=== PATIENT | female | born 1945 | race Caucasian/White ===

== ENCOUNTER → 2016-06-18 | Outpatient (REF) | payer MEDICARE | LOC: M LAB REF 12:09 | PROVIDERS: ATTEND Physician Assistant Medical | DX: J02.9 Acute pharyngitis, unspecified (principal) ==

== ENCOUNTER 2016-10-18 17:30 | Emergency (ER) | payer MEDICARE ==
[~2016-10-18] VITALS: Ht 165.1 cm; Wt 54.7 kg
[2016-10-18] MEDS ORDERED: ESTR625TA (17:54)
[2016-10-18] MEDS ORDERED: CHLO125TA (17:54)
[2016-10-18] MEDS ORDERED: PANT40TA2 (17:54)
[2016-10-18] MEDS ORDERED: [UNRECOGNIZED DRUG - CODE] (17:54)
[2016-10-18] MEDS ORDERED: CHLO4TAB PO (17:54)
[2016-10-18] MEDS ORDERED: METH4PACK (17:54)
[2016-10-18] MEDS ORDERED: VITA200015 PO (17:54)
[2016-10-18] MEDS ORDERED: CLOP75TA2 (17:54)
[2016-10-18] MEDS ORDERED: LODI400T PO (17:54)
[2016-10-18 18:51] LABS: BASO # 0.1 K/mm3 (0.0-0.2); BASO % 0.9 % (0.0-1.0); EOS # 0.4 K/mm3 (0.0-0.50); EOS % 3.8 % (0.0-3.0); LARGE UNSTAINED CELL # 0.2 K/mm3 (0.0-0.4); LARGE UNSTAINED CELL % 1.5 % (0.0-4.0); LYMPH # 2.2 K/mm3 (1.5-4.5); LYMPH % 23.4 % (24.0-44.0); MEAN CORPUSCULAR HEMOGLOBIN 31.5 pg (27.0-33.0); MEAN CORPUSCULAR VOLUME 89.9 fl (80.0-96.0); MONO # 0.6 K/mm3 (0.0-0.8); MONO % 5.9 % (0.0-5.0); NEUTROPHILS # 6.1 K/mm3 (1.8-7.7); NEUTROPHILS % 64.4 % (36.0-66.0); PLATELET COUNT, AUTOMATED 302 k/mm3 (150-450); WHITE BLOOD COUNT 9.5 K/mm3 (4.0-10.0)
[2016-10-18 18:54] LABS: INR 0.85
[2016-10-18 18:56] LABS: CALCIUM LEVEL 9.1 MG/DL (8.8-10.2); CREATININE FOR GFR 0.98 MG/DL (0.55-1.02); GLOMERULAR FILTRATION RATE 59.6 (>39); POTASSIUM SERUM 3.6 MEQ/L (3.5-5.1)
--- NOTE | 2016-10-18 19:06 | REP ---
Clinical: Trauma. Headache . Comparison: None . Findings: The ventricles, sulci, and cisterns are normal in position and appearance. Cardona-white differentiation is maintained. No acute intracranial hemorrhage, mass/mass effect, pathology or trauma/injury. No evidence for acute infarction. No extra-axial fluid collection. Calvarium is intact. Paranasal sinuses and mastoid air cells are clear. 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 Impression: Prior aneurysmal clipping. No evidence for acute intracranial pathology or trauma/injury. Signed by Gavin Taylor MD 10/18/2016 06:57 P
--- NOTE | 2016-10-18 19:09 | REP ---
Clinical: Trauma. Technique: Axial noncontrast images from the skull base to the thoracic inlet with coronal and sagittal re-formations. Findings: Advanced multilevel degenerative changes include osteophytosis, endplate sclerosis and disc space narrowing along with hypertrophic changes to the uncovertebral joints. Findings are most pronounced at C1-C2 and the C4-5 and C3-4 levels as well as the C7-T1 level. No acute fracture / compression injury or subluxation. Spinal canal is patent. Posterior elements and spinous processes are intact. Paravertebral soft tissues are normal. Impression: Advanced multilevel degenerative changes. No acute fracture / compression injury or subluxation. Signed by Gavin Taylor MD 10/18/2016 07:00 P
--- NOTE | 2016-10-18 19:11 | REP ---
Clinical: Trauma. Technique: Axial noncontrast images through the facial bones to include the mandible with coronal and sagittal re-formations. Findings: A small scalp contusion overlies the midline frontal bone. Nasal bone and nasal septal deviation to the left appears chronic. The osseous structures are intact and there is no evidence for fracture or dislocation. Specifically, the bilateral zygomatic arches, nasal bones, and mandible including bilateral temporomandibular joints appear normal and symmetric. Mucoperiosteal opacification of the right maxillary sinus suggest sinusitis. The remainder of the sinuses and mastoid air cells are all well aerated and clear without fluid level to suggest occult trauma. The bilateral orbits including the globes and intraconal contents appear symmetric and normal. The surrounding soft tissues are grossly unremarkable. Impression: Mucoperiosteal opacification of the right maxillary sinus likely representing sinus disease and less likely trauma. No evidence for acute pathology or trauma/injury. Signed by Gavin Taylor MD 10/18/2016 07:03 P
[2016-10-18 20:20] VITALS: BP 138/64
== END 2016-10-18 20:21 | disposition home or self-care (01) ==
LOC: M ED 17:30
DX: R51 Headache (principal); Z98.890 Other specified postprocedural states; I72.8 Aneurysm of other specified arteries; Z86.79 Personal history of other diseases of the circulatory system; K57.30 Diverticulosis of large intestine without perforation or abscess without bleeding; Z87.42 Personal history of other diseases of the female genital tract; I47.1 Supraventricular tachycardia; M50.821 Other cervical disc disorders at C4-C5 level; M50.83 Other cervical disc disorders, cervicothoracic region; M50.81 Other cervical disc disorders, high cervical region; Z79.899 Other long term (current) drug therapy; Z88.6 Allergy status to analgesic agent; Z88.5 Allergy status to narcotic agent; Z88.2 Allergy status to sulfonamides; Z88.8 Allergy status to other drugs, medicaments and biological substances

== ENCOUNTER → 2016-11-08 | Outpatient (REF) | payer MEDICARE ==
[~2016-11-08] MED LIST: ASPI325T PO; AUGM875T28 PO; CHLO125TA; CHLO4TAB PO; CLOP75TA2; ESTR625TA; LODI400T PO; MAGN30TA2 PO; METH4PACK; PANT40TA2; VITA200015 PO; [UNRECOGNIZED DRUG - CODE]
[2016-11-08 14:29] LABS: BASO # 0.1 K/mm3 (0.0-0.2); BASO % 1.1 % (0.0-1.0); EOS # 0.4 K/mm3 (0.0-0.50); EOS % 5.4 % (0.0-3.0); LARGE UNSTAINED CELL # 0.1 K/mm3 (0.0-0.4); LARGE UNSTAINED CELL % 1.7 % (0.0-4.0); LYMPH # 1.8 K/mm3 (1.5-4.5); LYMPH % 23.7 % (24.0-44.0); MEAN CORPUSCULAR HEMOGLOBIN 31.8 pg (27.0-33.0); MEAN CORPUSCULAR HGB CONC 34.8 g/dl (32.0-36.5); MEAN CORPUSCULAR VOLUME 91.2 fl (80.0-96.0); MONO # 0.4 K/mm3 (0.0-0.8); MONO % 6.1 % (0.0-5.0); NEUTROPHILS # 4.4 K/mm3 (1.8-7.7); NEUTROPHILS % 62.1 % (36.0-66.0); PLATELET COUNT, AUTOMATED 322 k/mm3 (150-450)
== END ==
LOC: M LABDRWAD 13:58
PROVIDERS: ATTEND Physician Assistant Medical
DX: G50.1 Atypical facial pain (principal)

== ENCOUNTER 2016-11-09 11:01 | Emergency (ER) | payer MEDICARE ==
[~2016-11-09] VITALS: Ht 165.1 cm; Wt 54.5 kg
[~2016-11-09 11:01] MED LIST changes: -ASPI325T PO; -AUGM875T28 PO; -MAGN30TA2 PO
[2016-11-09 11:02] VITALS: BP 148/63
[2016-11-09] MEDS ORDERED: AUGM875T28 PO ×2 (11:17→11:40)
[2016-11-09] MEDS ORDERED: ASPI325T PO (11:17)
[2016-11-09] MEDS ORDERED: MAGN30TA2 PO (11:17)
== END 2016-11-09 11:53 | disposition home or self-care (01) ==
LOC: M ED 11:01
DX: K11.20 Sialoadenitis, unspecified (principal); Z79.82 Long term (current) use of aspirin; Z79.899 Other long term (current) drug therapy; Z88.6 Allergy status to analgesic agent; Z88.2 Allergy status to sulfonamides; Z88.5 Allergy status to narcotic agent; Z88.1 Allergy status to other antibiotic agents; Z88.8 Allergy status to other drugs, medicaments and biological substances

== ENCOUNTER → 2016-11-12 | Outpatient (REF) | payer MEDICARE ==
[~2016-11-12] MED LIST changes: +ASPI325T PO; +AUGM875T28 PO; +MAGN30TA2 PO
== END ==
LOC: M LAB REF 16:31
PROVIDERS: ATTEND Nurse Practitioner Family
DX: E83.42 Hypomagnesemia (principal)

== ENCOUNTER 2017-03-29 11:29 | Emergency (ER) | payer MEDICARE ==
[~2017-03-29] VITALS: Ht 165.1 cm; Wt 54.5 kg
[2017-03-29] MEDS ORDERED: ZOFR20TA PO (11:46)
[2017-03-29] MEDS ORDERED: MECLIZINE 25 MG TABLET PO ONE ×2 (12:30→14:15)
[2017-03-29] MEDS ORDERED: ONDANSETRON 4MG/2ML VIAL (J2405) IV ONE (12:30)
[2017-03-29] MEDS ORDERED: SODIUM CHLORIDE 0.9% 1000 ML IV ONE (12:30)
[2017-03-29 12:38] LABS: BASO # 0.1 10^3/uL (0.0-0.2); BASO % 0.7 % (0.0-1.0); EOS # 0.2 10^3/uL (0.0-0.50); EOS % 2.9 % (0.0-3.0); IMMATURE GRANULOCYTE % 0.3 % (0-0); LYMPH # 2.2 10^3/uL (1.5-4.5); LYMPH % 29.8 % (24.0-44.0); MEAN CORPUSCULAR HEMOGLOBIN 30.9 pg (27.0-33.0); MEAN CORPUSCULAR HGB CONC 33.9 g/dl (32.0-36.5); MONO # 0.6 10^3/uL (0.0-0.8); MONO % 8.3 % (0.0-5.0); NEUTROPHILS # 4.3 10^3/uL (1.8-7.7); PLATELET COUNT, AUTOMATED 289 10^3/uL (150-450); RED CELL DISTRIBUTION WIDTH 12.8 % (11.5-14.5); WHITE BLOOD COUNT 7.4 10^3/uL (4.0-10.0)
--- NOTE | 2017-03-29 12:54 | REP ---
CT of the brain without IV contrast: Comparison is 10/18/2016. There is no hemorrhage. There is no edema, mass effect or midline shift. The cortical stripe is unremarkable. The visualized paranasal sinuses and mastoid air cells are clear. An aneurysm clip is again identified, unchanged. Impression: There is no hemorrhage, acute infarct or mass. There is an aneurysm clip. No change from 10/18/2016. Signed by Jose De Jesus Reeves MD 03/29/2017 12:46 P
[2017-03-29 13:43] LABS: ANION GAP 8 MEQ/L (8-16); BLOOD UREA NITROGEN 23 MG/DL (7-18); CALCIUM LEVEL 9.2 MG/DL (8.8-10.2); CARBON DIOXIDE LEVEL 32 MEQ/L (21-32); CHLORIDE LEVEL 99 MEQ/L (98-107); CREATININE FOR GFR 0.96 MG/DL (0.55-1.02); FREE T4 1.04 NG/DL (0.76-1.46); GLOMERULAR FILTRATION RATE > 60.0 (>39); GLUCOSE, FASTING 84 MG/DL (83-110); MAGNESIUM LEVEL 1.7 MG/DL (1.8-2.4); POTASSIUM SERUM 3.7 MEQ/L (3.5-5.1); SODIUM LEVEL 139 MEQ/L (136-145)
[2017-03-29 14:01] LABS: METHADONE URINE NEGATIVE (NEGATIVE)
[2017-03-29] MEDS ORDERED: diazePAM 2 MG TAB PO ONE (14:15)
[2017-03-29] MEDS ORDERED: MAG SULF 1GM/100ML (MAG RUN) 1 GM in APPROPRIATE DILUENT 1 EA IV ONE (15:00)
[2017-03-29] MEDS ORDERED: DIAZ2TAB PO (15:20)
[2017-03-29] MEDS ORDERED: MECL-86 PO (15:20)
[2017-03-29] MEDS ORDERED: ONDA4TAB6 PO (15:20)
[2017-03-29 15:32] VITALS: BP 118/58
--- NOTE | 2017-03-29 19:38 | ECGEPIP ---
Stationary ECG Study [facility] - ED Test Date: 2017-03-29 Pat Name: VENUS GOLDEN Department: Room: - Gender: F Residential Sales Manager: fredis : 1945 Requested By: Joe Martinez Order Number: [id number] Reading MD: Joe Martinez Measurements Intervals Max Rate: 62 P: 13 CA: 181 QRS: -29 QRSD: 82 T: 46 QT: 443 QTc: 450 Interpretive Statements SINUS RHYTHM POSSIBLE RIGHT VENTRICULAR CONDUCTION DELAY MODERATE VOLTAGE CRITERIA FOR LVH, CONSIDER NORMAL VARIANT INFERIOR MYOCARDIAL INFARCTION, PROBABLY OLD LAD NO OLD ECG TO COMPARE TO Electronically Signed On 03-29-2017 19:38:27 EST by Joe Martinez
== END 2017-03-29 15:40 | disposition home or self-care (01) ==
LOC: M ED 11:29
DX: H81.10 Benign paroxysmal vertigo, unspecified ear (principal); I47.9 Paroxysmal tachycardia, unspecified; Z95.5 Presence of coronary angioplasty implant and graft; Z85.828 Personal history of other malignant neoplasm of skin; Z86.73 Personal history of transient ischemic attack (TIA), and cerebral infarction without residual deficits; Z79.82 Long term (current) use of aspirin; Z79.899 Other long term (current) drug therapy; Z88.8 Allergy status to other drugs, medicaments and biological substances; Z88.1 Allergy status to other antibiotic agents; Z88.2 Allergy status to sulfonamides; Z88.5 Allergy status to narcotic agent
CPT/HCPCS: 70450; 80048; 80307; 82550; 82553; 83605; 83735; 84439; 84443; 84484; 85025; 93005; 93041; 94760; 96365; 96375; 99285; J2405; J3475

== ENCOUNTER 2017-04-16 22:26 | Inpatient (IN) | payer MEDICARE ==
[2017-04-16] MEDS: NS 1,000 ML IV (22:57)
[2017-04-16 23:05] LABS: BASO # 0.1 10^3/uL (0.0-0.2); BASO % 0.3 % (0.0-1.0); EOS # 0.2 10^3/uL (0.0-0.50); EOS % 0.5 % (0.0-3.0); HEMATOCRIT 28.7 % (36.0-47.0); HEMOGLOBIN 9.9 g/dl (12.0-16.0); IMMATURE GRANULOCYTE # 0.4 10^3/uL (0-0); IMMATURE GRANULOCYTE % 1.2 % (0-0); LYMPH # 3.3 10^3/uL (1.5-4.5); LYMPH % 10.9 % (24.0-44.0); MEAN CORPUSCULAR HEMOGLOBIN 31.5 pg (27.0-33.0); MEAN CORPUSCULAR HGB CONC 34.5 g/dl (32.0-36.5); MEAN CORPUSCULAR VOLUME 91.4 fl (80.0-96.0); MONO # 1.6 10^3/uL (0.0-0.8); MONO % 5.1 % (0.0-5.0); PLATELET COUNT, AUTOMATED 332 10^3/uL (150-450); RED BLOOD COUNT 3.14 10^6/uL (4.00-5.40); RED CELL DISTRIBUTION WIDTH 13.1 % (11.5-14.5)
[2017-04-16 23:07] LABS: INR 0.89; PROTHROMBIN TIME 12.1 SECONDS (12.4-14.5)
[2017-04-16 23:08] LABS: PARTIAL THROMBOPLASTIN TIME 23.5 SECONDS (26.8-37.9)
[2017-04-16] MEDS: ONDANSETRON 4MG/2ML VIAL (J2405) IV (23:15)
[2017-04-16] MEDS: PANTOPRAZOLE 40MG INJ (PROTONIX) (C9113) IV (23:15)
[2017-04-16 23:19] LABS: ALBUMIN 2.7 GM/DL (3.2-5.2); ALBUMIN/GLOBULIN RATIO 0.84 (1.00-1.93); ALKALINE PHOSPHATASE 64 U/L (45-117); ANION GAP 11 MEQ/L (8-16); AST/SGOT 18 U/L (7-37); BILIRUBIN,DIRECT < 0.1 MG/DL (0.0-0.2); BILIRUBIN,TOTAL 0.2 MG/DL (0.2-1.0); BLOOD UREA NITROGEN 38 MG/DL (7-18); CALCIUM LEVEL 8.4 MG/DL (8.8-10.2); CARBON DIOXIDE LEVEL 28 MEQ/L (21-32); CHLORIDE LEVEL 100 MEQ/L (98-107); CPK CREATINE PHOSPHOKINASE 29 U/L (26-192); CREATININE FOR GFR 1.03 MG/DL (0.55-1.02); GLOMERULAR FILTRATION RATE 56.2 (>39); GLUCOSE, FASTING 256 MG/DL (83-110); LIPASE 226 U/L (73-393); POTASSIUM SERUM 3.3 MEQ/L (3.5-5.1); SODIUM LEVEL 139 MEQ/L (136-145); TOTAL PROTEIN 5.9 GM/DL (6.4-8.2); TROPONIN I < 0.02 NG/ML (< 0.10)
[2017-04-16 23:22] LABS: NEUTROPHILS # 25.1 10^3/uL (1.8-7.7); POS COUNT POS FLAG; POSITIVE DIFF POS FLAG; WHITE BLOOD COUNT 30.6 10^3/uL (4.0-10.0)
[2017-04-16 23:30] LABS: ALT/SGPT 16 U/L (12-78); CK-MB VALUE MASS 1.2 NG/ML (0.0-3.6); MB/CK RELATIVE INDEX 4.13 (< OR =4)
[2017-04-16] MEDS: POTASSIUM CHLORIDE 10 MEQ SR TABLET PO (23:38)
[2017-04-17] MEDS ORDERED: PANTOPRAZOLE SODIUM 40 MG in D5W 50 ML IV (00:30)
[2017-04-17] MEDS: NS 1,000 ML IV (01:46)
[2017-04-17 02:06] LABS: IMMEDIATE SPIN CROSSMATCH 1 2
[2017-04-17] MEDS: PANTOPRAZOLE SODIUM 40 MG in D5W 50 ML IV ×5 (03:24→20:28)
[2017-04-17 05:13] LABS: HEMATOCRIT 29.5 % (36.0-47.0); HEMOGLOBIN 10.3 g/dl (12.0-16.0); MEAN CORPUSCULAR HEMOGLOBIN 29.4 pg (27.0-33.0); MEAN CORPUSCULAR HGB CONC 34.9 g/dl (32.0-36.5); MEAN CORPUSCULAR VOLUME 84.3 fl (80.0-96.0); RED CELL DISTRIBUTION WIDTH 16.3 % (11.5-14.5)
[2017-04-17 05:14] LABS: HEMOGLOBIN 10.1 g/dl (12.0-16.0)
[2017-04-17 05:25] LABS: PLATELET COUNT, AUTOMATED 212 10^3/uL (150-450)
[2017-04-17 05:31] LABS: ANION GAP 12 MEQ/L (8-16); BLOOD UREA NITROGEN 34 MG/DL (7-18); CALCIUM LEVEL 7.2 MG/DL (8.8-10.2); CARBON DIOXIDE LEVEL 25 MEQ/L (21-32); CHLORIDE LEVEL 109 MEQ/L (98-107); CREATININE FOR GFR 0.77 MG/DL (0.55-1.02); GLOMERULAR FILTRATION RATE > 60.0 (>39); GLUCOSE, FASTING 132 MG/DL (83-110); POTASSIUM SERUM 3.6 MEQ/L (3.5-5.1); SODIUM LEVEL 146 MEQ/L (136-145)
[2017-04-17] MEDS: NS 0.45% 1,000 ML IV ×2 (09:57→19:25)
[2017-04-17] MEDS: KCL 10MEQ IN 100ML SWI (KRUN) 10 MEQ in APPROPRIATE DILUENT 1 EA IV (11:09)
[2017-04-17] MEDS ORDERED: PROPOFOL 200 MG/20 ML VIAL As Ordered ×2 (13:22→13:31)
[2017-04-17] MEDS ORDERED: LIDOCAINE 2% INJ 100 MG/5 ML SDV (FOR ANES.) As Ordered (13:23)
[2017-04-17 14:34] LABS: HEMOGLOBIN 9.2 g/dl (12.0-16.0)
[2017-04-17 18:13] LABS: HEMOGLOBIN 8.9 g/dl (12.0-16.0)
[2017-04-18 00:08] LABS: HEMOGLOBIN 8.2 g/dl (12.0-16.0)
[2017-04-18] MEDS: PANTOPRAZOLE SODIUM 40 MG in D5W 50 ML IV ×2 (01:04→06:33)
[2017-04-18] MEDS: NS 0.45% 1,000 ML IV (05:11)
[2017-04-18 05:13] LABS: HEMATOCRIT 23.5 % (36.0-47.0); HEMOGLOBIN 8.3 g/dl (12.0-16.0); MEAN CORPUSCULAR HEMOGLOBIN 29.7 pg (27.0-33.0); MEAN CORPUSCULAR HGB CONC 35.3 g/dl (32.0-36.5); MEAN CORPUSCULAR VOLUME 84.2 fl (80.0-96.0); PLATELET COUNT, AUTOMATED 169 10^3/uL (150-450); RED BLOOD COUNT 2.79 10^6/uL (4.00-5.40); RED CELL DISTRIBUTION WIDTH 17.3 % (11.5-14.5); WHITE BLOOD COUNT 7.1 10^3/uL (4.0-10.0)
[2017-04-18 05:23] LABS: ANION GAP 8 MEQ/L (8-16); BLOOD UREA NITROGEN 18 MG/DL (7-18); CALCIUM LEVEL 6.9 MG/DL (8.8-10.2); CARBON DIOXIDE LEVEL 28 MEQ/L (21-32); CHLORIDE LEVEL 107 MEQ/L (98-107); CREATININE FOR GFR 0.65 MG/DL (0.55-1.02); GLOMERULAR FILTRATION RATE > 60.0 (>39); GLUCOSE, FASTING 100 MG/DL (83-110); POTASSIUM SERUM 3.2 MEQ/L (3.5-5.1); SODIUM LEVEL 143 MEQ/L (136-145)
[2017-04-18] MEDS: POTASSIUM CHLORIDE 10 MEQ SR TABLET PO ×2 (06:47→10:18)
[2017-04-18] MEDS ORDERED: KCL 10MEQ IN 100ML SWI (KRUN) 10 MEQ in APPROPRIATE DILUENT 1 EA IV (07:00)
[2017-04-18] MEDS: ACETAMINOPHEN TAB 650MG DOSE (2X325MG) PO (08:08)
[2017-04-18 08:32] LABS: MAGNESIUM LEVEL 1.7 MG/DL (1.8-2.4)
[2017-04-18] MEDS: PANTOPRAZOLE 40MG TAB (PROTONIX) PO (10:18)
[2017-04-18] MEDS: diazePAM 2 MG TAB PO (10:30)
[2017-04-18] MEDS ORDERED: SLF 3 ML SYR IV (11:15)
[2017-04-18 12:13] LABS: HEMOGLOBIN 9.2 g/dl (12.0-16.0)
[2017-04-18] MEDS: SLF 3 ML SYR IV ×2 (13:26→21:04)
[2017-04-18] MEDS: ASPIRIN 81 MG CHEW TABLET PO (16:30)
[2017-04-18] MEDS: MAGNESIUM OXIDE 400 MG TAB (MAG-OX) PO (21:02)
[2017-04-18] MEDS: METOPROLOL TART 12.5 MG PER 1/2 TAB PO (21:03)
[2017-04-19 04:31] LABS: HEMATOCRIT 24.6 % (36.0-47.0); HEMOGLOBIN 8.3 g/dl (12.0-16.0); MEAN CORPUSCULAR HEMOGLOBIN 29.6 pg (27.0-33.0); MEAN CORPUSCULAR HGB CONC 33.7 g/dl (32.0-36.5); MEAN CORPUSCULAR VOLUME 87.9 fl (80.0-96.0); PLATELET COUNT, AUTOMATED 185 10^3/uL (150-450); RED CELL DISTRIBUTION WIDTH 16.9 % (11.5-14.5); WHITE BLOOD COUNT 6.3 10^3/uL (4.0-10.0)
[2017-04-19 04:47] LABS: ANION GAP 6 MEQ/L (8-16); BLOOD UREA NITROGEN 21 MG/DL (7-18); CALCIUM LEVEL 7.8 MG/DL (8.8-10.2); CARBON DIOXIDE LEVEL 30 MEQ/L (21-32); CHLORIDE LEVEL 107 MEQ/L (98-107); CREATININE FOR GFR 0.75 MG/DL (0.55-1.02); GLOMERULAR FILTRATION RATE > 60.0 (>39); GLUCOSE, FASTING 125 MG/DL (83-110); POTASSIUM SERUM 3.9 MEQ/L (3.5-5.1); SODIUM LEVEL 143 MEQ/L (136-145)
[2017-04-19] MEDS: SLF 3 ML SYR IV ×3 (06:00→20:55)
[2017-04-19 08:53] LABS: MAGNESIUM LEVEL 1.7 MG/DL (1.8-2.4)
[2017-04-19] MEDS: ASPIRIN 81 MG CHEW TABLET PO (09:07)
[2017-04-19] MEDS: PANTOPRAZOLE 40MG TAB (PROTONIX) PO (09:07)
[2017-04-19] MEDS: MAGNESIUM OXIDE 400 MG TAB (MAG-OX) PO ×2 (09:08→20:54)
[2017-04-19 11:57] LABS: HEMATOCRIT 26.3 % (36.0-47.0)
[2017-04-19 18:15] LABS: HEMATOCRIT 26.6 % (36.0-47.0); HEMOGLOBIN 9.2 g/dl (12.0-16.0)
[2017-04-19] MEDS: METOPROLOL TART 12.5 MG PER 1/2 TAB PO (20:54)
[2017-04-20] MEDS: MAG SULF 1GM/100ML (MAG RUN) 1 GM in APPROPRIATE DILUENT 1 EA IV (00:15)
[2017-04-20 00:21] LABS: HEMATOCRIT 23.5 % (36.0-47.0); HEMOGLOBIN 7.9 g/dl (12.0-16.0)
[2017-04-20 05:39] LABS: HEMATOCRIT 22.5 % (36.0-47.0); HEMOGLOBIN 7.6 g/dl (12.0-16.0); MEAN CORPUSCULAR HEMOGLOBIN 29.9 pg (27.0-33.0); MEAN CORPUSCULAR HGB CONC 33.8 g/dl (32.0-36.5); MEAN CORPUSCULAR VOLUME 88.6 fl (80.0-96.0); PLATELET COUNT, AUTOMATED 191 10^3/uL (150-450); RED BLOOD COUNT 2.54 10^6/uL (4.00-5.40); RED CELL DISTRIBUTION WIDTH 16.3 % (11.5-14.5); WHITE BLOOD COUNT 6.6 10^3/uL (4.0-10.0)
[2017-04-20 05:45] LABS: ANION GAP 8 MEQ/L (8-16); BLOOD UREA NITROGEN 22 MG/DL (7-18); CALCIUM LEVEL 7.8 MG/DL (8.8-10.2); CARBON DIOXIDE LEVEL 30 MEQ/L (21-32); CHLORIDE LEVEL 105 MEQ/L (98-107); CREATININE FOR GFR 0.69 MG/DL (0.55-1.02); GLOMERULAR FILTRATION RATE > 60.0 (>39); GLUCOSE, FASTING 109 MG/DL (83-110); MAGNESIUM LEVEL 2.1 MG/DL (1.8-2.4); POTASSIUM SERUM 3.6 MEQ/L (3.5-5.1); SODIUM LEVEL 143 MEQ/L (136-145)
[2017-04-20] MEDS: SLF 3 ML SYR IV ×3 (06:00→21:18)
[2017-04-20] MEDS: ASPIRIN 81 MG CHEW TABLET PO (09:01)
[2017-04-20] MEDS: PANTOPRAZOLE 40MG TAB (PROTONIX) PO (09:01)
[2017-04-20] MEDS: MAGNESIUM OXIDE 400 MG TAB (MAG-OX) PO (09:01)
[2017-04-20] MEDS: ACETAMINOPHEN TAB 650MG DOSE (2X325MG) PO (10:09)
[2017-04-20 12:05] LABS: IMMEDIATE SPIN CROSSMATCH 1 2
[2017-04-20 15:07] LABS: HEMATOCRIT 28.4 % (36.0-47.0); HEMOGLOBIN 9.8 g/dl (12.0-16.0)
[2017-04-20] MEDS: ONDANSETRON 4MG/2ML VIAL (J2405) IV (16:47)
[2017-04-20] MEDS: LR 1,000 ML IV (17:32)
[2017-04-20] MEDS: diazePAM 2 MG TAB PO (19:29)
[2017-04-20 19:49] LABS: HEMATOCRIT 26.8 % (36.0-47.0); HEMOGLOBIN 9.1 g/dl (12.0-16.0)
[2017-04-20] MEDS: PANTOPRAZOLE 40MG INJ (PROTONIX) (C9113) IV (21:18)
[2017-04-20] MEDS: METOPROLOL TART 12.5 MG PER 1/2 TAB PO (21:18)
[2017-04-21 00:03] LABS: HEMATOCRIT 23.7 % (36.0-47.0); HEMOGLOBIN 8.1 g/dl (12.0-16.0)
[2017-04-21] MEDS: LR 1,000 ML IV ×2 (02:30→21:10)
[2017-04-21 04:35] LABS: HEMATOCRIT 23.2 % (36.0-47.0); HEMOGLOBIN 7.8 g/dl (12.0-16.0); MEAN CORPUSCULAR HGB CONC 33.6 g/dl (32.0-36.5); MEAN CORPUSCULAR VOLUME 86.2 fl (80.0-96.0); PLATELET COUNT, AUTOMATED 191 10^3/uL (150-450); RED BLOOD COUNT 2.69 10^6/uL (4.00-5.40); WHITE BLOOD COUNT 7.2 10^3/uL (4.0-10.0)
[2017-04-21 04:59] LABS: ANION GAP 8 MEQ/L (8-16); BLOOD UREA NITROGEN 26 MG/DL (7-18); CALCIUM LEVEL 7.2 MG/DL (8.8-10.2); CARBON DIOXIDE LEVEL 27 MEQ/L (21-32); CHLORIDE LEVEL 108 MEQ/L (98-107); CREATININE FOR GFR 0.66 MG/DL (0.55-1.02); GLOMERULAR FILTRATION RATE > 60.0 (>39); GLUCOSE, FASTING 96 MG/DL (83-110); MAGNESIUM LEVEL 1.9 MG/DL (1.8-2.4); POTASSIUM SERUM 4.1 MEQ/L (3.5-5.1); SODIUM LEVEL 143 MEQ/L (136-145)
[2017-04-21] MEDS: SLF 3 ML SYR IV ×3 (06:00→21:09)
[2017-04-21] MEDS: PANTOPRAZOLE 40MG INJ (PROTONIX) (C9113) IV ×2 (08:01→21:08)
[2017-04-21] MEDS: diazePAM 2 MG TAB PO (08:01)
[2017-04-21 08:12] LABS: HEMATOCRIT 23.9 % (36.0-47.0); HEMOGLOBIN 8.1 g/dl (12.0-16.0)
[2017-04-21] MEDS: FLUTICASONE PROP 0.05% NASAL SPRAY 16 GM (FLONASE) (10:04)
[2017-04-21 10:40] LABS: IMMEDIATE SPIN CROSSMATCH 1 3
[2017-04-21] MEDS: ONDANSETRON 4MG/2ML VIAL (J2405) IV (10:43)
[2017-04-21] MEDS: ACETAMINOPHEN TAB 650MG DOSE (2X325MG) PO (10:44)
[2017-04-21] MEDS: LORazepam 2 MG/ML VIAL (J2060) IV ×2 (11:15→21:08)
[2017-04-21 13:41] LABS: HEMATOCRIT 26.6 % (36.0-47.0)
[2017-04-21 15:54] LABS: HEMATOCRIT 26.1 % (36.0-47.0); HEMOGLOBIN 8.8 g/dl (12.0-16.0)
[2017-04-21] MEDS: METOPROLOL TART 12.5 MG PER 1/2 TAB PO (21:09)
[2017-04-21 21:16] LABS: HEMATOCRIT 27.5 % (36.0-47.0); HEMOGLOBIN 9.2 g/dl (12.0-16.0)
[2017-04-22 01:18] LABS: INR 0.93; PROTHROMBIN TIME 12.5 SECONDS (12.4-14.5)
[2017-04-22 01:20] LABS: PARTIAL THROMBOPLASTIN TIME 23.7 SECONDS (26.8-37.9)
[2017-04-22 01:36] LABS: LACTIC ACID SEPSIS PROTOCOL 2.4 MMOL/L (0.4-2.0)
[2017-04-22 01:39] LABS: BASO % 0.4 % (0.0-1.0); EOS # 0.4 10^3/uL (0.0-0.50); EOS % 3.9 % (0.0-3.0); HEMATOCRIT 26.9 % (36.0-47.0); IMMATURE GRANULOCYTE # 0.1 10^3/uL (0-0); IMMATURE GRANULOCYTE % 0.7 % (0-0); LYMPH # 2.3 10^3/uL (1.5-4.5); LYMPH % 23.4 % (24.0-44.0); MEAN CORPUSCULAR HEMOGLOBIN 29.5 pg (27.0-33.0); MEAN CORPUSCULAR HGB CONC 33.5 g/dl (32.0-36.5); MEAN CORPUSCULAR VOLUME 88.2 fl (80.0-96.0); MONO # 0.7 10^3/uL (0.0-0.8); MONO % 6.7 % (0.0-5.0); NEUTROPHILS # 6.3 10^3/uL (1.8-7.7); NEUTROPHILS % 64.9 % (36.0-66.0); PLATELET COUNT, AUTOMATED 178 10^3/uL (150-450); RED BLOOD COUNT 3.05 10^6/uL (4.00-5.40); WHITE BLOOD COUNT 9.8 10^3/uL (4.0-10.0)
[2017-04-22 01:50] LABS: ANION GAP 8 MEQ/L (8-16); BLOOD UREA NITROGEN 15 MG/DL (7-18); CALCIUM LEVEL 7.9 MG/DL (8.8-10.2); CARBON DIOXIDE LEVEL 26 MEQ/L (21-32); CHLORIDE LEVEL 108 MEQ/L (98-107); CREATININE FOR GFR 0.82 MG/DL (0.55-1.02); GLOMERULAR FILTRATION RATE > 60.0 (>39); GLUCOSE, FASTING 108 MG/DL (83-110); POTASSIUM SERUM 3.8 MEQ/L (3.5-5.1); SODIUM LEVEL 142 MEQ/L (136-145)
[2017-04-22 02:08] LABS: ABG BASE EXCESS 0.5 (-2.0-2.0); ABG HCO3 23.7 MEQ/L (22.0-26.0); ABG O2 SATURATION 97.6 % (95.0-99.0); ABG PARTIAL PRESSURE CO2 32.2 mmHg (35.0-45.0); ABG PARTIAL PRESSURE O2 111.7 mmHg (75.0-100.0); ABG TOTAL CO2 24.6 MEQ/L (23.0-31.0); ABG pH (ARTERIAL) 7.484 UNITS (7.350-7.450)
[2017-04-22] MEDS: ONDANSETRON 4MG/2ML VIAL (J2405) IV ×2 (02:13→07:30)
[2017-04-22] MEDS: GOLYTELY SOLN 4000 ML BTL PO (03:14)
[2017-04-22] MEDS: SLF 3 ML SYR IV (05:54)
== END 2017-04-22 07:33 | disposition short-term general hospital (02) | DRG 378 ==
LOC: M ED 22:26 → M PCU 04-19 18:00 → M ICU 04-22 02:34 → M ED INP 04-17 00:38 → M ICU 04-17 01:23
PROC: 0DJ08ZZ Inspection of Upper Intestinal Tract, Via Natural or Artificial Opening Endoscopic (ICD-10-PCS; 2017-04-17 13:00)
PROC: 30233N1 Transfusion of Nonautologous Red Blood Cells into Peripheral Vein, Percutaneous Approach (ICD-10-PCS; principal; 2017-04-17 13:08)
DX: K92.1 Melena (principal); D62 Acute posthemorrhagic anemia; S06.5X9A Traumatic subdural hemorrhage with loss of consciousness of unspecified duration, initial encounter; F41.9 Anxiety disorder, unspecified; W18.30XA Fall on same level, unspecified, initial encounter; Y92.230 Patient room in hospital as the place of occurrence of the external cause; Z79.82 Long term (current) use of aspirin; Z79.899 Other long term (current) drug therapy; Z88.2 Allergy status to sulfonamides; Z88.8 Allergy status to other drugs, medicaments and biological substances; Z88.5 Allergy status to narcotic agent; Z88.1 Allergy status to other antibiotic agents; I10 Essential (primary) hypertension; I95.1 Orthostatic hypotension; K31.7 Polyp of stomach and duodenum; K57.30 Diverticulosis of large intestine without perforation or abscess without bleeding

== ENCOUNTER → 2017-06-17 | Outpatient (REF) | payer MEDICARE | LOC: M SFHCADAM 14:45 | DX: Z87.828 Personal history of other (healed) physical injury and trauma (principal); D50.0 Iron deficiency anemia secondary to blood loss (chronic); I72.5 Aneurysm of other precerebral arteries; I10 Essential (primary) hypertension ==

== ENCOUNTER → 2017-06-24 | Outpatient (REF) | payer MEDICARE ==
[2017-06-24 20:10] LABS: HEMATOCRIT 35.9 % (36.0-47.0); HEMOGLOBIN 11.3 g/dl (12.0-16.0); MEAN CORPUSCULAR HEMOGLOBIN 28.1 pg (27.0-33.0); MEAN CORPUSCULAR HGB CONC 31.5 g/dl (32.0-36.5); MEAN CORPUSCULAR VOLUME 89.3 fl (80.0-96.0); PLATELET COUNT, AUTOMATED 323 10^3/uL (150-450); RED BLOOD COUNT 4.02 10^6/uL (4.00-5.40); RED CELL DISTRIBUTION WIDTH 14.1 % (11.5-14.5); RETIC HEMOGLOBIN EQUIVALENT 29.5 pg (24-36); RETICULOCYTE # 47.4 10^9/L (17-77); RETICULOCYTE % 1.2 % (0.5-1.5); WHITE BLOOD COUNT 6.1 10^3/uL (4.0-10.0)
[2017-06-24 20:26] LABS: FOLATE 14.9 NG/ML (>5.4); TOTAL 25(OH) VITAMIN D 25.9 NG/ML (30.0-100.0); VITAMIN B12 LEVEL 416 PG/ML (247-911)
[2017-06-24 20:31] LABS: ALBUMIN 3.9 GM/DL (3.2-5.2); ALBUMIN/GLOBULIN RATIO 1.18 (1.00-1.93); ALKALINE PHOSPHATASE 104 U/L (45-117); ALT/SGPT 23 U/L (12-78); ANION GAP 8 MEQ/L (8-16); AST/SGOT 15 U/L (7-37); BILIRUBIN,TOTAL 0.4 MG/DL (0.2-1.0); BLOOD UREA NITROGEN 23 MG/DL (7-18); CALCIUM LEVEL 9.1 MG/DL (8.8-10.2); CARBON DIOXIDE LEVEL 30 MEQ/L (21-32); CHLORIDE LEVEL 103 MEQ/L (98-107); CHOLESTEROL LEVEL 176 MG/DL (<200); CHOLESTEROL RISK RATIO 5.677 (<5); CREATININE FOR GFR 1.06 MG/DL (0.55-1.30); FERRITIN 15 NG/ML (8-252); FREE T4 1.01 NG/DL (0.76-1.46); GLOMERULAR FILTRATION RATE 54.4 (>39); GLUCOSE, FASTING 92 MG/DL (70-100); HDL CHOLESTEROL 31 MG/DL (>40); IRON (FE) 47 UG/DL (50-170); NON-HDL-C 145 MG/DL; PERCENT SATURATION 13.2 % (13.2-45.0); POTASSIUM SERUM 4.4 MEQ/L (3.5-5.1); SODIUM LEVEL 141 MEQ/L (136-145); TOTAL IRON BINDING CAPACITY 357 UG/DL (250-450); TOTAL PROTEIN 7.2 GM/DL (6.4-8.2); TRIGLYCERIDES LEVEL 395 MG/DL (<150)
== END ==
LOC: M SFHCADAM 14:08
DX: D50.0 Iron deficiency anemia secondary to blood loss (chronic) (principal); I72.5 Aneurysm of other precerebral arteries; Z98.890 Other specified postprocedural states; E55.9 Vitamin D deficiency, unspecified; Z79.899 Other long term (current) drug therapy
CPT/HCPCS: 82746

== ENCOUNTER 2017-06-30 08:21 | Outpatient (RCR) | payer MEDICARE | END 2017-07-12 | LOC: M ST 08:21 | DX: R47.01 Aphasia (principal); F09 Unspecified mental disorder due to known physiological condition | CPT/HCPCS: 96125 ==

== ENCOUNTER 2017-07-15 13:17 | Outpatient (RCR) | payer MEDICARE | END 2017-08-11 | LOC: M ST 13:17 | DX: R47.01 Aphasia (principal); F09 Unspecified mental disorder due to known physiological condition | CPT/HCPCS: G0515 ==

== ENCOUNTER → 2017-07-25 | Outpatient (CLI) | payer MEDICARE | LOC: M PLARAD 13:01 | DX: R42 Dizziness and giddiness (principal); I67.2 Cerebral atherosclerosis | CPT/HCPCS: 70544 ==

== ENCOUNTER → 2017-10-31 | Outpatient (CLI) | payer MEDICARE | LOC: M ADAMS 16:09 | DX: M19.011 Primary osteoarthritis, right shoulder (principal); M25.711 Osteophyte, right shoulder; M75.81 Other shoulder lesions, right shoulder | CPT/HCPCS: 73030 ==

== ENCOUNTER 2017-11-24 | Emergency (ER) | payer MEDICARE ==
[2017-11-24] MEDS: NS 1,000 ML IV (00:58)
[2017-11-24 01:07] LABS: BASO # 0.1 10^3/uL (0.0-0.2); BASO % 0.7 % (0.0-1.0); EOS # 0.2 10^3/uL (0.0-0.50); EOS % 3.2 % (0.0-3.0); HEMATOCRIT 36.2 % (36.0-47.0); IMMATURE GRANULOCYTE % 0.6 % (0-3.0); LYMPH % 27.8 % (24.0-44.0); MEAN CORPUSCULAR HEMOGLOBIN 29.3 pg (27.0-33.0); MEAN CORPUSCULAR HGB CONC 33.1 g/dl (32.0-36.5); MEAN CORPUSCULAR VOLUME 88.5 fl (80.0-96.0); MONO # 0.6 10^3/uL (0.0-0.8); NEUTROPHILS # 4.2 10^3/uL (1.8-7.7); NEUTROPHILS % 58.7 % (36.0-66.0); PLATELET COUNT, AUTOMATED 243 10^3/uL (150-450); RED BLOOD COUNT 4.09 10^6/uL (4.00-5.40); RED CELL DISTRIBUTION WIDTH 13.6 % (11.5-14.5); WHITE BLOOD COUNT 7.1 10^3/uL (4.0-10.0)
[2017-11-24 01:22] LABS: ANION GAP 7 MEQ/L (8-16); BLOOD UREA NITROGEN 19 MG/DL (7-18); CALCIUM LEVEL 9.1 MG/DL (8.8-10.2); CARBON DIOXIDE LEVEL 27 MEQ/L (21-32); CHLORIDE LEVEL 107 MEQ/L (98-107); CREATININE FOR GFR 1.07 MG/DL (0.55-1.30); GLOMERULAR FILTRATION RATE 53.7 (>39); GLUCOSE, FASTING 144 MG/DL (70-100); KETONE, URINE AUTO RFX NEGATIVE (NEGATIVE); LEUKOCYTE ESTERASE UR AUTO RFX NEGATIVE (NEGATIVE); NITRITE, URINE AUTO RFX NEGATIVE (NEGATIVE); RBC, URINE AUTO RFX 2 /HPF (0-3); SODIUM LEVEL 141 MEQ/L (136-145); SPECIFIC GRAVITY UR AUTO RFX 1.002 (1.002-1.035); SQUAM EPITHELIAL CELL UR AURFX 0 /HPF (0-6); WBC, URINE AUTO RFX 0 /HPF (0-3)
[2017-11-24] MEDS: KETOROLAC 30 MG/ML VIAL (J1885) IV (01:45)
[2017-11-24] MEDS: TAMSULOSIN 0.4 MG CAP PO (01:50)
== END 2017-11-24 02:02 | disposition home or self-care (01) ==
LOC: M ED
DX: N20.1 Calculus of ureter (principal); K21.9 Gastro-esophageal reflux disease without esophagitis; Z87.442 Personal history of urinary calculi; Z88.1 Allergy status to other antibiotic agents; Z88.8 Allergy status to other drugs, medicaments and biological substances; Z88.2 Allergy status to sulfonamides; Z79.82 Long term (current) use of aspirin; Z79.899 Other long term (current) drug therapy
CPT/HCPCS: 74176

== ENCOUNTER → 2018-01-15 | Outpatient (CLI) | payer MEDICARE | LOC: M ADAMS 12:05 | DX: S16.1XXA Strain of muscle, fascia and tendon at neck level, initial encounter (principal); X58.XXXA Exposure to other specified factors, initial encounter; Y92.89 Other specified places as the place of occurrence of the external cause; M50.31 Other cervical disc degeneration, high cervical region; M50.321 Other cervical disc degeneration at C4-C5 level; M50.322 Other cervical disc degeneration at C5-C6 level; M50.323 Other cervical disc degeneration at C6-C7 level | CPT/HCPCS: 72050 ==

== ENCOUNTER → 2018-04-01 | Outpatient (REF) | payer MEDICARE ==
[~2018-04-01] MED LIST changes: +ASPI1TAB PO; +CHLO25TA PO; +DIAZ2TAB PO; +ESTR625TA PO; +FLON50SP; +FLUTISP; +MAGN64TASA PO; +MECL-68 PO; +MECL-86 PO; +ONDA4TAB6 PO; -PANT40TA2; +PANT40TA3; +PANT40TA3 PO; +SPIR-10; +VITA100067 PO; +ZOFR4TAB16 PO; +[UNRECOGNIZED DRUG - CODE] PO
[2018-04-01 19:48] LABS: HEMATOCRIT 37.7 % (36.0-47.0); HEMOGLOBIN 12.1 g/dl (12.0-15.5); MEAN CORPUSCULAR HEMOGLOBIN 29.5 pg (27.0-33.0); MEAN CORPUSCULAR HGB CONC 32.1 g/dl (32.0-36.5); PLATELET COUNT, AUTOMATED 265 10^3/uL (150-450); WHITE BLOOD COUNT 5.9 10^3/uL (4.0-10.0)
[2018-04-01 19:53] LABS: ALBUMIN 3.2 GM/DL (3.2-5.2); ALT/SGPT 16 U/L (12-78); BILIRUBIN,TOTAL 0.3 MG/DL (0.2-1.0); BLOOD UREA NITROGEN 25 MG/DL (7-18); CALCIUM LEVEL 8.9 MG/DL (8.8-10.2); CARBON DIOXIDE LEVEL 30 MEQ/L (21-32); CHLORIDE LEVEL 105 MEQ/L (98-107); CHOLESTEROL LEVEL 173 MG/DL (<200); CHOLESTEROL RISK RATIO 6.407 (<5); CREATININE FOR GFR 1.03 MG/DL (0.55-1.30); FERRITIN 8 NG/ML (8-252); GLOMERULAR FILTRATION RATE 56.1 (>39); GLUCOSE, FASTING 124 MG/DL (70-100); HDL CHOLESTEROL 27 MG/DL (>40); IRON (FE) 61 UG/DL (50-170); NON-HDL-C 146 MG/DL; PERCENT SATURATION 14.3 % (13.2-45.0); POTASSIUM SERUM 4.6 MEQ/L (3.5-5.1); SODIUM LEVEL 141 MEQ/L (136-145); TOTAL IRON BINDING CAPACITY 426 UG/DL (250-450); TOTAL PROTEIN 6.8 GM/DL (6.4-8.2); TRIGLYCERIDES LEVEL 890 MG/DL (<150)
[2018-04-01 19:54] LABS: TOTAL 25(OH) VITAMIN D 18.8 NG/ML (30.0-100.0)
== END ==
LOC: M SFHCADAM 15:22
PROVIDERS: ATTEND Family Medicine
DX: D50.0 Iron deficiency anemia secondary to blood loss (chronic) (principal); E04.1 Nontoxic single thyroid nodule; I10 Essential (primary) hypertension; Z87.828 Personal history of other (healed) physical injury and trauma; E55.9 Vitamin D deficiency, unspecified; Z23 Encounter for immunization
CPT/HCPCS: 80053; 80061; 82306; 82728; 83550; 84439; 84443; 85027; 85046; 90670; 90682; G0008; G0009; G0463

== ENCOUNTER → 2018-04-30 | Outpatient (CLI) | payer MEDICARE ==
--- NOTE | 2018-04-30 16:26 | REPMRS ---
Patient History The patient states she has not had a clinical breast exam in over a year. Patient is postmenopausal. No known family history of cancer. Taking hormonal contraceptives for 35 years beginning at age 37. Digital Woman Screen Mammo: April 30, 2018 - Exam #: [id number] Bilateral CC and MLO view(s) were taken. Technologist: Savanah Hernandez Technologist Prior study comparison: June 12, 2016, bilateral digital woman screen mammo, performed at [facility] [employer]. May 02, 2015, bilateral digital woman screen mammo, performed at [facility] [employer] [facility]. April 18, 2014, bilateral digital woman screen mammo, performed at [facility]. FINDINGS: The breast tissue is heterogeneously dense. This may lower the sensitivity of mammography. There are disbursed microcalcifications throughout the dense breast stroma bilaterally unchanged. There is a moderate amount of heterogeneously dense fibroglandular tissue which is fairly symmetric. There is no interval development of dominant mass, architectural distortion, or clustered microcalcification typical of malignancy. There has been no change in the appearance of the mammogram from the prior studies. 3-D tomosynthesis shows no additional findings. Assessment: BI-RADS/ACR category 2 mammogram. Benign finding(s). Recommendation Routine screening mammogram of both breasts in 1 year (for women over age 40). This patient's Lifetime Breast Cancer RIsk is estimated at 2.6 %. This mammogram was interpreted with the aid of an FDA-approved computer-aided dectection system. Electronically Signed By: Krish Moore MD 04/30/18 [id number]
--- NOTE | 2018-05-04 15:32 | DEXA ---
AP SPINE L1 - L4 1.432 1.7 3.5 LT FEMUR TOTAL 0.910 -0.8 0.8 LT NECK 0.945 -0.7 1.1 RT FEMUR TOTAL 1.014 0.1 1.7 RT NECK 1.082 0.3 2.1 TOTAL BODY TOTAL OTHER COMMENTS: Normal bone densitometry of the spine and hips. FOLLOW-UP: Recommendation for the next bone density exam: 5 years. JOSE MANUEL
== END ==
LOC: M WHC 07:15
PROVIDERS: ATTEND Family Medicine
DX: Z12.31 Encounter for screening mammogram for malignant neoplasm of breast (principal); Z13.820 Encounter for screening for osteoporosis; N60.31 Fibrosclerosis of right breast; N60.32 Fibrosclerosis of left breast; R92.0 Mammographic microcalcification found on diagnostic imaging of breast; Z78.0 Asymptomatic menopausal state

== ENCOUNTER → 2018-05-07 | Outpatient (REF) | payer MEDICARE | LOC: M LAB REF 12:30 | PROVIDERS: ATTEND Physician Assistant | DX: J02.9 Acute pharyngitis, unspecified (principal) ==

== ENCOUNTER → 2018-06-10 | Outpatient (CLI) | payer MEDICARE ==
--- NOTE | 2018-06-10 15:05 | REP ---
Clinical: Thyroid nodule. Technique: Real time green scale and color evaluation using linear high frequency transducer. Findings: Isthmus measures 2 mm in width. Right lobe measures 3.9 x 1.3 x 1.5 cm and includes 8.7 x 6.8 x 8.9 cm hypoechoic nonspecific nodule in the anterior mid pole. Left lobe measures 3.6 x 1.0 x 1.1 cm without nodule or cyst. Impression: Solitary hypoechoic nonspecific nodule in the right lobe. Electronically Signed by Gavin Taylor MD 06/10/2018 02:57 P
== END ==
LOC: M RAD 14:15
PROVIDERS: ATTEND Family Medicine
DX: E07.9 Disorder of thyroid, unspecified (principal)

== ENCOUNTER 2018-08-07 16:28 | Emergency (ER) | payer MEDICARE ==
[~2018-08-07] VITALS: Ht 165.1 cm; Wt 56.8 kg
[~2018-08-07 16:28] MED LIST changes: -CHLORPHENIRAMINE PO; -SPIR-10 PO; -[UNRECOGNIZED DRUG - OTHER]
[2018-08-07] MEDS ORDERED: SPIR-10 PO (16:50)
[2018-08-07] MEDS ORDERED: [UNRECOGNIZED DRUG - OTHER] (16:50)
[2018-08-07] MEDS ORDERED: ESTR625TA PO (16:50)
[2018-08-07] MEDS ORDERED: LODI400T PO (16:50)
[2018-08-07] MEDS ORDERED: CHLORPHENIRAMINE PO (16:50)
[2018-08-07 17:24] LABS: BASO # 0.1 10^3/uL (0.0-0.2); BASO % 0.9 % (0.0-1.0); EOS # 0.2 10^3/uL (0.0-0.50); EOS % 3.7 % (0.0-3.0); HEMATOCRIT 37.7 % (36.0-47.0); HEMOGLOBIN 12.6 g/dl (12.0-15.5); LYMPH # 2.2 10^3/uL (1.5-4.5); LYMPH % 33.8 % (24.0-44.0); MEAN CORPUSCULAR HEMOGLOBIN 30.6 pg (27.0-33.0); MEAN CORPUSCULAR HGB CONC 33.4 g/dl (32.0-36.5); MEAN CORPUSCULAR VOLUME 91.5 fl (80.0-96.0); MONO # 0.5 10^3/uL (0.0-0.8); MONO % 7.2 % (0.0-5.0); NEUTROPHILS # 3.5 10^3/uL (1.8-7.7); NEUTROPHILS % 54.1 % (36.0-66.0); PLATELET COUNT, AUTOMATED 250 10^3/uL (150-450); RED BLOOD COUNT 4.12 10^6/uL (4.00-5.40); WHITE BLOOD COUNT 6.5 10^3/uL (4.0-10.0)
[2018-08-07 17:36] LABS: INR 0.92; PROTHROMBIN TIME 12.4 SECONDS (12.1-14.4)
[2018-08-07 17:37] LABS: PARTIAL THROMBOPLASTIN TIME 27.1 SECONDS (25.4-37.6)
[2018-08-07 18:01] LABS: ALBUMIN 3.2 GM/DL (3.2-5.2); ALT/SGPT 20 U/L (12-78); BILIRUBIN,DIRECT < 0.1 MG/DL (0.0-0.2); BILIRUBIN,TOTAL 0.3 MG/DL (0.2-1.0); BLOOD UREA NITROGEN 27 MG/DL (7-18); CALCIUM LEVEL 8.3 MG/DL (8.8-10.2); CARBON DIOXIDE LEVEL 26 MEQ/L (21-32); CHLORIDE LEVEL 105 MEQ/L (98-107); CPK CREATINE PHOSPHOKINASE 76 U/L (26-192); GLOMERULAR FILTRATION RATE 57.9 (>39); GLUCOSE, FASTING 128 MG/DL (70-100); MB/CK RELATIVE INDEX 2.37 (< OR =4); POTASSIUM SERUM 4.5 MEQ/L (3.5-5.1); SODIUM LEVEL 138 MEQ/L (136-145); TOTAL PROTEIN 6.9 GM/DL (6.4-8.2); TROPONIN I < 0.02 NG/ML (< 0.10)
[2018-08-07 18:41] VITALS: BP 144/69
--- NOTE | 2018-08-07 20:30 | ECGEPIP ---
Stationary ECG Study [facility] - ED Test Date: 2018-08-07 Pat Name: VENUS GOLDEN Department: Room: - Gender: F Plastics Production Machine Operator: pmo : 1945 Requested By: PEARL Ricks Order Number: [id number] Reading MD: Sugey Pollock Measurements Intervals [place] Rate: 73 P: 14 MO: 175 QRS: -32 QRSD: 80 T: 62 QT: 407 QTc: 451 Interpretive Statements SINUS RHYTHM POSSIBLE RIGHT VENTRICULAR CONDUCTION DELAY MODERATE VOLTAGE CRITERIA FOR LVH, CONSIDER NORMAL VARIANT INFERIOR MYOCARDIAL INFARCTION, PROBABLY OLD WITH POSTERIOR EXTENSION DECREASED RATE 04/16/17 Electronically Signed On 08-07-2018 20:29:58 EDT by Sugey Pollock
== END 2018-08-07 18:47 | disposition short-term general hospital (02) ==
LOC: M ED 16:28
DX: I77.75 Dissection of other precerebral arteries (principal); I10 Essential (primary) hypertension; K21.9 Gastro-esophageal reflux disease without esophagitis; H83.09 Labyrinthitis, unspecified ear; Z79.82 Long term (current) use of aspirin; Z79.899 Other long term (current) drug therapy; Z88.2 Allergy status to sulfonamides; Z88.8 Allergy status to other drugs, medicaments and biological substances; Z88.5 Allergy status to narcotic agent

== ENCOUNTER → 2018-08-07 | Outpatient (CLI) | payer MEDICARE ==
[~2018-08-07] MED LIST changes: +ASPI-1 PO; -ASPI1TAB PO; -ASPI325T PO; +ASPI81TA26 PO; +CHLORPHENIRAMINE PO; +SPIR-10 PO; +[UNRECOGNIZED DRUG - OTHER]
--- NOTE | 2018-08-07 16:10 | REP ---
MRA BRAIN WITHOUT CONTRAST: HISTORY: Headache. 3D [id number] MR angiography was performed at the level of the [place]. 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 There is no recurrent aneurysm. There is no new aneurysm or arteriovenous malformation. Mild atherosclerotic disease involves the cavernous internal carotid arteries. Mild to moderate atherosclerotic disease involves the posterior cerebral and superior cerebellar arteries. A 10 mm linear focus of decreased signal intensity is present in the basilar artery. This is suspicious for a dissection. The major intracranial vessels are patent. The left vertebral artery is dominant. Impression:1. The patient is status post coiling of the basilar tip aneurysm. There is no recurrent aneurysm.2. There is a 10 mm linear focus of decreased signal intensity in the basilar artery suspicious for a dissection. Results were discussed with Katie Jhaveri at the 03:30 p.m. 02/06/2019 Electronically Signed by Nicholas Hunter MD 08/07/2018 04:26 P
--- NOTE | 2018-08-07 16:24 | REP ---
MR BRAIN WITHOUT CONTRAST: HISTORY: Headache. COMPARISON: CT 04/22/2017. An area of increased signal intensity on T2 weighted images is present in the left temporal lobe. There is dilatation of the overlying cortical sulci. This represents an old infarction. Areas of increased signal intensity on T2 weighted images are present in the periventricular and subcortical white matter. This represents small vessel ischemic disease. The sella turcica is partially empty. There is no intraparenchymal hemorrhage, acute infarct, mass or midline shift. The ventricular system and cortical sulci are dilated consistent with minimal volume loss. There is no extracerebral collection. 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 Mucosal thickening is present in the right maxillary sinus. IMPRESSION: 1. 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 2. Small vessel ischemic disease. 3. Minimal volume loss. Electronically Signed by Nicholas Hunter MD 08/07/2018 04:27 P
== END ==
LOC: M PLARAD 13:31
PROVIDERS: ATTEND Physician Assistant Medical
DX: I69.314 Frontal lobe and executive function deficit following cerebral infarction (principal); S06.5X1D Traumatic subdural hemorrhage with loss of consciousness of 30 minutes or less, subsequent encounter; X58.XXXD Exposure to other specified factors, subsequent encounter; Z86.79 Personal history of other diseases of the circulatory system; I67.82 Cerebral ischemia

== ENCOUNTER → 2018-08-12 | Outpatient (CLI) | payer MEDICARE ==
[~2018-08-12] MED LIST changes: +CHLORPHENIRAMINE PO; +LIDOCAINE 1% MDV 20ML VIAL As Ordered ONE; +SPIR-10 PO; +[UNRECOGNIZED DRUG - OTHER]
--- NOTE | 2018-08-12 16:42 | REP ---
ULTRASOUND-GUIDED RIGHT THYROID BIOPSY The procedure was performed under the direct supervision of Dr. Cardona. The patient has a history of and 8.7 x 6.8 x 8.9 mm hypoechoic nodule in the right anterior mid pole thyroid seen on a previous ultrasound dated 06/10/2018. The risks and benefits of the procedure were explained to the patient and informed consent was obtained. The right thyroid nodule was localized using ultrasound guidance. The skin was prepped and draped in a sterile fashion. 1% lidocaine was used as a local anesthetic. Using ultrasound guidance four fine-needle aspirations were obtained using 25 gauge needles. The patient tolerated the procedure well and there were no immediate complications. After the appropriate amount of monitored convalescence the patient was discharged from the department. Reviewed by ALBINA Tidwell 08/12/2018 04:25 P Electronically Signed by Jose De Jesus Cardona MD 08/12/2018 04:32 P
== END ==
LOC: M RADPRO 13:32
PROVIDERS: ATTEND Specialist
DX: E04.1 Nontoxic single thyroid nodule (principal); Z79.82 Long term (current) use of aspirin; Z79.899 Other long term (current) drug therapy; Z88.0 Allergy status to penicillin; Z88.2 Allergy status to sulfonamides; Z88.5 Allergy status to narcotic agent; Z88.8 Allergy status to other drugs, medicaments and biological substances

== ENCOUNTER → 2018-09-04 | Outpatient (CLI) | payer MEDICARE ==
[~2018-09-04] MED LIST changes: +ACEB200C13 PO; +ACET-683 PO; +AMOX875T2; +DITR5TAB PO; +FLUC10TA PO; +IBUP-1093 PO; +KETO10TAB PO; +LEVA750T7 PO; -LIDOCAINE 1% MDV 20ML VIAL As Ordered ONE; +OXYB5TAB10 PO; +RANI1TAB6 PO
--- NOTE | 2018-09-04 10:39 | REP ---
KUB, ONE VIEW: HISTORY: Kidney stones. A small amount of air is present in the intestine. There are no air fluid levels or dilated loops of intestine. There is no pneumoperitoneum. Calcifications are present overlying the kidneys consistent with nephrolithiasis. A left ureteral stent is present. There is scoliosis of the lumbar spine convex to the left. IMPRESSION: 1. Nonspecific bowel gas pattern. 2. Bilateral nephrolithiasis. Electronically Signed by Nicholas Hunter MD 09/04/2018 10:41 A
== END ==
LOC: M SMT 09:54
PROVIDERS: ATTEND Urology
DX: N20.0 Calculus of kidney (principal)
CPT/HCPCS: 74018; G0463

== ENCOUNTER 2018-09-17 01:50 | Day surgery (SDC) | payer MEDICARE ==
[~2018-09-17] VITALS: Ht 165.1 cm; Wt 56.8 kg
[~2018-09-17 01:50] MED LIST changes: -AMOX875T2; -DITR5TAB PO; -FLUC10TA PO; -IBUP-1093 PO; -KETO10TAB PO; -LEVA750T7 PO; -OXYB5TAB10 PO; -RANI1TAB6 PO
[2018-09-17] MEDS ORDERED: AMOX875T2 (01:56)
[2018-09-17] MEDS ORDERED: fentaNYL 100 MCG/2 ML INJECTION (J3010) IV ONE (02:15)
[2018-09-17] MEDS ORDERED: KETOROLAC 30 MG/ML VIAL (J1885) IV ONE (02:15)
[2018-09-17] MEDS ORDERED: ONDANSETRON 4MG/2ML VIAL (J2405) IV ONE ×3 (02:15→08:00)
[2018-09-17 02:34] LABS: BASO # 0.1 10^3/uL (0.0-0.2); BASO % 0.3 % (0.0-1.0); EOS # 0.2 10^3/uL (0.0-0.50); EOS % 1.3 % (0.0-3.0); HEMATOCRIT 37.1 % (36.0-47.0); HEMOGLOBIN 12.5 g/dl (12.0-15.5); LYMPH # 1.1 10^3/uL (1.5-4.5); LYMPH % 6.1 % (24.0-44.0); MEAN CORPUSCULAR HEMOGLOBIN 31.3 pg (27.0-33.0); MEAN CORPUSCULAR HGB CONC 33.7 g/dl (32.0-36.5); MONO # 1.3 10^3/uL (0.0-0.8); MONO % 7.1 % (0.0-5.0); NEUTROPHILS # 15.2 10^3/uL (1.8-7.7); NEUTROPHILS % 84.8 % (36.0-66.0); PLATELET COUNT, AUTOMATED 235 10^3/uL (150-450); RED BLOOD COUNT 3.99 10^6/uL (4.00-5.40); WHITE BLOOD COUNT 17.9 10^3/uL (4.0-10.0)
[2018-09-17 03:05] LABS: CALCIUM LEVEL 9.2 MG/DL (8.8-10.2); CREATININE FOR GFR 1.59 MG/DL (0.55-1.30); GLOMERULAR FILTRATION RATE 33.9 (>39); POTASSIUM SERUM 4.6 MEQ/L (3.5-5.1)
--- NOTE | 2018-09-17 04:01 | REPVR ---
EXAM: CT Abdomen and Pelvis Without Contrast EXAM DATE/TIME: 09/17/2018 2:11 AM CLINICAL HISTORY: 73 years old, female; Abdominal pain; Flank; Left; Patient HX: Recent stent removal ureteral; Additional info: Left renal colic TECHNIQUE: Imaging protocol: Axial computed tomography images of the abdomen and pelvis without contrast. Coronal and sagittal reformatted images were created and reviewed. Radiation optimization: All CT scans at this facility use at least one of these dose optimization techniques: automated exposure control; mA and/or kV adjustment per patient size (includes targeted exams where dose is matched to clinical indication); or iterative reconstruction. COMPARISON: CT ABD PELVIS W/O CONTRAST 09/01/2018 4:56 PM FINDINGS: Lungs: Atelectatic changes identified at the lung bases, left side greater than right. ABDOMEN: Liver: Normal as visualized on these noncontrast images. No mass. Gallbladder and bile ducts: No calcified stones. No ductal dilation. Pancreas: Normal contour. No ductal dilation. Spleen: Normal as visualized on these noncontrast images. No splenomegaly. Adrenals: No mass. Kidneys and ureters: There is bilateral nephrolithiasis. Stable hydronephrosis of the left kidney is identified, with a 7-8 mm obstructing calculus within the proximal left ureter. A small 3 mm obstructing calculus is also identified within the proximal left ureter. An additional tiny calculus is seen within the distal left ureter. There is a progression in the number of obstructing calculi compared to the prior study. A tiny calcification is identified adjacent to the distal left ureter. An additional calculus is difficult to exclude. Left perinephric stranding is again identified, and pyelonephritis cannot be excluded. No hydronephrosis of the right kidney. A few hypodense suggested cysts are again identified at the upper pole of the right kidney, the largest measuring 2.2 cm in diameter. Stomach and bowel: Colonic diverticula are identified. Mild stranding is identified adjacent to the descending colon and proximal sigmoid colon, which can be due to an extension of the perinephric stranding, although diverticulitis is also considered. Evaluation of bowel is limited by the absence of oral contrast. Mild gaseous and fecal distention of the rectum. Appendix: There appendix is not visualized. PELVIS: Bladder: Unremarkable as visualized. Reproductive: The uterus is absent. ABDOMEN and PELVIS: Intraperitoneal space: No free air. Bones/joints: There is levoscoliosis of the lumbar and lower thoracic spine. Pectus excavatum visualized. Hypertrophic degenerative changes are noted within the spine. Soft tissues: Unremarkable. Vasculature: There is atherosclerotic calcification of the abdominal aorta. Lymph nodes: No enlarged lymph nodes. IMPRESSION: 1. There is bilateral nephrolithiasis. Stable hydronephrosis of the left kidney is identified, with a 7-8 mm obstructing calculus within the proximal left ureter. A small 3 mm obstructing calculus is also identified within the proximal left ureter. An additional tiny calculus is seen within the distal left ureter. There is a progression in the number of obstructing calculi compared to the prior study. 2. Left perinephric stranding is again identified, and pyelonephritis cannot be excluded. 3. Colonic diverticula are identified. Mild stranding is identified adjacent to the descending colon and proximal sigmoid colon, which can be due to an extension of the perinephric stranding, although diverticulitis is also considered. 4. A few hypodense suggested cysts are again identified at the upper pole of the right kidney, the largest measuring 2.2 cm in diameter. 5. Additional findings described above. Electronically signed by: Reynaldo Brock On 09/17/2018 04:00:43 AM
[2018-09-17] MEDS ORDERED: AUGM875T28 PO (04:55)
[2018-09-17] MEDS ORDERED: RANI1TAB6 PO (04:55)
[2018-09-17] MEDS ORDERED: IBUP-1093 PO (04:55)
[2018-09-17] MEDS ORDERED: KETO10TAB PO (04:55)
[2018-09-17] MEDS ORDERED: NS 1,000 ML IV ONE (07:45)
[2018-09-17] MEDS ORDERED: LIDOCAINE 2% INJ 100 MG/5 ML SDV (FOR ANES.) As Ordered ONE (09:35)
[2018-09-17] MEDS ORDERED: ONDANSETRON 4MG/2ML VIAL (J2405) As Ordered ONE (09:35)
[2018-09-17] MEDS ORDERED: dexameTHASONE 4 MG/ML 1ML VIAL (J1100) As Ordered ONE (09:35)
[2018-09-17] MEDS ORDERED: PROPOFOL 200 MG/20 ML VIAL As Ordered ONE (09:35)
[2018-09-17] MEDS ORDERED: MIDAZOLAM INJ 2 MG/2 ML VIAL (J2250) As Ordered ONE (09:36)
[2018-09-17] MEDS ORDERED: CONRAY-60 60% 50ML VIAL (Q9961) As Ordered ONE (09:36)
[2018-09-17] MEDS ORDERED: fentaNYL 100 MCG/2 ML INJECTION (J3010) As Ordered ONE (09:36)
--- NOTE | 2018-09-17 09:47 | SMCUROLCON ---
Urology Consultation General Date of Consultation 09/17/18 Reason For Consultation This patient is seen for Kidney Stone. History of Present Illness This is a 73 y/o M w/ a PMH significant for HTN and nephrolithiasis, presenting to the ER w/ severe left flank pain. The patient notes that she started having severe left flank pain and n/v yesterday morning. Of note, she underwent cystoscopy, left ureteroscopy w/ laser lithotripsy, and left ureteral stent placement on 09/02/18 and then left ureteral stent removal 2 days ago. She had been scheduled to undergo left ESWL today but she cancelled this and requested that her stent be taken out a few days ago. She notes having dysuria since the stent was in place but denies hematuria. Her CT A/P in the ER was notable for an obstructing 8mm proximal left ureteral stone as well as a few additional stone fragments in the left ureter. Her WBC is elevated to 17.9, and her Cr is 1.6 from a baseline of 1.3. Her UA showed 2 WBCs/hpf. Past Medical History Medical History see HPI Surgical Hstory hysterectomy, ureteroscopy, right knee replacement Medications Current Medications Current Medications Home Med (Med Rec Complete!) ASDIRECTED XX ; Start 09/17/18 at 05:00; Stop 09/17/18 at 05:00; Status DC Allergies Allergies: Coded Allergies: Sulfa (Sulfonamide Antibiotics) (Verified Allergy, Unknown, SWOLLEN TONGUE, 09/17/18) cefaclor (Verified Allergy, Unknown, 09/17/18) cefuroxime (Verified Allergy, Unknown, HIVES, 09/17/18) ergocalciferol (vitamin D2) (Verified Allergy, Unknown, FACIAL SWELLING, 09/17/18) erythromycin base (Verified Allergy, Unknown, STOMACH ISSUES, 09/17/18) minocycline (Verified Allergy, Unknown, DIZZINESS, 09/17/18) montelukast (Verified Allergy, Unknown, INCREASED HEART RATE , 09/17/18) morphine (Verified Allergy, Unknown, CAUSED TROUBLE WAKING UP AFTER SURGERY, 09/17/18) tramadol (Verified Allergy, Unknown, INCREASED HEART RATE, 09/17/18) ubidecarenone (Verified Allergy, Unknown, 09/17/18) Review of Systems Constitutional: Denies: Fever, Chills, Sweats, Weakness, Malaise, Other Pulmonary: Denies: Dyspnea, Cough, Pleuritic Chest Pain, Other Symptoms Cardiovascular: Denies Chest Pain, Denies Palpitations, Denies Orthopnea, Denies Paroxysmal Noc. Dyspnea, Denies Edema, Denies Lt Headedness, Denies Other Symptoms Gastrointestinal: Reports: Nausea, Vomiting, Abdominal Pain (LLQ) Genitourinary: Reports: Dysuria; Denies: Hematuria Musculoskeletal: Reports: Back Pain (left flank) Neurological: Denies: Weakness, Numbness, Incoordination, Change in Speech Psych: Reports: Mood Normal; Denies: Anxiety, Depression Physical Examination General Exam: Alert, Cooperative Chest Exam: Normal air movement Heart Exam: Rate Normal, Regular Rhythm Abdomen Exam: Soft, Tenderness (LLQ) Skin Exam: Nl turgor and temperature Neuro Exam: Normal Speech Psych Exam: Mental status NL, Mood NL Vital Signs/I&O Vital Signs Date Time Temp Pulse Resp B/P (MAP) Pulse Ox O2 Delivery O2 Flow Rate FiO2 09/17/18 04:17 89 20 133/59 (83) 98 Room Air 09/17/18 01:50 97.1 Laboratory Data 24H Labs Laboratory Tests 2 09/17/18 02:19: Immature Granulocyte % (Auto) 0.4, White Blood Count 17.9H, Red Blood Count 3.99L, Hemoglobin 12.5, Hematocrit 37.1, Mean Corpuscular Volume 93.0, Mean Corpuscular Hemoglobin 31.3, Mean Corpuscular Hemoglobin Concent 33.7, Red Cell Distribution Width 12.7, Platelet Count 235, Neutrophils (%) (Auto) 84.8H, Lymphocytes (%) (Auto) 6.1L, Monocytes (%) (Auto) 7.1H, Eosinophils (%) (Auto) 1.3, Basophils (%) (Auto) 0.3, Neutrophils # (Auto) 15.2H, Lymphocytes # (Auto) 1.1L, Monocytes # (Auto) 1.3H, Eosinophils # (Auto) 0.2, Basophils # (Auto) 0.1, Nucleated Red Blood Cells % (auto) 0.0, Anion Gap 7L, Glomerular Filtration Rate 33.9L, Blood Urea Nitrogen 25H, Creatinine 1.59H, Sodium Level 139, Potassium Level 4.6, Chloride Level 103, Carbon Dioxide Level 29, Calcium Level 9.2 09/17/18 03:19: Urine Color STRAW, Urine Appearance CLEAR, Urine pH 5.0, Urine Specific [place] 1.012, Urine Protein NEGATIVE, Urine Glucose (UA) NEGATIVE, Urine Ketones NEGATIVE, Urine Blood NEGATIVE, Urine Nitrite NEGATIVE, Urine Bilirubin NEGATIVE, Urine Urobilinogen 0.2, Urine Leukocyte Esterase NEGATIVE, Urine WBC (Auto) 2, Urine RBC (Auto) 3, Urine Hyaline Casts (Auto) 0, Urine Bacteria (Auto) NEGATIVE, Urine Squamous Epithelial Cells 0, Urine Mucus (Auto) SMALL, Urine Sperm (Auto) CBC/BMP Laboratory Tests 09/17/18 02:19 Red Blood Count 3.99 L, Mean Corpuscular Volume 93.0, Mean Corpuscular Hemoglobin 31.3, Mean Corpuscular Hemoglobin Concent 33.7, Red Cell Distribution Width 12.7, Neutrophils (%) (Auto) 84.8 H, Lymphocytes (%) (Auto) 6.1 L, Monocytes (%) (Auto) 7.1 H, Eosinophils (%) (Auto) 1.3, Basophils (%) (Auto) 0.3, Neutrophils # (Auto) 15.2 H, Lymphocytes # (Auto) 1.1 L, Monocytes # (Auto) 1.3 H, Eosinophils # (Auto) 0.2, Basophils # (Auto) 0.1, Calcium Level 9.2 Assessment This is a 73 y/o F w/ left renal colic due to an obstructing 8mm left proximal ureteral stone. I recommended that we take her to the OR today for cystoscopy, left ureteroscopy w/ laser lithotripsy, and left ureteral stent placement to clear out her remaining stones on the left. After a discussion of the risks and benefits informed consent was signed. Plan - informed consent signed for cystoscopy, left ureteroscopy w/ laser lithotripsy, and left ureteral stent placement - ancef 2g IV preop - NPO - plan OR now GREY BUCHANAN MD Sep 17, 2018 08:43
[2018-09-17] MEDS ORDERED: PROMETHAZINE INJ 25 MG/ML VIAL (J2550) As Ordered ONE (09:53)
[2018-09-17] MEDS ORDERED: LevoFLOXacin IV 500 MG in APPROPRIATE DILUENT 1 EA IV ONE (10:00)
[2018-09-17] MEDS ORDERED: ROCURONIUM BROMIDE 50 MG/5 ML VIAL As Ordered ONE (10:01)
[2018-09-17] MEDS ORDERED: LevoFLOXacin(LEVAQUIN)500 MG/100 ML BAG (J1956) As Ordered ONE (10:02)
[2018-09-17] MEDS ORDERED: ACETAMINOPHEN 1000MG 100ML IV BTL (OFIRMEV) (J0131 PER 10MG) As Ordered ONE (10:26)
[2018-09-17] MEDS ORDERED: PHENYLephrine HCL 500 MCG/5 ML (100MCG/ML) SYRINGE (J2370) As Ordered ONE (10:32)
[2018-09-17] MEDS ORDERED: GLYCOPYRROLATE INJ 0.2 MG/ML 2 ML VIAL As Ordered ONE (10:33)
[2018-09-17] MEDS ORDERED: NEOSTIGMINE 10 MG/10 ML VIAL (J2710) As Ordered ONE (10:33)
[2018-09-17] MEDS ORDERED: ePHEDrine SULFATE 25 MG/5 ML(5MG/ML) SYRINGE As Ordered ONE (10:51)
--- NOTE | 2018-09-17 11:16 | RO ---
DATE OF PROCEDURE: 09/17/2018 PREPROCEDURE DIAGNOSIS: Left kidney and ureteral stones. POSTPROCEDURE DIAGNOSIS: Left kidney and ureteral stones. PROCEDURE: Cystoscopy, left ureteroscopy with laser lithotripsy and basket extraction of stones, left retrograde pyelogram with intraoperative interpretation of images, left ureteral stent placement. SURGEON: Dr. Gianfranco Johnston DUST COLLECTOR OPERATOR: None. ANESTHESIA: General. OPERATIVE INDICATIONS: This is a 73-year-old female who underwent a cystoscopy and left ureteroscopy and laser lithotripsy and stent placement two weeks ago. Of note, she had a residual approximately 1 cm lower pole stone which could not be reached at the time and the plan was to do an extracorporeal shockwave lithotripsy. The patient ultimately decided not to do that and wanted her stent removed and that was removed a few days ago. She presented to the emergency room earlier this morning with severe left flank pain and CT was notable for the 1 cm stone now at the left ureteropelvic junction causing obstruction. She was brought to the operating room for treatment. DESCRIPTION OF PROCEDURE: The patient was brought to the operating room where general anesthesia was induced. Prophylactic antibiotics were infused. She was then placed in dorsal lithotomy position and prepped and draped in the usual sterile fashion. A rigid cystoscope was inserted into the urethral meatus and advanced to the bladder. When inside the bladder, I then advanced a guidewire up the left collecting system. I then went up the left collecting system with a short semi-rigid ureteroscope and within the ureter two stones were seen, each measuring about 3 mm in size. Both were grasped with a basket and removed. I then removed the short semi-rigid ureteroscope and then advanced the ureteral access sheath up the left collecting system. I went up the access sheath with a flexible ureteroscope and then the kidney thoroughly. The patient had several smaller stone fragments within the left kidney. The 1 cm stone was also seen. This was then fragmented into smaller pieces using a 272 micron laser fiber. All the fragments were then removed using a basket. Once done basketing stones, the only thing remaining were very tiny stone debris that should easily pass. At this point, a retrograde pyelogram was performed and was notable for moderate left hydronephrosis with no extravasation. I then withdrew the ureteroscope along with the access sheath and no additional stones were seen within the ureter. I then utilized the wire to advance a 6 [place] x 22-32 cm JJ ureteral stent up into the left collecting system. The wire was then removed and there were adequate curls of the stent in the left renal pelvis and in the bladder. The bladder was emptied of all fluid and this marked the conclusion of the procedure. The patient was then taken out of the dorsal lithotomy position, awakened from anesthesia and transported to the recovery room in stable condition. Estimated blood loss: 5 mL. Complications: None. Specimen: Kidney stone fragments. Plan: The patient will followup in the clinic in a week or two for stent removal.
--- NOTE | 2018-09-17 11:28 | REP ---
RETROGRADE PYELOGRAM: HISTORY: Stent placement. Three radiographs were obtained with a C-arm. A small amount of contrast material is present in the left renal collecting system. The patient is status post left ureteral stent placement. Fluoroscopic time: 7 seconds. IMPRESSION: Retrograde pyelogram as described above. Electronically Signed by Nicholas Hunter MD 09/17/2018 11:34 A
[2018-09-17] MEDS ORDERED: oxyBUTYnin 5 MG TAB PO PRN (11:30)
[2018-09-17] MEDS ORDERED: fentaNYL 100 MCG/2 ML INJECTION (J3010) IV PRN (11:30)
[2018-09-17] MEDS ORDERED: ONDANSETRON 4MG/2ML VIAL (J2405) IV PRN (11:30)
[2018-09-17] MEDS ORDERED: NS 1,000 ML IV SCH (11:30)
[2018-09-17] MEDS ORDERED: METOCLOPRAMIDE INJ 10MG/2ML VIAL (J2765) IV PRN (11:30)
[2018-09-17 15:10] VITALS: BP 112/54
[2018-09-17] MEDS ORDERED: DITR5TAB PO (22:30)
[2018-09-17] MEDS ORDERED: ACET-683 PO (22:34)
[2018-09-18] MEDS ORDERED: OXYB5TAB10 PO (04:51)
[2018-09-18] MEDS ORDERED: DIAZ2TAB PO (07:18)
== END 2018-09-17 16:27 | disposition home or self-care (01) ==
LOC: M ED 01:50 → M SDC 08:25
PROVIDERS: ATTEND Urology
DX: N20.0 Calculus of kidney (principal)

== ENCOUNTER 2018-09-17 22:21 | Inpatient (IN) | payer MEDICARE ==
[~2018-09-17] VITALS: Ht 165.1 cm; Wt 61.9 kg
[~2018-09-17 22:21] MED LIST changes: +AMOX875T2; +IBUP-1093 PO; +KETO10TAB PO; +RANI1TAB6 PO
[2018-09-17] MEDS ORDERED: DITR5TAB PO (22:30)
[2018-09-17] MEDS ORDERED: ACET-683 PO (22:34)
[2018-09-17 23:28] LABS: BASO % 0.2 % (0.0-1.0); HEMATOCRIT 32.7 % (36.0-47.0); LYMPH # 0.3 10^3/uL (1.5-4.5); LYMPH % 2.1 % (24.0-44.0); MEAN CORPUSCULAR HEMOGLOBIN 30.9 pg (27.0-33.0); MEAN CORPUSCULAR HGB CONC 33.6 g/dl (32.0-36.5); MEAN CORPUSCULAR VOLUME 91.9 fl (80.0-96.0); MONO # 0.4 10^3/uL (0.0-0.8); MONO % 3.5 % (0.0-5.0); NEUTROPHILS # 11.9 10^3/uL (1.8-7.7); NEUTROPHILS % 93.7 % (36.0-66.0); PLATELET COUNT, AUTOMATED 179 10^3/uL (150-450); RED BLOOD COUNT 3.56 10^6/uL (4.00-5.40); WHITE BLOOD COUNT 12.7 10^3/uL (4.0-10.0)
[2018-09-17 23:50] LABS: ALBUMIN 2.6 GM/DL (3.2-5.2); BILIRUBIN,DIRECT 0.1 MG/DL (0.0-0.2); BILIRUBIN,TOTAL 0.4 MG/DL (0.2-1.0); CALCIUM LEVEL 7.9 MG/DL (8.8-10.2); CREATININE FOR GFR 1.91 MG/DL (0.55-1.30); GLOMERULAR FILTRATION RATE 27.4 (>39); POTASSIUM SERUM 4.2 MEQ/L (3.5-5.1); TOTAL PROTEIN 6.2 GM/DL (6.4-8.2)
[2018-09-18] MEDS ORDERED: NS 1,000 ML IV ONE (00:15)
--- NOTE | 2018-09-18 04:02 | REPVR ---
EXAM: XR Chest, 2 Views EXAM DATE/TIME: 09/18/2018 2:32 AM CLINICAL HISTORY: 73 years old, female; Signs and symptoms; Fever TECHNIQUE: Imaging protocol: XR of the chest, 2 views. COMPARISON: CR Chest, 2 view PA, Lat 04/16/2017 11:02 PM FINDINGS: Lungs: Bilateral lower lung opacities a right infrahilar midlung subsegmental atelectasis. A component of retrocardiac left lower lung subsegmental atelectasis an additional concern for pneumonic infiltrate or especially on the left. Pleural space: Unremarkable. No pleural effusion. No pneumothorax. Heart/Mediastinum: Stable heart size. Bones/joints: Lower thoracic curvature left concavity. IMPRESSION: Bilateral lower lung opacities concerning for pneumonic infiltrates greater on the left with additional subsegmental atelectasis retrocardiac left lower lung and right midlung. Electronically signed by: Katherine Houser On 09/18/2018 04:02:09 AM
[2018-09-18] MEDS: NS 1,000 ML IV SCH ×3 (04:26→18:42)
[2018-09-18] MEDS ORDERED: ACETAMINOPHEN TAB 650MG DOSE (2X325MG) PO ONE (04:30)
[2018-09-18] MEDS ORDERED: LevoFLOXacin IV 500 MG in APPROPRIATE DILUENT 1 EA IV ONE (04:30)
[2018-09-18] MEDS ORDERED: OXYB5TAB10 PO (04:51)
[2018-09-18] MEDS ORDERED: ACETAMINOPHEN TAB 650MG DOSE (2X325MG) PO PRN (06:00)
[2018-09-18] MEDS ORDERED: ONDANSETRON 4MG/2ML VIAL (J2405) IV PRN (06:15)
--- NOTE | 2018-09-18 06:15 | HPEPDOC ---
[facility] Medical History & Physical Date of Admission Sep 18, 2018 Date of Service: Sep 18, 2018 History and Physical CHIEF COMPLAINT: fever HISTORY OF PRESENT ILLNESS: Patient is 73-year-old female with past medical history of recurrent nephrolithiasis, hypertension, atrial fibrillation status post ablation, basal artery aneurysm s/p repair and subdural hematoma presented to the ER with complaints of fever and generalized malaise. She has had multiple urologic interventions in the past 2 weeks for kidney stones including most recently as yesterday lipthotripsy with Dr. Johnston. She reported some L. flank and generalized unwell. Workup in ER showed evidence of lower lobe infiltrate/PNA. Reports associated fevers but otherwise no other specific complaints. PAST MEDICAL HISTORY: Refer to HPI PAST SURGICAL HISTORY: Basal artery aneurysm repair cardiac Ablation SOCIAL HISTORY: Denies tobacco, alcohol or illicit drug use. FAMILY HISTORY: Father had kidney stones, CVA and Afib mother had dementia ALLERGIES: Please see below. REVIEW OF SYSTEMS: 10 point review of system negative except as stated in HPI HOME MEDICATIONS: Please see below. PHYSICAL EXAMINATION: General: Mild distress and generalized weakness Eyes: Normal sclera, EOMI, ALANNA HENT: Atraumatic, neck supple, moist mucous membranes Cardiovascular: Normal rate, normal rhythm. No murmurs appreciated. Pulmonary: Clear to auscultation b/l, no wheezing GI: Soft, nondistended. L. sided flank/CVA tenderness. Skin: Warm and dry Neuro: CN grossly intact. No focal deficits. Strengths equal b/l. Psych: oriented x 3 LABORATORY DATA: See below. IMAGING: CXR- IMPRESSION: Bilateral lower lung opacities concerning for pneumonic infiltrates greater on the left with additional subsegmental atelectasis retrocardiac left lower lung and right midlung. MICROBIOLOGY: Please see below. ASSESSMENT AND PLAN: 1. b/l CAP - febrile with elevated LA 2.5 and leukocytosis. - Started on Levaquin. Patient with multi drug allergies. - Gentle IVF hydration. 2. nephrolithiasis - With recent stent placement and procedures. - No urinary symptoms but persistent flank pain from stones. - Hold on urology consult for now but consider bringing on board with patient develop urinary symptoms. 3. HTN - Resume home meds. - Monitor BP. 4. Afib - no documented AC noted? - Resume home meds once reconciled. DVT ppx: HSQ Code status: Full code Vital Signs Vital Signs Date Time Temp Pulse Resp B/P (MAP) Pulse Ox O2 Delivery O2 Flow Rate FiO2 09/18/18 05:00 102 107/58 (74) 96 09/18/18 04:30 18 Room Air 09/18/18 04:14 101.7 Laboratory Data Labs 24H Laboratory Tests 2 09/17/18 23:14: Urine Color YELLOW, Urine Appearance HAZY, Urine pH 5.0, Urine Specific [place] 1.010, Urine Protein 2+H, Urine Glucose (UA) NEGATIVE, Urine Ketones NEGATIVE, Urine Blood 3+H, Urine Nitrite NEGATIVE, Urine Bilirubin NEGATIVE, Urine Urobilinogen 0.2, Urine Leukocyte Esterase 2+H, Urine WBC (Auto) 96H, Urine RBC (Auto) TNTCH, Urine Hyaline Casts (Auto) 0, Urine Bacteria (Auto) NEGATIVE, Urine Squamous Epithelial Cells 0, Urine Mucus (Auto) SMALL, Urine Yeast-Like Cells (Auto) SMALLH, Urine Sperm (Auto) 09/17/18 23:15: Immature Granulocyte % (Auto) 0.5, White Blood Count 12.7H, Red Blood Count 3.56L, Hemoglobin 11.0L, Hematocrit 32.7L, Mean Corpuscular Volume 91.9, Mean Corpuscular Hemoglobin 30.9, Mean Corpuscular Hemoglobin Concent 33.6, Red Cell Distribution Width 13.1, Platelet Count 179, Neutrophils (%) (Auto) 93.7H, Lymphocytes (%) (Auto) 2.1L, Monocytes (%) (Auto) 3.5, Eosinophils (%) (Auto) 0.0, Basophils (%) (Auto) 0.2, Neutrophils # (Auto) 11.9H, Lymphocytes # (Auto) 0.3L, Monocytes # (Auto) 0.4, Eosinophils # (Auto) 0.0, Basophils # (Auto) 0.0, Nucleated Red Blood Cells % (auto) 0.0, Anion Gap 11, Glomerular Filtration Rate 27.4L, Lactic Acid Level 2.5*H, Calcium Level 7.9L, Aspartate Amino Transf (AST/SGOT) 20, Alanine Aminotransferase (ALT/SGPT) 16, Alkaline Phosphatase 64, Total Bilirubin 0.4, Direct Bilirubin 0.1, Total Protein 6.2L, Albumin 2.6L, Albumin/Globulin Ratio 0.72L, Lipase 49L CBC/BMP Laboratory Tests 09/17/18 23:15 Red Blood Count 3.56 L, Mean Corpuscular Volume 91.9, Mean Corpuscular Hemoglobin 30.9, Mean Corpuscular Hemoglobin Concent 33.6, Red Cell Distribution Width 13.1, Neutrophils (%) (Auto) 93.7 H, Lymphocytes (%) (Auto) 2.1 L, Monocytes (%) (Auto) 3.5, Eosinophils (%) (Auto) 0.0, Basophils (%) (Auto) 0.2, Neutrophils # (Auto) 11.9 H, Lymphocytes # (Auto) 0.3 L, Monocytes # (Auto) 0.4, Eosinophils # (Auto) 0.0, Basophils # (Auto) 0.0 Microbiology Microbiology 09/17/18 Blood Culture, Received Pending 09/17/18 Blood Culture, Received Pending 09/17/18 Urine Culture, Received Pending Home Medications Scheduled Acebutolol HCl (Acebutolol HCl) 200 Mg Capsule, 200 MG PO QHS Amoxicillin/Potassium Clav (Augmentin 875-125 Tablet) 1 Each Tablet, 875 MG PO BID Aspirin (Aspirin EC) 81 Mg Tab, 81 MG PO DAILY Chlorpheniramine Maleate (Chlor-Trimeton) 4 Mg Tablet, 4 MG PO QHS Conjugated Estrogens (Premarin) 0.625 Mg Tablet, 0.625 MG PO QHS Etodolac (Lodine) 400 Mg Tablet, 400 MG PO QHS Fluticasone Propionate (Fluticasone Propionate) 50 Mcg/Act Spr, 2 SPRAYS NA DAILY Oxybutynin Chloride (Oxybutynin Chloride) 5 Mg Tablet, 5 MG PO TID Pantoprazole Sodium (Pantoprazole Sodium) 40 Mg Tab, 40 MG PO DAILY Ranitidine HCl (Ranitidine HCl) 150 Mg Tablet, 1 TAB PO QHS Spironolactone (Spironolactone) 25 Mg Tablet, 12.5 MG PO DAILY Scheduled PRN Acetaminophen (Acetaminophen) 500 Mg Tablet, 1,000 MG PO Q6H PRN for HEADACHE OR PAIN Ibuprofen (Ibuprofen) 200 Mg Tablet, 200 MG PO Q6H PRN for PAIN Ketorolac Tromethamine (Ketorolac Tromethamine) 10 Mg Tablet, 10 MG PO Q6H PRN for PAIN Allergies Coded Allergies: Sulfa (Sulfonamide Antibiotics) (Verified Allergy, Unknown, SWOLLEN TONGUE, 09/17/18) cefaclor (Verified Allergy, Unknown, 09/17/18) cefuroxime (Verified Allergy, Unknown, HIVES, 09/17/18) ergocalciferol (vitamin D2) (Verified Allergy, Unknown, FACIAL SWELLING, 09/17/18) erythromycin base (Verified Allergy, Unknown, STOMACH ISSUES, 09/17/18) minocycline (Verified Allergy, Unknown, DIZZINESS, 09/17/18) montelukast (Verified Allergy, Unknown, INCREASED HEART RATE , 09/17/18) morphine (Verified Allergy, Unknown, CAUSED TROUBLE WAKING UP AFTER SURGERY, 09/17/18) tramadol (Verified Allergy, Unknown, INCREASED HEART RATE, 09/17/18) ubidecarenone (Verified Allergy, Unknown, 09/17/18) A-FIB/CHADSVASC A-FIB History Current/History of A-Fib/PAF?: Yes Current PO Anticoag Therapy: No MARSHA MORENO MD Sep 18, 2018 06:15
[2018-09-18] MEDS: HEPARIN SOD (PORCINE) 5000 UNITS/ML VIAL SC SCH ×3 (06:30→21:43)
[2018-09-18] MEDS ORDERED: DIAZ2TAB PO (07:18)
[2018-09-18 07:57] LABS: HEMATOCRIT 29.3 % (36.0-47.0); HEMOGLOBIN 9.9 g/dl (12.0-15.5); MEAN CORPUSCULAR HEMOGLOBIN 31.5 pg (27.0-33.0); MEAN CORPUSCULAR HGB CONC 33.8 g/dl (32.0-36.5); MEAN CORPUSCULAR VOLUME 93.3 fl (80.0-96.0); PLATELET COUNT, AUTOMATED 151 10^3/uL (150-450); RED BLOOD COUNT 3.14 10^6/uL (4.00-5.40); WHITE BLOOD COUNT 7.7 10^3/uL (4.0-10.0)
[2018-09-18 08:05] LABS: CALCIUM LEVEL 7.3 MG/DL (8.8-10.2); CREATININE FOR GFR 1.52 MG/DL (0.55-1.30); GLOMERULAR FILTRATION RATE 35.7 (>39); POTASSIUM SERUM 4.1 MEQ/L (3.5-5.1)
[2018-09-18] MEDS: oxyBUTYnin 5 MG TAB PO SCH ×3 (09:00→20:06)
[2018-09-18] MEDS: SPIRONOLACTONE 12.5MG PER 1/2 TABLET PO SCH (09:24)
[2018-09-18] MEDS: PANTOPRAZOLE 40MG TAB (PROTONIX) PO SCH (09:25)
[2018-09-18] MEDS: METOPROLOL TART 50 MG TAB PO SCH ×2 (09:26→20:06)
[2018-09-18] MEDS: FLUTICASONE PROP 0.05% NASAL SPRAY 16 GM (FLONASE) SCH (09:27)
[2018-09-18] MEDS: ASPIRIN 81 MG ENTERIC TAB PO SCH (09:27)
--- NOTE | 2018-09-18 11:34 | IPNPDOC ---
Subjective Date Seen The patient was seen on 09/18/18. Subjective Chief Complaint/HPI Patient lying on stretcher as I entered the room. She reports to be tired Constitutional: Denies: Chills, Fever Pulmonary: Reports: Cough, Pleuritic Chest Pain; Denies: Dyspnea Cardiovascular: Denies: Chest Pain, Palpitations, Orthopnea, Edema Gastrointestinal: Denies: Nausea, Vomiting, Abdominal Pain Genitourinary: Denies: Dysuria, Frequency, Hematuria Psych: Reports: Mood Normal Objective Physical Examination General Exam: Positive: Alert, Cooperative, No Acute Distress Eye Exam: Positive: Conjunctiva & lids normal Neck Exam: Positive: Supple; Negative: JVD, Lymphadenopathy Chest Exam: Positive: Rhonchi (bilateral bases, faint ); Negative: Rales, Wheezing Heart Exam: Positive: Regular Rhythm, Other (98-10) Abdomen Exam: Positive: Normal bowel sounds, Soft; Negative: Tenderness Extremity Exam: Negative: Edema Psych Exam: Positive: Mood NL Assessment /Plan Problems (1) Pneumonia Status: Acute Problem Text: Started on Levaquin 750mg IV. Tmax 101.2. Tylenol for fever. O2 96% on RA. WBC 7.7, down from 12.7. BC pending. Lactic Acid down to 0.8 Chest X-poncho IMPRESSION: Bilateral lower lung opacities concerning for pneumonic infiltrates greater on the left with additional subsegmental atelectasis retrocardiac left lower lung and right midlung. (2) Acute kidney injury superimposed on chronic kidney disease Status: Acute Response to Treatment: Stable Problem Text: BUN/Cre 24/1.52, GFR 35. Baseline Cre ~1.0-1.2, GFR ~55. (3) Kidney stone Status: Chronic Response to Treatment: Stable Problem Text: Patient with a laser lithotripsy and stent placement performed yesterday. Urine culture pending Plan/VTE VTE Prophylaxis Ordered?: Yes (Heparin ) Plan Family Medicine Attending Note: I saw and examined Ms. Rea, discussed with Shawn Fofana DNP. Agree with her note as documented. Her fevers subsided by the afternoon and she reported that she was generally feeling better by the time I saw her. 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) VS, I&O, 24H, Fishbone Vital Signs/I&O Vital Signs Date Time Temp Pulse Resp B/P (MAP) Pulse Ox O2 Delivery O2 Flow Rate FiO2 09/18/18 09:26 101 128/59 09/18/18 09:00 101.2 17 96 Room Air I&O- Last 24 Hours up to 6 AM 09/18/18 06:00 Intake Total 1100 ml Balance 1100 ml Laboratory Data 24H LABS Laboratory Tests 2 09/17/18 23:14: Urine Color YELLOW, Urine Appearance HAZY, Urine pH 5.0, Urine Specific [place] 1.010, Urine Protein 2+H, Urine Glucose (UA) NEGATIVE, Urine Ketones NEGATIVE, Urine Blood 3+H, Urine Nitrite NEGATIVE, Urine Bilirubin NEGATIVE, Urine U robilinogen 0.2, Urine Leukocyte Esterase 2+H, Urine WBC (Auto) 96H, Urine RBC (Auto) TNTCH, Urine Hyaline Casts (Auto) 0, Urine Bacteria (Auto) NEGATIVE, Urine Squamous Epithelial Cells 0, Urine Mucus (Auto) SMALL, Urine Yeast-Like Cells (Auto) SMALLH, Urine Sperm (Auto) 09/17/18 23:15: Immature Granulocyte % (Auto) 0.5, White Blood Count 12.7H, Red Blood Count 3.56L, Hemoglobin 11.0L, Hematocrit 32.7L, Mean Corpuscular Volume 91.9, Mean Corpuscular Hemoglobin 30.9, Mean Corpuscular Hemoglobin Concent 33.6, Red Cell Distribution Width 13.1, Platelet Count 179, Neutrophils (%) (Auto) 93.7H, Lymphocytes (%) (Auto) 2.1L, Monocytes (%) (Auto) 3.5, Eosinophils (%) (Auto) 0.0, Basophils (%) (Auto) 0.2, Neutrophils # (Auto) 11.9H, Lymphocytes # (Auto) 0.3L, Monocytes # (Auto) 0.4, Eosinophils # (Auto) 0.0, Basophils # (Auto) 0.0, Nucleated Red Blood Cells % (auto) 0.0, Anion Gap 11, Glomerular Filtration Rate 27.4L, Lactic Acid Level 2.5*H, Calcium Level 7.9L, Aspartate Amino Transf (AST/SGOT) 20, Alanine Aminotransferase (ALT/SGPT) 16, Alkaline Phosphatase 64, Total Bilirubin 0.4, Direct Bilirubin 0.1, Total Protein 6.2L, Albumin 2.6L, Albumin/Globulin Ratio 0.72L, Lipase 49L 09/18/18 07:19: Nucleated Red Blood Cells % (auto) 0.0, Anion Gap 9, Glomerular Filtration Rate 35.7L, Calcium Level 7.3L, Lactic Acid Followup at 4 Hours 0.8, Blood Urea Nitrogen 24H, Creatinine 1.52H, Sodium Level 139, Potassium Level 4.1, Chloride Level 107, Carbon Dioxide Level 23 CBC/BMP Laboratory Tests 09/17/18 23:15 Red Blood Count 3.56 L, Mean Corpuscular Volume 91.9, Mean Corpuscular Hemoglobin 30.9, Mean Corpuscular Hemoglobin Concent 33.6, Red Cell Distribution Width 13.1, Neutrophils (%) (Auto) 93.7 H, Lymphocytes (%) (Auto) 2.1 L, Monocytes (%) (Auto) 3.5, Eosinophils (%) (Auto) 0.0, Basophils (%) (Auto) 0.2, Neutrophils # (Auto) 11.9 H, Lymphocytes # (Auto) 0.3 L, Monocytes # (Auto) 0.4, Eosinophils # (Auto) 0.0, Basophils # (Auto) 0.0 09/18/18 07:19 Red Blood Count 3.14 L, Mean Corpuscular Volume 93.3, Mean Corpuscular Hemoglobin 31.5, Mean Corpuscular Hemoglobin Concent 33.8, Red Cell Distribution Width 13.2, Calcium Level 7.3 L Microbiology Microbiology 09/18/18 Blood Culture, Received Pending 09/18/18 Blood Culture, Received Pending 09/17/18 Blood Culture, Received Pending 09/17/18 Blood Culture, Received Pending 09/17/18 Urine Culture, Received Pending SHAWN FOFANA Sep 18, 2018 11:34 Kristopher Tejeda MD Sep 18, 2018 20:36
[2018-09-18 12:00] VITALS: BP 95/56
[2018-09-18] MEDS: IBUPROFEN 200 MG TAB PO PRN ×2 (12:35→20:06)
[2018-09-18 14:00] VITALS: BP 104/50
[2018-09-18 17:50] VITALS: BP 100/38
[2018-09-18 20:00] VITALS: BP 112/52
[2018-09-18 20:32] VITALS: BP 119/84
[2018-09-18] MEDS ORDERED: ALPRAZolam 0.5 MG TAB PO PRN (22:15)
[2018-09-19] MEDS: NS 1,000 ML IV SCH ×4 (00:20→19:50)
[2018-09-19] MEDS: HEPARIN SOD (PORCINE) 5000 UNITS/ML VIAL SC SCH ×3 (05:58→21:39)
[2018-09-19] MEDS: IBUPROFEN 200 MG TAB PO PRN ×3 (06:04→19:50)
[2018-09-19 06:26] VITALS: BP 122/84
[2018-09-19 06:53] LABS: HEMATOCRIT 34.5 % (36.0-47.0); MEAN CORPUSCULAR HEMOGLOBIN 30.6 pg (27.0-33.0); MEAN CORPUSCULAR HGB CONC 31.9 g/dl (32.0-36.5); MEAN CORPUSCULAR VOLUME 95.8 fl (80.0-96.0); PLATELET COUNT, AUTOMATED 147 10^3/uL (150-450); WHITE BLOOD COUNT 6.6 10^3/uL (4.0-10.0)
[2018-09-19 07:17] LABS: CREATININE FOR GFR 1.3 MG/DL (0.55-1.30); GLOMERULAR FILTRATION RATE 42.7 (>39); POTASSIUM SERUM 4.2 MEQ/L (3.5-5.1)
[2018-09-19 07:35] LABS: ATYPICAL LYMPH 2 % (0-5); EOSINOPHILS 1 % (0-5); LYMPHOCYTES 12 % (16-52); MONOCYTES 2 % (0-8); NEUTROPHILS 75 % (35-75)
[2018-09-19 07:37] LABS: PLATELET ESTIMATE NORMAL (NORMAL)
[2018-09-19] MEDS: oxyBUTYnin 5 MG TAB PO SCH ×3 (09:00→21:00)
[2018-09-19] MEDS: FLUTICASONE PROP 0.05% NASAL SPRAY 16 GM (FLONASE) SCH (09:00)
[2018-09-19] MEDS: ASPIRIN 81 MG ENTERIC TAB PO SCH (10:06)
[2018-09-19] MEDS: PANTOPRAZOLE 40MG TAB (PROTONIX) PO SCH (10:06)
[2018-09-19] MEDS: METOPROLOL TART 50 MG TAB PO SCH ×2 (10:06→21:00)
[2018-09-19] MEDS: SPIRONOLACTONE 12.5MG PER 1/2 TABLET PO SCH (10:07)
[2018-09-19 11:19] VITALS: BP 110/46
[2018-09-19] MEDS: MEROPENEM INJ 1 GM in APPROPRIATE DILUENT 1 EA IV SCH ×2 (13:07→21:40)
[2018-09-19] MEDS ORDERED: PROCHLORPERAZINE 5 MG TAB (S0183) PO ONE (13:30)
[2018-09-19 14:30] VITALS: BP 126/82
[2018-09-19 20:18] VITALS: BP 104/52
--- NOTE | 2018-09-20 00:57 | IPNPDOC ---
Subjective Date Seen The patient was seen on 09/19/18. Subjective Events since last encounter Seen with family at bedside. She reports that while she is coughing, she is more bothered by her nausea. Family states Zofran has not been helpful in the past, though Compazine has been. Constitutional: Reports: Chills, Fever Pulmonary: Reports: Dyspnea, Cough Cardiovascular: Reports: Chest Pain; Denies: Palpitations Gastrointestinal: Reports: Nausea Objective Physical Examination General Exam: Positive: Alert, Cooperative, Mild Distress (developing another fever, trembling) Eye Exam: Positive: Conjunctiva & lids normal Neck Exam: Positive: Supple; Negative: JVD, Lymphadenopathy Chest Exam: Positive: Rhonchi (bilateral bases, faint ); Negative: Rales, Wheezing Heart Exam: Positive: Regular Rhythm, Other (98-10) Abdomen Exam: Positive: Normal bowel sounds, Soft; Negative: Tenderness Extremity Exam: Negative: Edema Psych Exam: Positive: Mood NL Assessment /Plan Problems (1) Pneumonia Status: Acute Problem Text: 09/19: Leukocytosis improved but patient still febrile. Added meropenem to Levaquin as recent hospitalization provided Pseudomonal risk factors; allergic to many antibiotic classes. Started on Levaquin 750mg IV. Tmax 101.2. Tylenol for fever. O2 96% on RA. WBC 7.7, down from 12.7. BC pending. Lactic Acid down to 0.8 Chest X-poncho IMPRESSION: Bilateral lower lung opacities concerning for pneumonic infiltrates greater on the left with additional subsegmental atelectasis retrocardiac left lower lung and right midlung. (2) Acute kidney injury superimposed on chronic kidney disease Status: Acute Response to Treatment: Stable Problem Text: BUN/Cre 24/1.52, GFR 35. Baseline Cre ~1.0-1.2, GFR ~55. (3) Kidney stone Status: Chronic Response to Treatment: Stable Problem Text: Patient with a laser lithotripsy and stent placement performed yesterday. Urine culture pending Plan/VTE VTE Prophylaxis Ordered?: Yes (Heparin ) VS, I&O, 24H, Fishbone Vital Signs/I&O Vital Signs Date Time Temp Pulse Resp B/P (MAP) Pulse Ox O2 Delivery O2 Flow Rate FiO2 09/19/18 21:00 2.0 09/19/18 21:00 99 104/52 09/19/18 20:18 99.1 18 97 09/18/18 09:00 Room Air I&O- Last 24 Hours up to 6 AM 09/20/18 06:00 Intake Total 450 ml Output Total 625 ml Balance -175 ml Laboratory Data 24H LABS Laboratory Tests 2 09/19/18 06:18: Nucleated Red Blood Cells % (auto) 0.0, Neutrophils 75, Band Neutrophils 8, Lymphocytes (Manual) 12L, Monocytes (Manual) 2, Eosinophils (Manual) 1, Atypical Lymphocytes 2, Platelet Estimate NORMAL, Anion Gap 8, Glomerular Filtration Rate 42.7, Blood Urea Nitrogen 20H, Creatinine 1.30, Sodium Level 140, Potassium Level 4.2, Chloride Level 110H, Carbon Dioxide Level 22, Calcium Level 8.0L CBC/BMP Laboratory Tests 09/19/18 06:18 Red Blood Count 3.60 L, Mean Corpuscular Volume 95.8, Mean Corpuscular Hemoglobin 30.6, Mean Corpuscular Hemoglobin Concent 31.9 L, Red Cell Distribution Width 13.2, Calcium Level 8.0 L Microbiology Microbiology 09/19/18 Blood Culture, Received Pending 09/19/18 Blood Culture, Received Pending 09/18/18 Blood Culture - Preliminary, Resulted No growth after 24 hours . All specim... 09/18/18 Blood Culture - Preliminary, Resulted No growth after 24 hours . All specim... 09/17/18 Blood Culture - Preliminary, Resulted No Growth after 48 hours. All Specime... 09/17/18 Blood Culture - Preliminary, Resulted No Growth after 48 hours. All Specime... 09/17/18 Urine Culture - Final, Complete PAO MOSQUEDA DO Sep 20, 2018 00:57
[2018-09-20] MEDS: NS 1,000 ML IV SCH ×3 (02:08→21:24)
[2018-09-20] MEDS: IBUPROFEN 200 MG TAB PO PRN ×3 (02:08→21:24)
[2018-09-20] MEDS: IPRATROPIUM 0.5MG/ALBUTEROL 2.5MG INH SOL UD 3ML (DUONEB)(J7620) NEB PRN ×3 (03:27→23:27)
[2018-09-20] MEDS: LevoFLOXacin IV 750 MG in APPROPRIATE DILUENT 1 EA IV SCH (04:33)
[2018-09-20 06:00] LABS: BASO % 0.4 % (0.0-1.0); EOS % 0.5 % (0.0-3.0); HEMATOCRIT 26.6 % (36.0-47.0); LYMPH # 0.8 10^3/uL (1.5-4.5); LYMPH % 13.6 % (24.0-44.0); MEAN CORPUSCULAR HEMOGLOBIN 29.5 pg (27.0-33.0); MEAN CORPUSCULAR HGB CONC 32.3 g/dl (32.0-36.5); MEAN CORPUSCULAR VOLUME 91.1 fl (80.0-96.0); MONO # 0.5 10^3/uL (0.0-0.8); MONO % 8.2 % (0.0-5.0); NEUTROPHILS # 4.3 10^3/uL (1.8-7.7); NEUTROPHILS % 76.9 % (36.0-66.0); PLATELET COUNT, AUTOMATED 142 10^3/uL (150-450); RED BLOOD COUNT 2.92 10^6/uL (4.00-5.40); WHITE BLOOD COUNT 5.6 10^3/uL (4.0-10.0)
[2018-09-20] MEDS ORDERED: LevoFLOXacin IV 750 MG in APPROPRIATE DILUENT 1 EA IV SCH (06:00)
[2018-09-20 06:08] LABS: HEMOGLOBIN 8.6 g/dl (12.0-15.5)
[2018-09-20 06:20] LABS: CALCIUM LEVEL 7.1 MG/DL (8.8-10.2); CREATININE FOR GFR 1.06 MG/DL (0.55-1.30); GLOMERULAR FILTRATION RATE 54.1 (>39); POTASSIUM SERUM 3.6 MEQ/L (3.5-5.1)
[2018-09-20] MEDS: MEROPENEM INJ 1 GM in APPROPRIATE DILUENT 1 EA IV SCH ×3 (06:22→21:22)
[2018-09-20] MEDS: HEPARIN SOD (PORCINE) 5000 UNITS/ML VIAL SC SCH ×3 (06:22→21:22)
[2018-09-20 06:38] VITALS: BP 126/63
[2018-09-20] MEDS: SPIRONOLACTONE 12.5MG PER 1/2 TABLET PO SCH (08:54)
[2018-09-20] MEDS: PANTOPRAZOLE 40MG TAB (PROTONIX) PO SCH (08:54)
[2018-09-20] MEDS: oxyBUTYnin 5 MG TAB PO SCH ×3 (08:55→21:00)
[2018-09-20] MEDS: FLUTICASONE PROP 0.05% NASAL SPRAY 16 GM (FLONASE) SCH (08:55)
[2018-09-20] MEDS: ASPIRIN 81 MG ENTERIC TAB PO SCH (08:55)
[2018-09-20] MEDS: METOPROLOL TART 50 MG TAB PO SCH ×2 (08:55→21:00)
[2018-09-20 10:33] VITALS: BP 121/64
[2018-09-20 14:18] VITALS: BP 125/63
[2018-09-20] MEDS ORDERED: DOCUSATE SODIUM 100 MG CAP PO PRN (16:15)
[2018-09-20 22:00] VITALS: BP 156/78
[2018-09-21 02:00] VITALS: BP 112/52
--- NOTE | 2018-09-21 03:37 | IPNPDOC ---
Subjective Date Seen The patient was seen on 09/20/18. Subjective Chief Complaint/HPI Fever improved, was afebrile from yesterday afternoon until 2:00 this afternoon, and fever was lower when it recurred. Still feeling uncomfortable and anxious, and requesting Valium, though she has a history of falls with significant injury associated with controlled substances during previous hospitalization. Nausea is a bigger complaint than cough. One blood culture on 09/17 was positive for a yeast-like organism, though the other drawn that day wasn't, and none of the other blood cultures has been positive thus far. Constitutional: Denies: Chills, Fever ENT: Reports: Sore Throat Pulmonary: Reports: Cough; Denies: Dyspnea Cardiovascular: Denies: Chest Pain, Palpitations Gastrointestinal: Reports: Nausea, Vomiting Neurological: Reports: Weakness, Other Symptoms (tremor) Objective Physical Examination General Exam: Positive: Alert, Cooperative, Mild Distress (appears quite anxious) Eye Exam: Positive: Conjunctiva & lids normal Neck Exam: Positive: Supple; Negative: JVD, Lymphadenopathy Chest Exam: Positive: Rhonchi (bilateral bases, faint ); Negative: Rales, Wheezing Heart Exam: Positive: Regular Rhythm Abdomen Exam: Positive: Normal bowel sounds, Soft; Negative: Tenderness Extremity Exam: Negative: Edema Psych Exam: Positive: Anxiety Assessment /Plan Problems (1) Pneumonia Status: Acute Problem Text: 09/19: Leukocytosis improved but patient still febrile. Added meropenem to Levaquin as recent hospitalization provided Pseudomonal risk factors; allergic to many antibiotic classes. Started on Levaquin 750mg IV. Tmax 101.2. Tylenol for fever. O2 96% on RA. WBC 7.7, down from 12.7. BC pending. Lactic Acid down to 0.8 Chest X-poncho IMPRESSION: Bilateral lower lung opacities concerning for pneumonic infiltrates greater on the left with additional subsegmental atelectasis retrocardiac left lower lung and right midlung. (2) Acute kidney injury superimposed on chronic kidney disease Status: Acute Response to Treatment: Stable Problem Text: BUN/Cre 24/1.52, GFR 35. Baseline Cre ~1.0-1.2, GFR ~55. (3) Kidney stone Status: Chronic Response to Treatment: Stable Problem Text: 09/20 -- urine culture negative Patient with a laser lithotripsy and stent placement performed yesterday. Urine culture pending Plan/VTE VTE Prophylaxis Ordered?: Yes (Heparin ) VS, I&O, 24H, [facility] Vital Signs/I&O Vital Signs Date Time Temp Pulse Resp B/P (MAP) Pulse Ox O2 Delivery O2 Flow Rate FiO2 09/21/18 02:00 98.8 93 18 112/52 (72) 98 2.0 09/18/18 09:00 Room Air I&O- Last 24 Hours up to 6 AM 09/21/18 06:00 Intake Total 1870 ml Output Total 500 ml Balance 1370 ml Laboratory Data 24H LABS Laboratory Tests 2 09/20/18 05:26: Immature Granulocyte % (Auto) 0.4, White Blood Count 5.6, Red Blood Count 2.92L, Hemoglobin 8.6#L, Hematocrit 26.6L, Mean Corpuscular Volume 91.1, Mean Corpuscular Hemoglobin 29.5, Mean Corpuscular Hemoglobin Concent 32.3, Red Cell Distribution Width 13.2, Platelet Count 142L, Neutrophils (%) (Auto) 76.9H, Lymphocytes (%) (Auto) 13.6L, Monocytes (%) (Auto) 8.2H, Eosinophils (%) (Auto) 0.5, Basophils (%) (Auto) 0.4, Neutrophils # (Auto) 4.3, Lymphocytes # (Auto) 0.8L, Monocytes # (Auto) 0.5, Eosinophils # (Auto) 0.0, Basophils # (Auto) 0.0, Nucleated Red Blood Cells % (auto) 0.0, Anion Gap 10, Glomerular Filtration Rate 54.1, Blood Urea Nitrogen 16, Creatinine 1.06, Sodium Level 141, Potassium Level 3.6, Chloride Level 110H, Carbon Dioxide Level 21, Calcium Level 7.1L CBC/BMP Laboratory Tests 09/20/18 05:26 Red Blood Count 2.92 L, Mean Corpuscular Volume 91.1, Mean Corpuscular Hemoglobin 29.5, Mean Corpuscular Hemoglobin Concent 32.3, Red Cell Distribution Width 13.2, Neutrophils (%) (Auto) 76.9 H, Lymphocytes (%) (Auto) 13.6 L, Monocytes (%) (Auto) 8.2 H, Eosinophils (%) (Auto) 0.5, Basophils (%) (Auto) 0.4, Neutrophils # (Auto) 4.3, Lymphocytes # (Auto) 0.8 L, Monocytes # (Auto) 0.5, Eosinophils # (Auto) 0.0, Basophils # (Auto) 0.0, Calcium Level 7.1 L Microbiology Microbiology 09/19/18 Blood Culture - Preliminary, Resulted No growth after 24 hours . All specim... 09/19/18 Blood Culture - Preliminary, Resulted No growth after 24 hours . All specim... 09/18/18 Blood Culture - Preliminary, Resulted No Growth after 48 hours. All Specime... 09/18/18 Blood Culture - Preliminary, Resulted No Growth after 48 hours. All Specime... 09/17/18 Blood Culture - Preliminary, Resulted 09/17/18 Blood Culture - Preliminary, Resulted No Growth after 72 hours. All specime... 09/17/18 Urine Culture - Final, Complete PAO MOSQUEDA DO Sep 21, 2018 03:37
[2018-09-21] MEDS: MEROPENEM INJ 1 GM in APPROPRIATE DILUENT 1 EA IV SCH ×2 (05:43→14:32)
[2018-09-21] MEDS: HEPARIN SOD (PORCINE) 5000 UNITS/ML VIAL SC SCH ×3 (05:43→21:37)
[2018-09-21 06:00] VITALS: BP 147/67
[2018-09-21 06:44] LABS: CALCIUM LEVEL 7.4 MG/DL (8.8-10.2); CREATININE FOR GFR 1.05 MG/DL (0.55-1.30); GLOMERULAR FILTRATION RATE 54.7 (>39); POTASSIUM SERUM 3.7 MEQ/L (3.5-5.1)
[2018-09-21] MEDS: METOPROLOL TART 50 MG TAB PO SCH ×2 (08:26→21:37)
[2018-09-21] MEDS: ASPIRIN 81 MG ENTERIC TAB PO SCH (08:26)
[2018-09-21] MEDS: NS 1,000 ML IV SCH (08:26)
[2018-09-21] MEDS: SPIRONOLACTONE 12.5MG PER 1/2 TABLET PO SCH (08:26)
[2018-09-21] MEDS: PANTOPRAZOLE 40MG TAB (PROTONIX) PO SCH (08:26)
[2018-09-21] MEDS: FLUTICASONE PROP 0.05% NASAL SPRAY 16 GM (FLONASE) SCH (08:27)
[2018-09-21] MEDS: oxyBUTYnin 5 MG TAB PO SCH ×3 (08:27→21:00)
--- NOTE | 2018-09-21 09:10 | IPNPDOC ---
Subjective Date Seen The patient was seen on 09/21/18. Subjective Chief Complaint/HPI Pt this morning c/o sore mouth and tongue, not able to eat much d/t pain. She slept a little better last night. States that she wakes herself up because she becomes anxious that she is going to "forget to breath". Cough is much looser. General: Reports: Fatigue Constitutional: Reports: Chills, Fever ENT: Denies: Head Aches Pulmonary: Reports: Dyspnea, Cough Cardiovascular: Denies: Chest Pain, Palpitations Gastrointestinal: Denies: Nausea, Vomiting, Diarrhea Neurological: Reports: Weakness Psych: Reports: Mood Normal Objective Physical Examination General Exam: Positive: Alert, Cooperative, No Acute Distress ENT Exam: Negative: Mucous membr. moist/pink (thick white film noted on tongue, small white plaques noted on R buccal mucosa) Neck Exam: Positive: Supple; Negative: JVD, Lymphadenopathy Chest Exam: Positive: Rhonchi (bilateral bases, faint ); Negative: Rales, Wheezing Heart Exam: Positive: Regular Rhythm Abdomen Exam: Positive: Normal bowel sounds, Soft; Negative: Tenderness Extremity Exam: Negative: Edema Psych Exam: Positive: Anxiety Assessment /Plan Problems (1) Fluid overload Status: Acute Problem Text: as of 09/21 + ~6600! +/- CHF (TTE P) 09/21 BNP 6493 (no previous in [place]), TTE P, gave fur 20 IV x 1 and SLIV NS 100H (2) Anemia Status: Chronic Problem Text: 09/21 10.2 09/20 8.6-partially dilutional given as of 09/21 + ~6600! vs fallacious baseline hgb 9-10 (3) Candidemia Status: Acute Problem Text: needs opthalmo check for endopthalmitis favoring transient candidemia c uro procedure 09/21/18 + fluconazole 400 IV x 1, then po (+ Wm), checking renal US, TTE 09/18 BCX2 NG 09/17 BCX2 NG 09/17/18 BCX2/2 yeast like organism (4) Pneumonia Status: Acute Problem Text: D4 levo/D1 flucon (ro held by ID) 09/21 WBC has normalized Tmax down to 100.9 Chest X-poncho IMPRESSION: Bilateral lower lung opacities concerning for pneumonic infiltrates greater on the left with additional subsegmental atelectasis retrocardiac left lower lung and right midlung. (5) Acute kidney injury superimposed on chronic kidney disease Status: Resolved Response to Treatment: Stable Problem Text: 09/21 at baseline cr 1.0 (6) Kidney stone Status: Chronic Response to Treatment: Stable Problem Text: 09/20 -- urine culture negative Patient with a laser lithotripsy and stent placement performed yesterday. Urine culture pending Plan/VTE VTE Prophylaxis Ordered?: Yes (Heparin ) VS, I&O, 24H, Fishbone Vital Signs/I&O Vital Signs Date Time Temp Pulse Resp B/P (MAP) Pulse Ox O2 Delivery O2 Flow Rate FiO2 09/21/18 08:26 90 147/67 09/21/18 06:00 98.8 100 09/21/18 02:00 18 2.0 09/18/18 09:00 Room Air I&O- Last 24 Hours up to 6 AM 09/21/18 06:00 Intake Total 3220 ml Output Total 500 ml Balance 2720 ml Laboratory Data 24H LABS Laboratory Tests 2 09/21/18 05:18: Anion Gap 8, Glomerular Filtration Rate 54.7, Blood Urea Nitrogen 13, Creatinine 1.05, Sodium Level 141, Potassium Level 3.7, Chloride Level 111H, Carbon Dioxide Level 22, Calcium Level 7.4L CBC/BMP Laboratory Tests 09/21/18 05:18 Calcium Level 7.4 L Microbiology Microbiology 09/19/18 Blood Culture - Preliminary, Resulted No growth after 24 hours . All specim... 09/19/18 Blood Culture - Preliminary, Resulted No growth after 24 hours . All specim... 09/18/18 Blood Culture - Preliminary, Resulted No Growth after 72 hours. All specime... 09/18/18 Blood Culture - Preliminary, Resulted No Growth after 72 hours. All specime... 09/17/18 Blood Culture - Preliminary, Resulted Yeast Like Organism 09/17/18 Blood Culture - Preliminary, Resulted 09/17/18 Urine Culture - Final, Complete KO MORENO PA-C Sep 21, 2018 09:10 Ignacio Kamara M.D. Sep 21, 2018 16:20
[2018-09-21 10:00] VITALS: BP 122/68
[2018-09-21] MEDS ORDERED: NYSTATIN 500,000 U/5 ML SUSP UDC SS SCH (12:00)
[2018-09-21 14:00] VITALS: BP 147/76
[2018-09-21 17:02] LABS: BASO % 0.3 % (0.0-1.0); EOS # 0.1 10^3/uL (0.0-0.50); EOS % 1.8 % (0.0-3.0); HEMATOCRIT 31.1 % (36.0-47.0); HEMOGLOBIN 10.2 g/dl (12.0-15.5); LYMPH # 1.3 10^3/uL (1.5-4.5); LYMPH % 18.2 % (24.0-44.0); MEAN CORPUSCULAR HEMOGLOBIN 30.7 pg (27.0-33.0); MEAN CORPUSCULAR HGB CONC 32.8 g/dl (32.0-36.5); MEAN CORPUSCULAR VOLUME 93.7 fl (80.0-96.0); MONO # 0.8 10^3/uL (0.0-0.8); NEUTROPHILS % 67.3 % (36.0-66.0); PLATELET COUNT, AUTOMATED 170 10^3/uL (150-450); RED BLOOD COUNT 3.32 10^6/uL (4.00-5.40); WHITE BLOOD COUNT 7.4 10^3/uL (4.0-10.0)
[2018-09-21 18:00] VITALS: BP 144/63
[2018-09-21] MEDS ORDERED: FLUCONAZOLE 400 MG in APPROPRIATE DILUENT 1 EA IV ONE (18:00)
[2018-09-21] MEDS: IBUPROFEN 200 MG TAB PO PRN (18:41)
--- NOTE | 2018-09-21 18:48 | REP ---
RENAL AND BLADDER ULTRASOUND: Real-time sonographic evaluation of the kidneys are performed. The kidneys are normal in size and echotexture, right measuring 10.1 x 4.9 x 3.7 cm and left kidney 11.5 x 5.3 x 5.1 cm. There is no hydronephrosis bilaterally. I suspect an echogenic stone medially in the right kidney measuring approximately 1.3 cm in diameter. A cystic area medially measures 1.7 cm in diameter and laterally at 2.1 cm in diameter. These are in the upper right kidney. Left kidney demonstrates mild pelviectasis. A stent is seen in the left renal pelvis. There appears to be a 7 mm calculus in the mid renal pelvis. The urinary bladder is mildly distended and contains a pigtail stent coming from the left ureter. IMPRESSION: No hydronephrosis. Calculus mid right kidney 1.3 cm in diameter. Two cysts in the upper pole of the right kidney. Left ureteral stent is seen with the proximal end coiled in the left renal pelvis and the distal end coiled in the urinary bladder. There is mild left pelviectasis. There appears to be a 7 mm calculus in the left renal pelvis. Electronically Signed by Jose De Jesus Cardona MD 09/22/2018 12:43 P
[2018-09-21] MEDS ORDERED: FUROSEMIDE 20 MG/2 ML VIAL (J1940) IV ONE (19:00)
--- NOTE | 2018-09-21 19:16 | CR ---
DATE OF CONSULTATION: 09/21/2018 INFECTIOUS DISEASE CONSULTATION NOTE REQUESTING PROVIDER: [facility], Dr. Kamara. REASON FOR CONSULT: Candidemia. HISTORY OF THE PRESENT ILLNESS: Ms. Rea is a 73-year-old female with past medical history as listed below. She has had multiple visits to the hospital for left-sided nephrolithiasis and hydronephrosis. Most recently she was seen in the emergency room (ER) this past on September 17, 2018 for flank pain. She was found to have an 8 mm obstructing left ureteral stone and additional stone fragments in the left ureter, found to be septic and having mild acute kidney injury (GUANACO) from this. She was taken to the operating room (OR) for cystoscopy, left ureteroscopy with laser lithotripsy, and left ureter stent placement, and discharged home thereafter directly from the OR. She reports fevers up to103 and associated chills and nausea within hours of returning home, and therefore, returned back to the hospital and was admitted. Infectious disease was consulted due to initial blood culture from this admission on 09/17/2018 being positive for yeast-like organism in both sets; however, repeat blood cultures in four additional sets have been negative thus far at 72 hours and 48 hours. She continues to have transient fevers during her hospitalization despite being on antibiotics for pneumonia. She has been on meropenem since 09/19/2018 and Levaquin since 09/20/2018. Most recent fever was 100.9 over this most recent night. She endorses a dry cough, fevers, chills, and nausea over the past couple of days. Denies any other symptoms. Of note, imaging found bilateral lower lung opacities, suggesting possible pneumonia. She also has a positive urinalysis (UA), which was negative on her previous emergency room (ER) visit on the same day on 09/17/2018. Currently she denies any dysuria, urinary frequency, urgency, or hematuria. States that her flank pain and urinary symptoms have resolved since stent was placed. CURRENT INPATIENT MEDICINES: IV meropenem every 8 hours started 09/19/2018 IV levofloxacin every 48 hours started 09/18/2018 Heparin 5000 units subcutaneous every 8 hours Tylenol 650 MG by mouth every 4 hours when necessary Ibuprofen 200 mg by mouth every 6 hours when necessary Zofran 4 mg IV every 4 hours when necessary Ditropan 5 mg by mouth 3 times a day Lopressor 50 mg by mouth twice a day Aldactone 12.5 mg by mouth daily Protonix 40 mg by mouth daily Flonase daily Aspirin 1 mg by mouth daily Xanax 1 mg by mouth daily at bedtime when necessary DuoNeb every 4 hours when necessary Colace 100 mg by mouth twice a day when necessary Nystatin 5 mL every 6 hours swish swallow PAST MEDICAL HISTORY: Recurrent nephrolithiasis and hydronephrosis. Hypertension. Atrial fibrillation, status post ablation. Basilar artery aneurysm, status post repair. Subdural hematoma. PAST SURGICAL HISTORY: Basilar artery aneurysm repair. Subdural hematoma evacuation. Cardiac ablation. Right knee repair. SOCIAL HISTORY: Experimented with tobacco for 2 weeks during her teen years; otherwise denies any current tobacco, alcohol or illicit substances. Used to occasionally drink alcohol, quit April 2017. Has four children and eight grandchildren. Lives at home alone, is . FAMILY HISTORY: Father had kidney stones, stroke and atrial fibrillation. Mother with dementia. ALLERGIES: MULTIPLE - Please see chart. REVIEW OF SYSTEMS: Negative as per history of the present illness. PHYSICAL EXAMINATION: VITAL SIGNS: Temperature 98.8, pulse 90, respirations 17, blood pressure 147/67, mean arterial pressure (MAP) of 93, pulse oximetry 100% on two liters nasal cannula. GENERAL: Resting comfortably in bed, in no acute distress. Alert and oriented (A and O) times three. EYES: Pupils equal, round, and reactive to light. Anicteric sclerae. Extraocular muscles intact. No visible lesions or hemorrhaging. HEENT: Normocephalic, atraumatic. Dry mucous membranes. Pharyngeal erythema present without any exudates or edema. No postnasal drip or adenopathy. CARDIOVASCULAR: Normal S1, S2. Rate is controlled. LUNGS: Bibasilar crackles, more so in the right lower base. ABDOMEN: Soft, nontender, nondistended. Hypoactive bowel sounds. SKIN: Warm, dry without any appreciable lesions. NEUROLOGIC: Resting tremor versus shaking chills currently, which patient states are not present at baseline. No other focal deficits or asymmetry or weakness. LABORATORY: WBC 7.4, hemoglobin and hematocrit 10.2 and 31.1, platelets 170. Sodium and potassium 141 and 3.7. BUN and creatinine 13 and 1.05. UA: 2+ protein, 3+ blood, 2+ leukocyte esterase, 96 WBCs, too numerous to count RBCs and small amount of yeast-like cells. Urine culture from 09/17/2018: No growth. Blood culture from 09/17/2018 have yeast-like organisms. Blood cultures from 09/18/2018 times two have no growth at 72 hours. Blood cultures from 09/19/2018 times two are negative at 48 hours. IMAGIN09/18/2018 chest x-ray: Bilateral lower lung opacities, concerning for pneumonic infiltrates, greater on the left with additional subsegmental atelectasis, retrocardiac left lower lung and right mid lung. IMPRESSION/PLAN: 1. Transient candidemia. Patient had two sets of blood cultures on 09/17/2018 that grew yeast; however, repeat on 09/18/2018 as well as 09/19/2018 have a total of four sets of negative blood cultures without any antifungal treatment. Her UA does note yeast-like cells. However, interestingly, her initial UA on 09/17/2018 from her visit to the ER was completely normal and then again on repeat later on 09/17/2018 for this admission was abnormal. There is high suspicion that her transient candidemia is likely secondary to vy growing in her kidney that was disseminated from the procedures. Given that she continues to have transient fevers despite being on antibiotics, we will give her one dose of intravenous (IV) Diflucan today and start 14 days of oral Diflucan tomorrow. Will obtain a renal ultrasound to assess her kidneys for any possible abscesses or other irregularities status post renal stent placement. Patient should be monitored and should undergo dilated eye exam for optic sequelae of candidemia as well as echo to further assess any cardiac dysfunction from this. 2. Transient fevers, likely secondary to community-acquired pneumonia. She does endorse mild dry cough and fevers, chills at home. No sick contacts. Her white count is normal currently and imaging is questionable for pneumonia. It is possible she has congestive heart failure (CHF), although there is no documented history of CHF. We will order a BNP and an echo as well, which will help further assess her candidemia as well as any cardiac dysfunction. She is on spironolactone at home. She will likely need an increase in her diuretics pending her BNP. Will discontinue her meropenem and may continue on Levaquin currently for presumed community-acquired pneumonia. May consider ordering procalcitonin if she continues to have fevers despite antifungal and antibiotic. 3. Asymptomatic bacteruria, patient has positive UA, but no longer having any urinary symptoms since left renal stent was placed last week. Urine culture without growth. Does not need treatment. May consider following up on UA to further assess microscopic hematuria. Thank you for this consult. We shall be happy to follow along with you. JOSE MANUEL
--- NOTE | 2018-09-21 19:40 | ECHO ---
DATE OF PROCEDURE: 09/21/2018 REFERRING PHYSICIAN: Figueroa Weaver INDICATION: Fever. Height 165 cm, weight 62 kg. DIMENSIONS: IVS: 1.0 LV: 3.5 LVPW: 1.0 LA: 3.6 Aorta: 3.0 IVC: 1.4 Mitral E wave velocity: 107 A-wave: 96 E prime septal: 5.7 E prime lateral: 8.3 FINDINGS: The study is of fair technical quality. The patient is in sinus rhythm. Left ventricle is normal size and likely normal systolic function, I estimate left ventricular ejection fraction (LVEF) 60-65%. No apparent segmental wall motion abnormalities are noted. Right ventricle appears normal. Both atria appear grossly normal. Aortic valve has three cusps. It is mildly sclerotic but mobility is preserved. There are also mild degenerative abnormalities of mitral valve with mitral annular calcifications but mobility of mitral leaflets is intact. Tricuspid and pulmonic valves appear normal. No vegetations are seen on any of the four cardiac valves. Small posterior located pericardial effusion is noted. Inferior vena cava is of normal size. Aortic root appears normal. Aortic arch also appears normal. Abdominal aorta was not well seen. Doppler interrogation of aortic valve reveals no stenosis and trivial insufficiency. There is also trace mitral and tricuspid insufficiency. Calculated pulmonary artery pressure is around 40 mmHg corresponding to probably moderate pulmonary hypertension. Trace pulmonic insufficiency is noted. Mitral inflow pattern and tissue Doppler imaging of mitral annulus revealed grade 2 diastolic dysfunction. CONCLUSIONS: 1. Study is of fair technical quality. 2. Normal left ventricular (LV) size with preserved LV systolic function and grade 2 diastolic dysfunction. 3. Mild degenerative abnormalities of aortic and mitral valves but without significant stenosis and mild insufficiency of both. 4. Mild tricuspid and pulmonic insufficiency. 5. Likely normal central venous pressure but moderate pulmonary hypertension. 6. Small posteriorly located pericardial effusion. COMMENT: Subacute bacterial endocarditis (SBE) prophylaxis is not recommended. No visualized vegetations. If high clinical suspicion for bacterial endocarditis, transesophageal echocardiogram will provide much better resolution.
[2018-09-21 22:00] VITALS: BP 122/52
[2018-09-22 02:00] VITALS: BP 121/52
[2018-09-22] MEDS: LevoFLOXacin IV 750 MG in APPROPRIATE DILUENT 1 EA IV SCH (04:46)
[2018-09-22] MEDS: HEPARIN SOD (PORCINE) 5000 UNITS/ML VIAL SC SCH ×4 (04:47→21:50)
[2018-09-22 06:00] VITALS: BP 121/53
[2018-09-22 07:04] LABS: BASO % 0.4 % (0.0-1.0); EOS # 0.3 10^3/uL (0.0-0.50); HEMATOCRIT 27.2 % (36.0-47.0); HEMOGLOBIN 9.1 g/dl (12.0-15.5); LYMPH # 1.4 10^3/uL (1.5-4.5); MEAN CORPUSCULAR HGB CONC 33.5 g/dl (32.0-36.5); MEAN CORPUSCULAR VOLUME 92.5 fl (80.0-96.0); MONO # 0.6 10^3/uL (0.0-0.8); MONO % 8.4 % (0.0-5.0); NEUTROPHILS # 4.9 10^3/uL (1.8-7.7); PLATELET COUNT, AUTOMATED 168 10^3/uL (150-450); RED BLOOD COUNT 2.94 10^6/uL (4.00-5.40); WHITE BLOOD COUNT 7.3 10^3/uL (4.0-10.0)
[2018-09-22 07:26] LABS: ALBUMIN 1.8 GM/DL (3.2-5.2); BILIRUBIN,TOTAL 0.3 MG/DL (0.2-1.0); CALCIUM LEVEL 7.7 MG/DL (8.8-10.2); CREATININE FOR GFR 1.07 MG/DL (0.55-1.30); GLOMERULAR FILTRATION RATE 53.5 (>39); POTASSIUM SERUM 3.4 MEQ/L (3.5-5.1); TOTAL PROTEIN 5.2 GM/DL (6.4-8.2)
--- NOTE | 2018-09-22 08:37 | IPNPDOC ---
Subjective Date Seen The patient was seen on 09/22/18. Subjective Chief Complaint/HPI Pt this morning c/o L ear feeling full. She feels her breathing is better this morning. She does cough, slight about the same as it has been. General: Reports: Fatigue Constitutional: Denies: Chills, Fever ENT: Denies: Head Aches Pulmonary: Reports: Dyspnea, Cough Cardiovascular: Denies: Chest Pain, Palpitations Gastrointestinal: Denies: Nausea, Vomiting, Diarrhea Neurological: Denies: Weakness Psych: Denies: Mood Normal Objective Physical Examination General Exam: Positive: Alert, Cooperative, No Acute Distress ENT Exam: Negative: Mucous membr. moist/pink Neck Exam: Positive: Supple; Negative: JVD, Lymphadenopathy Chest Exam: Positive: Rales (bilateral bases, faint ); Negative: Rhonchi, Wheezing Heart Exam: Positive: Regular Rhythm Abdomen Exam: Positive: Normal bowel sounds, Soft; Negative: Tenderness Extremity Exam: Negative: Edema Psych Exam: Positive: Anxiety Assessment /Plan Problems (1) Fluid overload Status: Acute Problem Text: 09/22 Resp status improved, cont to monitor. 09/21 as of 09/21 + ~6600! +/- CHF (TTE P) 09/21 BNP 6493 (no previous in [place]), TTE P, gave fur 20 IV x 1 and SLIV NS 100H (2) Anemia Status: Chronic Problem Text: 09/22 Hgb 9.1, cont to monitor 09/21 10.2 09/20 8.6-partially dilutional given as of 09/21 + ~6600! vs fallacious baseline hgb 9-10 (3) Candidemia Status: Acute Problem Text: needs opthalmo check for endopthalmitis favoring transient candidemia c uro procedure 09/21/18 + fluconazole 400 IV x 1, then po (+ Wm), checking renal US, TTE 09/18 BCX2 NG 09/17 BCX2 NG 09/17/18 BCX2/2 yeast like organism (4) Pneumonia Status: Acute Problem Text: D5 levo/D2 flucon (ro held by ID) 09/21 WBC has normalized Tmax down to 100.9 Chest X-poncho IMPRESSION: Bilateral lower lung opacities concerning for pneumonic infiltrates greater on the left with additional subsegmental atelectasis retrocardiac left lower lung and right midlung. (5) Acute kidney injury superimposed on chronic kidney disease Status: Resolved Response to Treatment: Stable Problem Text: 09/21 at baseline cr 1.0 (6) Kidney stone Status: Chronic Response to Treatment: Stable Problem Text: 09/20 -- urine culture negative Patient with a laser lithotripsy and stent placement performed yesterday. Urine culture pending Plan/VTE VTE Prophylaxis Ordered?: Yes (Heparin ) VS, I&O, 24H, Fishbone Vital Signs/I&O Vital Signs Date Time Temp Pulse Resp B/P (MAP) Pulse Ox O2 Delivery O2 Flow Rate FiO2 09/22/18 06:00 97.5 73 16 121/53 (75) 96 09/21/18 14:00 2.0 09/18/18 09:00 Room Air I&O- Last 24 Hours up to 6 AM 09/22/18 06:00 Intake Total 800 ml Balance 800 ml Laboratory Data 24H LABS Laboratory Tests 2 09/21/18 16:50: Immature Granulocyte % (Auto) 1.4, White Blood Count 7.4, Red Blood Count 3.32L, Hemoglobin 10.2L, Hematocrit 31.1L, Mean Corpuscular Volume 93.7, Mean Corpuscular Hemoglobin 30.7, Mean Corpuscular Hemoglobin Concent 32.8, Red Cell Distribution Width 13.1, Platelet Count 170, Neutrophils (%) (Auto) 67.3H, Lymphocytes (%) (Auto) 18.2L, Monocytes (%) (Auto) 11.0H, Eosinophils (%) (Auto) 1.8, Basophils (%) (Auto) 0.3, Neutrophils # (Auto) 5.0, Lymphocytes # (Auto) 1.3L, Monocytes # (Auto) 0.8, Eosinophils # (Auto) 0.1, Basophils # (Auto) 0.0, Nucleated Red Blood Cells % (auto) 0.0 09/21/18 18:50: Magnesium Level 1.6L 09/22/18 06:14: Immature Granulocyte % (Auto) 1.2, White Blood Count 7.3, Red Blood Count 2.94L, Hemoglobin 9.1L, Hematocrit 27.2L, Mean Corpuscular Volume 92.5, Mean Corpuscular Hemoglobin 31.0, Mean Corpuscular Hemoglobin Concent 33.5, Red Cell Distribution Width 13.2, Platelet Count 168, Neutrophils (%) (Auto) 67.0H, Lymphocytes (%) (Auto) 19.0L, Monocytes (%) (Auto) 8.4H, Eosinophils (%) (Auto) 4.0H, Basophils (%) (Auto) 0.4, Neutrophils # (Auto) 4.9, Lymphocytes # (Auto) 1.4L, Monocytes # (Auto) 0.6, Eosinophils # (Auto) 0.3, Basophils # (Auto) 0.0, Nucleated Red Blood Cells % (auto) 0.0, Reticulocyte # (auto) 14.4L, Percent Reticulocyte Count 0.5, Reticulocyte Hemoglobin Equivalent 24.2 09/22/18 06:15: Anion Gap 8, Glomerular Filtration Rate 53.5, Blood Urea Nitrogen 17, Creatinine 1.07, Sodium Level 143, Potassium Level 3.4L, Chloride Level 110H, Carbon Dioxide Level 25, Calcium Level 7.7L, Aspartate Amino Transf (AST/SGOT) 48H, Alanine Aminotransferase (ALT/SGPT) 34, Alkaline Phosphatase 161H, Total Bilirubin 0.3, Total Protein 5.2L, Albumin 1.8L, Albumin/Globulin Ratio 0.53L CBC/BMP Laboratory Tests 09/21/18 16:50 Red Blood Count 3.32 L, Mean Corpuscular Volume 93.7, Mean Corpuscular Hemoglobi n 30.7, Mean Corpuscular Hemoglobin Concent 32.8, Red Cell Distribution Width 13.1, Neutrophils (%) (Auto) 67.3 H, Lymphocytes (%) (Auto) 18.2 L, Monocytes (%) (Auto) 11.0 H, Eosinophils (%) (Auto) 1.8, Basophils (%) (Auto) 0.3, Neutrophils # (Auto) 5.0, Lymphocytes # (Auto) 1.3 L, Monocytes # (Auto) 0.8, Eosinophils # (Auto) 0.1, Basophils # (Auto) 0.0 09/22/18 06:14 Red Blood Count 2.94 L, Mean Corpuscular Volume 92.5, Mean Corpuscular Hemoglobin 31.0, Mean Corpuscular Hemoglobin Concent 33.5, Red Cell Distribution Width 13.2, Neutrophils (%) (Auto) 67.0 H, Lymphocytes (%) (Auto) 19.0 L, Monocytes (%) (Auto) 8.4 H, Eosinophils (%) (Auto) 4.0 H, Basophils (%) (Auto) 0 .4, Neutrophils # (Auto) 4.9, Lymphocytes # (Auto) 1.4 L, Monocytes # (Auto) 0.6, Eosinophils # (Auto) 0.3, Basophils # (Auto) 0.0 09/22/18 06:15 Calcium Level 7.7 L, Aspartate Amino Transf (AST/SGOT) 48 H, Alanine Aminotransferase (ALT/SGPT) 34, Alkaline Phosphatase 161 H, Total Bilirubin 0.3, Total Protein 5.2 L, Albumin 1.8 L Microbiology Microbiology 09/19/18 Blood Culture - Preliminary, Resulted No Growth after 48 hours. All Specime... 09/19/18 Blood Culture - Preliminary, Resulted No Growth after 48 hours. All Specime... 09/18/18 Blood Culture - Preliminary, Resulted No Growth after 72 hours. All specime... 09/18/18 Blood Culture - Preliminary, Resulted No Growth after 72 hours. All specime... 09/17/18 Blood Culture - Preliminary, Resulted Yeast Like Organism 09/17/18 Blood Culture - Preliminary, Resulted Yeast Like Organism 09/17/18 Urine Culture - Final, Complete KO MORENO PA-C Sep 22, 2018 08:37
[2018-09-22] MEDS: SPIRONOLACTONE 12.5MG PER 1/2 TABLET PO SCH (08:58)
[2018-09-22] MEDS: FLUTICASONE PROP 0.05% NASAL SPRAY 16 GM (FLONASE) SCH (08:58)
[2018-09-22] MEDS: FLUCONAZOLE 100 MG TAB PO SCH (08:58)
[2018-09-22] MEDS: ASPIRIN 81 MG ENTERIC TAB PO SCH (08:58)
[2018-09-22] MEDS: oxyBUTYnin 5 MG TAB PO SCH ×5 (08:58→21:40)
[2018-09-22] MEDS: PANTOPRAZOLE 40MG TAB (PROTONIX) PO SCH (08:58)
[2018-09-22] MEDS: METOPROLOL TART 50 MG TAB PO SCH ×3 (08:59→21:40)
[2018-09-22 14:54] VITALS: BP 129/63
--- NOTE | 2018-09-22 17:21 | IPN ---
DATE: 09/22/2018 SUBJECTIVE: Patient examined at bedside. She is feeling much better today after she was started on antifungals yesterday, as well as one dose of intravenous (IV) Lasix 20 mg. She is less tremulous today and is of better spirits, and has not had any fevers today. States she has more energy and is feeling less weak. Denies any coughing, wheezing, shortness of breath today. No phlegm or sputum production, or chest discomfort. Denies any urinary complaints. CURRENT INPATIENT MEDICATIONS: Heparin, Tylenol, Advil, Zofran, Ditropan, Lopressor, Aldactone, Protonix, Flonase, aspirin, Xanax, DuoNeb, Colace, fluconazole 400 mg daily by mouth day #1 and Levaquin 750 mg every 48 hours by mouth, initially started 09/18/2018. PHYSICAL EXAMINATION: VITAL SIGNS: Temperature 97.5, pulse 73, respirations 16, blood pressure 121/53, mean arterial pressure (MAP) of 75, pulse oximetry 96% on room air. GENERAL: Resting comfortably, in no acute distress. Alert and oriented times three. Fully conversant. HEENT: Pupils equal and reactive to light and accommodation. Extraocular muscles intact. Normocephalic, atraumatic. Moist mucous membranes. No pharyngeal edema or exudates. There is some mild pharyngeal erythema, improving from yesterday. CARDIOVASCULAR: Normal S1 and S2. Rate is controlled. LUNGS: Minimal crackles in the left lower base, otherwise clear throughout. ABDOMEN: Soft, nontender, nondistended. Normal bowel sounds. SKIN: Warm, dry, pink without any lesions. NEUROLOGIC: No tremor or shaking chills today. No focal deficits or asymmetry. EXTREMITIES: 2+ radial pulses bilaterally. No peripheral edema or calf tenderness. LABORATORY: WBC 7.3, hemoglobin and hematocrit 9.1 and 27.2, platelets 168. Sodium and potassium 143 and 3.4. BUN and creatinine 17 and 1.07. NT-pro-BNP 6493. Renal ultrasound from 09/21/2018 resulted with no hydronephrosis. There is a calculus in the mid right kidney 1.3 cm in diameter and two cysts in the upper pole of the right kidney. Left ureteral stent is in place with mild left pelviectasis and a 7 mm calculus in the left renal pelvis. IMPRESSION AND PLAN: 1. Transient candidemia. Patient is feeling much improved after being started on antifungals yesterday. Continue for a total of 14 days of oral Diflucan, today being her first day. Renal ultrasound was negative for any acute abnormality besides continued nephrolithiasis, which hopefully will pass on their own. It is highly likely that her transient candidemia was secondary to her initial pyelonephritis that displaced the candidemia after her ureteral stents and lithotripsy. Her repeat blood cultures have been negative for a total of four sets, and she is overall improving. Monitor especially for any ophthalmologic abnormalities. She will require dilated eye exam for optic sequelae for candidemia. Echo is negative for any cardiac dysfunction related to this. 2. Transient fevers. Questionable community-acquired pneumonia. As the patient is not endorsing any cough today or any sputum production, her fevers may likely be also from her initial bout of candidemia. She is afebrile today, has a normal white count, and on oral Levaquin for presumed possible community-acquired pneumonia. 3. Mildly decompensated congestive heart failure (CHF). Echo reveals grade 2 diastolic dysfunction. She has bilateral rales as well as imaging with questionable infiltrate versus effusions, possible CHF. She is normally on spironolactone at home, which she may benefit from resuming. Her renal function is stable as well as her vital signs. She responded well to one dose of IV Lasix 20 mg yesterday. Consider resuming spironolactone as well, especially given her elevated BNP. 4. Asymptomatic bacteruria. Positive urinalysis (UA). However, the patient continues to be asymptomatic, does not need treatment. However, will likely require followup UA to assess her microscopic hematuria.
[2018-09-22 22:00] VITALS: BP 142/69
[2018-09-23 02:29] VITALS: BP 146/65
[2018-09-23] MEDS: HEPARIN SOD (PORCINE) 5000 UNITS/ML VIAL SC SCH (05:42)
[2018-09-23 06:00] VITALS: BP 155/68
[2018-09-23] MEDS: oxyBUTYnin 5 MG TAB PO SCH (09:00)
[2018-09-23 09:07] VITALS: BP 155/68
[2018-09-23] MEDS: PANTOPRAZOLE 40MG TAB (PROTONIX) PO SCH (09:07)
[2018-09-23] MEDS: FLUCONAZOLE 100 MG TAB PO SCH (09:07)
[2018-09-23] MEDS: SPIRONOLACTONE 12.5MG PER 1/2 TABLET PO SCH (09:07)
[2018-09-23] MEDS: METOPROLOL TART 50 MG TAB PO SCH (09:07)
[2018-09-23] MEDS: ASPIRIN 81 MG ENTERIC TAB PO SCH (09:07)
[2018-09-23] MEDS: FLUTICASONE PROP 0.05% NASAL SPRAY 16 GM (FLONASE) SCH (09:08)
[2018-09-23] MEDS ORDERED: LEVA750T7 PO (09:20)
[2018-09-23] MEDS ORDERED: FLUC10TA PO (09:20)
[2018-09-23] MEDS ORDERED: POTASSIUM CHLORIDE 10 MEQ SR TABLET PO ONE (10:00)
[2018-09-23] MEDS ORDERED: MAG SULF 1GM/100ML (MAG RUN) 1 GM in APPROPRIATE DILUENT 1 EA IV ONE (10:00)
--- NOTE | 2018-09-23 12:02 | DSES ---
DATE OF ADMISSION: 09/18/2018 DATE OF DISCHARGE: 09/23/2018 BRIEF HISTORY AND PHYSICAL The patient is a 73-year-old patient of Dr. Ahuja, who has had multiple visits to the hospital for left-sided nephrolithiasis and hydronephrosis. Most recently seen in the emergency room on September 17 for flank pain and found to have an 8 mm obstructing left ureteral stone and additional stone fragments in the left ureter, found to be septic and mild acute kidney injury from this. She was taken to the operating room for cystoscopy and a left uroscopy with laser lithotripsy, left ureteral stent placement. She went home after that procedure. She developed fevers up to 103 with chills and nausea within hours of returning home. She came back to the hospital and was admitted. Pertinent labs on admission: Sodium 137, potassium 4.2, BUN 26, creatinine 1.9, glucose 122. White count 7.7, hemoglobin 9.9, platelets 151,000. Urine did show 96 WBCs and RBCs too numerous to count. Urine culture was negative. Preliminary blood cultures on 09/17/2018 grew yeastlike organisms. Chest x-ray showed bilateral lung opacities concerning for pneumonia greater in the left with additional subsegmental atelectasis in retrograde left lower lung and right mid lung. PAST MEDICAL HISTORY: Significant for recurrent nephrolithiasis and hydronephrosis, hypertension, atrial fibrillation status post ablation, basilar artery aneurysm status post repair, subdural hematoma. HOSPITAL COURSE: The patient is admitted for transient candidemia with repeat blood cultures that were negative. This is felt to be transient and likely secondary to candidemia growing in her kidney and it was disseminated from her previous ureteral stent procedure. She was given IV Diflucan and then and then was started on oral Diflucan. She had been spiking fevers but these have resolved. Renal ultrasound was performed that showed no hydronephrosis. There is a calculus in the mid right kidney 1.3 cm, two cysts in the upper pole of the right kidney, left ureteral stent is in place with proximal end coiled in the left renal pelvis and the distal end coiled in the urinary bladder, mild left pelviectasis. There appears to be a 7 mm calculus in the left renal pelvis. She will continue on Diflucan for a total of 14 days and followup with Dr. Burk as an outpatient. The patient will have dilated eye exam for optic sequela of candidemia. She has had an echo in the hospital, which currently shows normal left ventricular size with preserved left ventricular systolic function and grade 2 diastolic dysfunction, mild degenerative abnormalities of the aorta and mitral valves but without significant stenosis, mild insufficiency of both, mild tricuspid and pulmonic insufficiency, likely normal central venous pressure, moderate pulmonary hypertension, small posterior relocated pericardial effusion. No visualized a vegetations. Community-acquired pneumonia. She is now on Levaquin and will complete a 10-day course of Levaquin. She is getting this every 48 hours due to her renal insufficiency and is no longer spiking fevers and has no cough or significant shortness of breath. Mild decompensated congestive heart failure. She has grade 2 diastolic dysfunction per her echo, this is acute diastolic congestive heart failure, likely secondary to fluid overload from significant IV fluid resuscitation. She responded to a single dose of IV Lasix 20 mg and diuresed well with this. Respiratory status is stable. Lungs are clear. She will continue her usual spironolactone as an outpatient. Asymptomatic bacteremia. Urine culture was negative. She does have quite a lot of red blood cells, probably related to recent ureteral stent. Atrial fibrillation. She remains on her usual medications, rate remains controlled. DISPOSITION: She is stable for discharge home to followup with Dr. Ahuja next week. Followup with Dr. Burk per her office. She needs an ophthalmologic evaluation for sequela of her bacterial candidiasis. MEDICATIONS: - Diflucan 400 mg daily for 13 days - Levaquin 750 mg every 48 hours for four more days to complete a 10-day course - acebutolol 200 mg at bedtime - acetaminophen 500 mg 2 tablets every 6 hours as needed for headache her pain - aspirin 81 mg daily - Premarin 0.625 mg at bedtime - fluticasone 2 sprays for nostril daily - ibuprofen 200 mg every 6 hours as needed for pain - oxybutynin 5 mg three times - pantoprazole 40 mg daily - ranitidine 1 tablet at bedtime - spironolactone 12.5 mg daily DISCHARGE DIAGNOSES: 1. Transient candidemia. 2. Community-acquired pneumonia. 3. Acute diastolic congestive heart failure secondary to fluid overload. 5. Asymptomatic bacteruria. 6. Atrial fibrillation. edited: 09/24/2018 0720 rich RICHARD
[2018-09-24] MEDS ORDERED: LevoFLOXacin 750 MG TABLET PO SCH (06:00)
== END 2018-09-23 13:25 | disposition home or self-care (01) | DRG 862 ==
LOC: M ED 22:21 → M ED INP 09-18 05:58 → M MS5PR 09-18 14:10
PROVIDERS: ADMIT Student in an Organized Health Care Education/Training Program; ATTEND Family Medicine
DX: T81.40XA Infection following a procedure, unspecified, initial encounter (principal); B37.7 Candidal sepsis; J18.9 Pneumonia, unspecified organism; I50.33 Acute on chronic diastolic (congestive) heart failure; N17.9 Acute kidney failure, unspecified; I13.0 Hypertensive heart and chronic kidney disease with heart failure and stage 1 through stage 4 chronic kidney disease, or unspecified chronic kidney disease; I48.91 Unspecified atrial fibrillation; Z87.442 Personal history of urinary calculi; Z79.82 Long term (current) use of aspirin; Z79.899 Other long term (current) drug therapy; Z88.2 Allergy status to sulfonamides; Z88.1 Allergy status to other antibiotic agents; Z88.8 Allergy status to other drugs, medicaments and biological substances; Z88.5 Allergy status to narcotic agent; N18.9 Chronic kidney disease, unspecified; D64.9 Anemia, unspecified; Y83.8 Other surgical procedures as the cause of abnormal reaction of the patient, or of later complication, without mention of misadventure at the time of the procedure

== ENCOUNTER → 2018-09-25 | Outpatient (CLI) | payer MEDICARE ==
[~2018-09-25] MED LIST changes: +DITR5TAB PO; +FLUC10TA PO; +LEVA750T7 PO; +OXYB5TAB10 PO
--- NOTE | 2018-09-25 11:55 | REP ---
KUB: Single view. History: Kidney stones. Comparison study: September 04, 2018. Findings: A marked levoconvex lumbar scoliosis is noted. A double pigtail ureteral stent is noted in place on the left. Bowel gas pattern is normal. These findings are unchanged from the September 04, 2018 study. There are calcific opacities superimposed on the kidneys bilaterally as before. No definite calculus is seen along the course of the stent. Recent CT study shows bilateral intrarenal nephrolithiasis and a proximal ureteral calculus on the left. Electronically Signed by Pastor Moore MD 09/25/2018 11:46 A
== END ==
LOC: M SMT 10:13
PROVIDERS: ATTEND Urology
DX: Z87.442 Personal history of urinary calculi (principal)

== ENCOUNTER → 2018-10-01 | Outpatient (REF) | payer MEDICARE ==
[2018-10-01 12:44] LABS: BASO # 0.1 10^3/uL (0.0-0.2); BASO % 0.9 % (0.0-1.0); EOS # 0.2 10^3/uL (0.0-0.50); EOS % 3.4 % (0.0-3.0); HEMATOCRIT 37.3 % (36.0-47.0); HEMOGLOBIN 11.8 g/dl (12.0-15.5); LYMPH # 2.1 10^3/uL (1.5-4.5); LYMPH % 32.2 % (24.0-44.0); MEAN CORPUSCULAR HEMOGLOBIN 30.6 pg (27.0-33.0); MEAN CORPUSCULAR HGB CONC 31.6 g/dl (32.0-36.5); MEAN CORPUSCULAR VOLUME 96.6 fl (80.0-96.0); MONO # 0.5 10^3/uL (0.0-0.8); MONO % 7.8 % (0.0-5.0); NEUTROPHILS # 3.6 10^3/uL (1.8-7.7); NEUTROPHILS % 54.8 % (36.0-66.0); PLATELET COUNT, AUTOMATED 418 10^3/uL (150-450); RED BLOOD COUNT 3.86 10^6/uL (4.00-5.40); WHITE BLOOD COUNT 6.6 10^3/uL (4.0-10.0)
[2018-10-01 12:53] LABS: ALBUMIN 3.4 GM/DL (3.2-5.2); BILIRUBIN,TOTAL 0.4 MG/DL (0.2-1.0); C REACTIVE PROTEIN QUANTITATIV 0.3 MG/DL (0.00-0.30); CALCIUM LEVEL 9.3 MG/DL (8.8-10.2); CREATININE FOR GFR 1.35 MG/DL (0.55-1.30); GLOMERULAR FILTRATION RATE 40.9 (>39); TOTAL PROTEIN 7.5 GM/DL (6.4-8.2)
[2018-10-01 13:21] LABS: ERYTHROCYTE SEDIMENTATION RATE 52 mm/hr (0-30)
== END ==
LOC: M SFHCPLAZ 09:01
PROVIDERS: ATTEND Internal Medicine Infectious Disease
DX: B37.7 Candidal sepsis (principal)
CPT/HCPCS: 36415; 80053; 85025; 85652; 86140; G0463

== ENCOUNTER → 2018-10-05 | Outpatient (REF) | payer MEDICARE ==
[2018-10-05 19:33] LABS: BASO # 0.1 10^3/uL (0.0-0.2); BASO % 1.3 % (0.0-1.0); EOS # 0.3 10^3/uL (0.0-0.50); EOS % 3.4 % (0.0-3.0); HEMATOCRIT 36.5 % (36.0-47.0); HEMOGLOBIN 11.6 g/dl (12.0-15.5); LYMPH # 2.2 10^3/uL (1.5-4.5); LYMPH % 23.4 % (24.0-44.0); MEAN CORPUSCULAR HEMOGLOBIN 29.8 pg (27.0-33.0); MEAN CORPUSCULAR HGB CONC 31.8 g/dl (32.0-36.5); MEAN CORPUSCULAR VOLUME 93.8 fl (80.0-96.0); MONO # 0.7 10^3/uL (0.0-0.8); MONO % 7.2 % (0.0-5.0); NEUTROPHILS # 5.9 10^3/uL (1.8-7.7); NEUTROPHILS % 64.4 % (36.0-66.0); PLATELET COUNT, AUTOMATED 511 10^3/uL (150-450); RED BLOOD COUNT 3.89 10^6/uL (4.00-5.40); WHITE BLOOD COUNT 9.2 10^3/uL (4.0-10.0)
[2018-10-05 19:39] LABS: ALBUMIN 3.5 GM/DL (3.2-5.2); BILIRUBIN,TOTAL 0.3 MG/DL (0.2-1.0); CALCIUM LEVEL 9.6 MG/DL (8.8-10.2); CREATININE FOR GFR 1.4 MG/DL (0.55-1.30); GLOMERULAR FILTRATION RATE 39.2 (>39); POTASSIUM SERUM 4.9 MEQ/L (3.5-5.1); TOTAL PROTEIN 7.7 GM/DL (6.4-8.2)
== END ==
LOC: M SFHCPLAZ 13:33 → M SFHCADAM 13:38
PROVIDERS: ATTEND Internal Medicine Infectious Disease
DX: N17.9 Acute kidney failure, unspecified (principal); R19.7 Diarrhea, unspecified

== ENCOUNTER 2018-10-06 13:16 | Inpatient (IN) | payer MEDICARE ==
[~2018-10-06] VITALS: Ht 165.1 cm; Wt 54.1 kg
[2018-10-06 14:38] VITALS: BP 110/60
[2018-10-06 15:19] LABS: HEMATOCRIT 36.7 % (36.0-47.0); HEMOGLOBIN 12.1 g/dl (12.0-15.5); MEAN CORPUSCULAR HEMOGLOBIN 30.5 pg (27.0-33.0); MEAN CORPUSCULAR VOLUME 92.4 fl (80.0-96.0); PLATELET COUNT, AUTOMATED 440 10^3/uL (150-450); RED BLOOD COUNT 3.97 10^6/uL (4.00-5.40); WHITE BLOOD COUNT 7.9 10^3/uL (4.0-10.0)
[2018-10-06] MEDS: NS 1,000 ML IV SCH (15:40)
[2018-10-06 15:41] LABS: ALBUMIN 3.6 GM/DL (3.2-5.2); BILIRUBIN,TOTAL 0.3 MG/DL (0.2-1.0); CALCIUM LEVEL 9.5 MG/DL (8.8-10.2); CREATININE FOR GFR 1.39 MG/DL (0.55-1.30); GLOMERULAR FILTRATION RATE 39.6 (>39); POTASSIUM SERUM 4.6 MEQ/L (3.5-5.1); TOTAL PROTEIN 7.8 GM/DL (6.4-8.2)
--- NOTE | 2018-10-06 15:49 | REP ---
CT of the abdomen pelvis without IV or bowel contrast: Comparison is 09/17/2018. There are multiple bilateral nonobstructive renal calculi. These are unchanged. The previous left hydronephrosis has resolved. The previous left pararenal stranding has resolved. The previous multiple left ureteral calculi are no longer present. There are no bladder calculi. There are a few small hypodense cyst in the right renal upper pole, unchanged. The visualized lower lung dominguez demonstrate minor atelectasis inferiorly in the lingula. A pectus excavatum deformity of the sternum is again identified. Lumbar spine scoliosis convex left is again identified. The unenhanced hepatic parenchyma is homogeneous and unremarkable. The gallbladder, pancreas, spleen and adrenals are unremarkable. Abdominal aorta is unremarkable. There is no bowel distension. Mesentery is unremarkable. There is sigmoid colon diverticulosis. Mild pericolonic stranding is again identified adjacent to the sigmoid colon. There is no focal fluid collection to suggest abscess. There is no pneumoperitoneum. The stranding is nonspecific and could represent a chronic change secondary to the diverticulosis or could represent mild diverticulitis. It is unchanged from the prior study. Pelvis: The the patient reportedly has an appendectomy. There is a hysterectomy. Vaginal cuff and adnexa are unremarkable. The bladder is nondistended and cannot be evaluated. There is no ascites or adenopathy. Impression: The the previously identified left ureteral obstructing calculi in left hydronephrosis have resolved. The previous left perinephric stranding has resolved. There is diverticulosis. There is mild pericolonic stranding, unchanged from the prior study. This is nonspecific and could be evidence of chronic change secondary to the diverticulosis or could represent mild diverticulitis. There is no pericolonic abscess to suggest perforation. There is no pneumoperitoneum or ascites. Right renal cysts are unchanged. Pectus excavatum and lumbar scoliosis convex left, are unchanged. Electronically Signed by Jose De Jesus Reeves MD 10/06/2018 03:41 P
--- NOTE | 2018-10-06 17:57 | CR ---
DATE OF CONSULTATION: 10/06/2018 REASON FOR CONSULTATION: Diarrhea with abdominal cramps in a patient who recently has been treated with candidemia. 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 This was associated with flank pain and shortness of breath. The patient had Gladis glabrata positive blood cultures and do was started on September 17 she was started on fluconazole 400 mg IV daily on September 21 and was supposed to finish antibiotics after 14 days which would have been October 05. The patient has developed a day and severe diarrhea for the past couple days and has not taking her fluconazole thinking it was related. She had a GI panel done yesterday which was negative for any pathogens as well as C diff. The patient had at least six bowel movements overnight she felt dehydrated and terrible very weak has continued to lose weight and therefore called my office. I discussed the case with Dr. Ahuja who decided to admit her directly from the office. PAST MEDICAL HISTORY: Significant for recurrent nephrolithiasis status post lithotripsy with stent placement that was recently placed on in early September and was removed. History of hypertension, atrial fibrillation status-post ablation, basilar artery aneurysm status post repair subdural hematoma traumatic. PAST SURGICAL HISTORY: Basilar artery aneurysm repair, subdural hematoma evacuation, cardiac ablation, right knee surgery, renal stent placed and lithotripsy. SOCIAL HISTORY: She denies any smoking, illicit drug use. She drinks alcohol occasionally. 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 FAMILY HISTORY: Kidney stone, atrial fibrillation, a mother with dementia. ALLERGIES: Sulfa, cephalosporins, vitamin D, erythromycin, minocycline, montelukast, morphine, tramadol. REVIEW OF SYSTEMS: She denies any dysuria, hematuria. She does have abdominal pain but mostly crampy with diarrhea and no fever or chills. She feels weak, dehydrated. No cough or shortness of breath. LABORATORY DATA: White count 7.9, hemoglobin 12.1, hematocrit 36.7, platelets 440. Sodium 137, potassium 4.6, chloride 104, bicarb 27, BUN 22, creatinine 1.39 which has increased from discharge at 1.07, glucose 95, calcium 9.5, AST 19, ALT 17, alk phos 114, total protein 7.8, albumin 3.65. Blood cultures two sets have been ordered on 10/06 were pending. GI panel done on 10/[address] abdomen and pelvis done on October 06. Shows appendectomy, hysterectomy. Bladder is not distended, no ascites or adenopathy left ureteral obstructing calculus in the left and hydronephrosis have resolved. There is some concern of some pericolonic stranding in but no perforation, possibly mild diverticulitis. PHYSICAL EXAMINATION: She is a frail female in no acute distress. Temperature is 97.7, pulse 73, respirations 20, blood pressure 110/60, O2 sat 97% on room air. Heart: Normal S1-S2. No murmurs, rubs or gallops. Lungs are clear. No wheezes, rales or rhonchi. Abdomen: Soft, mildly tender in the lower quadrant. No hepatosplenomegaly, no rebound. Back: No CVA or lumbosacral tenderness. Extremities: No clubbing, cyanosis or edema. No calf tenderness. Oropharynx slightly dehydrated. No lesions. IMPRESSION: This is a 73-year-old female with candidemia from status post lithotripsy probably of urinary origin with gladis gallbladder treated with 12 days of fluconazole now presents with severe diarrhea and dehydration. GI panel was negative. My suspicion was she developed C difficile from levofloxacin that was given to her in the hospital for presumptive pneumonia. PLAN: 1. Start with IV fluids for dehydration. 2. Discontinue fluconazole may be the cause of her diarrhea. Switch her to IV micafungin 100 mg daily for an total of for total of two doses which should make for the dose as she has missed to finish her 14 days course of therapy. Repeat stool for C diff as I am convinced this is C difficile. The patient stated has a foul smell depending on results of stool testing consider adding vancomycin if appropriate. Otherwise the hydration. A CT of the abdomen shows a questionable diverticulitis, although clinically this does not look like diverticulitis to me. Case has been discussed with Dr. Ahuja.
[2018-10-06] MEDS: MICAFUNGIN SODIUM 100 MG in D5W MINI-BAG PLUS 100 ML IV SCH (17:59)
[2018-10-06 18:00] VITALS: BP 138/60
[2018-10-06 22:00] VITALS: BP 125/60
[2018-10-06] MEDS ORDERED: ONDANSETRON 4MG/2ML VIAL (J2405) IV PRN (22:00)
[2018-10-07] MEDS: NS 1,000 ML IV SCH ×4 (00:24→20:37)
[2018-10-07 02:00] VITALS: BP 136/63
[2018-10-07 06:00] VITALS: BP 151/70
[2018-10-07 06:33] LABS: HEMATOCRIT 30.7 % (36.0-47.0); MEAN CORPUSCULAR HEMOGLOBIN 29.6 pg (27.0-33.0); MEAN CORPUSCULAR HGB CONC 32.2 g/dl (32.0-36.5); MEAN CORPUSCULAR VOLUME 91.9 fl (80.0-96.0); RED BLOOD COUNT 3.34 10^6/uL (4.00-5.40); WHITE BLOOD COUNT 5.1 10^3/uL (4.0-10.0)
[2018-10-07 06:56] LABS: HEMOGLOBIN 9.9 g/dl (12.0-15.5); PLATELET COUNT, AUTOMATED 332 10^3/uL (150-450)
[2018-10-07 07:01] LABS: CALCIUM LEVEL 8.2 MG/DL (8.8-10.2); CREATININE FOR GFR 1.19 MG/DL (0.55-1.30); GLOMERULAR FILTRATION RATE 47.3 (>39); POTASSIUM SERUM 4.2 MEQ/L (3.5-5.1)
[2018-10-07 10:00] VITALS: BP 144/64
[2018-10-07 14:00] VITALS: BP 167/70
[2018-10-07] MEDS: PANTOPRAZOLE 40MG TAB (PROTONIX) PO SCH (14:17)
[2018-10-07] MEDS: LACTOBACILLUS ACIDOPHILUS CAP (BACID) PO SCH ×2 (14:17→16:46)
[2018-10-07] MEDS: ASPIRIN 81 MG ENTERIC TAB PO SCH (14:18)
[2018-10-07] MEDS: MICAFUNGIN SODIUM 100 MG in D5W MINI-BAG PLUS 100 ML IV SCH (16:46)
[2018-10-07 18:00] VITALS: BP 130/60
[2018-10-07] MEDS ORDERED: LACTOBACILLUS ACIDOPHILUS CAP (BACID) PO SCH (18:00)
[2018-10-07 22:00] VITALS: BP 145/66
[2018-10-08] MEDS: NS 1,000 ML IV SCH (05:01)
[2018-10-08 06:00] VITALS: BP 130/63
[2018-10-08 06:31] LABS: HEMATOCRIT 31.5 % (36.0-47.0); HEMOGLOBIN 10.3 g/dl (12.0-15.5); MEAN CORPUSCULAR HEMOGLOBIN 30.6 pg (27.0-33.0); MEAN CORPUSCULAR HGB CONC 32.7 g/dl (32.0-36.5); MEAN CORPUSCULAR VOLUME 93.5 fl (80.0-96.0); PLATELET COUNT, AUTOMATED 281 10^3/uL (150-450); RED BLOOD COUNT 3.37 10^6/uL (4.00-5.40); WHITE BLOOD COUNT 4.2 10^3/uL (4.0-10.0)
[2018-10-08 06:58] LABS: BLOOD UREA NITROGEN 9 MG/DL (7-18); CALCIUM LEVEL 8.3 MG/DL (8.8-10.2); CARBON DIOXIDE LEVEL 25 MEQ/L (21-32); CHLORIDE LEVEL 110 MEQ/L (98-107); CREATININE FOR GFR 0.89 MG/DL (0.55-1.30); GLOMERULAR FILTRATION RATE > 60.0 (>39); GLUCOSE, FASTING 100 MG/DL (70-100); POTASSIUM SERUM 3.5 MEQ/L (3.5-5.1); SODIUM LEVEL 142 MEQ/L (136-145)
[2018-10-08] MEDS: LACTOBACILLUS ACIDOPHILUS CAP (BACID) PO SCH (08:00)
[2018-10-08] MEDS: PANTOPRAZOLE 40MG TAB (PROTONIX) PO SCH (08:47)
[2018-10-08] MEDS: ASPIRIN 81 MG ENTERIC TAB PO SCH (08:47)
[2018-10-08 10:00] VITALS: BP 162/72
--- NOTE | 2018-10-08 11:21 | DSES ---
DATE OF ADMISSION: 10/06/2018 DATE OF DISCHARGE: 10/08/18 PRIMARY CARE PHYSICIAN: Dr. Aditya Ahuja CONSULTANTS: Dr. Waqar Burk HISTORY: This is a 73-year-old female, a patient who presented to [facility] who developed severe diarrhea for the couple of days prior to her presentation. She had not taken fluconazole thinking it was related. She had a GI panel done the day prior which was negative for any pathogens, including Clostridium difficile. She had at least 6 bowel movements overnight. She felt she was dehydrated and was terribly weak. She continued to lose weight. Therefore, she was seen by Dr. Ahuja at [facility]. He admitted her to the hospital for IV fluids. Oral fluconazole was discontinued and the patient was switched to oral micafungin 100 mg daily for a total of 2 doses which would make for the doses she had missed to finish her 14 days of therapy. Repeat Clostridium difficile was obtained and was negative. The patient had resolution of her loose stools during admission. She is now passing small pieces of soft stool according to the patient, although these have been unwitnessed by staff. She does complain of some cramping associated with passing of the small stool, though it resolves after she has had a bowel movement. She feels steady on her feet. She is eager to return home. She plans on returning to the home of her son, at least through the weekend, at which time, he will evaluate how he feels she is doing and decide when she will return to the area. She does have an outpatient appointment set up with Dr. Burk on 10/20/2018 and I have encouraged her to continue to plan to attend that appointment. She has had followup blood cultures that at this point are without any growth. She has had a urine culture that is also without any clinically significant growth. Again, she has had two GI panels and these both have been negative. DISCHARGE DIAGNOSES: Candidemia status post lithotripsy probably from urinary origin with Gladis of the bladder treated with 12 days of fluconazole, now with diarrhea and dehydration. DISCHARGE MEDICATIONS: - acebutolol 200 mg by mouth at bedtime - acetaminophen 1000 mg by mouth every 6 hours as needed for headache or pain - aspirin 81 mg daily - Premarin 0.625 mg by mouth at bedtime - fluticasone 2 sprays intranasally daily - ibuprofen 200 mg every 6 hours as needed for pain - Protonix 40 mg daily - ranitidine 150 mg by mouth at bedtime - Spironolactone 12.5 mg by mouth daily DISCHARGE PLAN: To discharge home today. She will have followup with Dr. Burk on 10/20/[address] Ahuja in one week. Her activity should be as tolerated. Her diet is regular. [facility]
[2018-10-08] MEDS ORDERED: ACEBUTOLOL 200 MG PO SCH ×2 (21:00)
== END 2018-10-08 12:25 | disposition home or self-care (01) | DRG 393 ==
LOC: M MSPAV 14:19
PROVIDERS: ADMIT Family Medicine; ATTEND Family Medicine
DX: K52.1 Toxic gastroenteritis and colitis (principal); B37.7 Candidal sepsis; N17.9 Acute kidney failure, unspecified; I10 Essential (primary) hypertension; Z87.828 Personal history of other (healed) physical injury and trauma; E86.0 Dehydration; Z79.82 Long term (current) use of aspirin; Z79.899 Other long term (current) drug therapy; I48.91 Unspecified atrial fibrillation; Z88.2 Allergy status to sulfonamides; Z88.5 Allergy status to narcotic agent; Z88.8 Allergy status to other drugs, medicaments and biological substances

== ENCOUNTER → 2019-02-12 | Outpatient (REF) | payer MEDICARE ==
[~2019-02-12] MED LIST changes: -IBUP-1093 PO; +IBUP-1730 PO; +RANI-356 PO; -RANI1TAB6 PO
[2019-02-12 15:56] LABS: APPEARANCE, URINE CLOUDY (CLEAR); BACTERIA, URINE AUTO 2+ (NEGATIVE); BILIRUBIN, URINE AUTO NEGATIVE (NEGATIVE); BLOOD, URINE BLOOD NEGATIVE (NEGATIVE); COLOR, URINE YELLOW (YELLOW); GLUCOSE, URINE (UA) AUTO NEGATIVE (NEGATIVE); KETONE, URINE AUTO NEGATIVE (NEGATIVE); LEUKOCYTE ESTERASE, URINE AUTO 2+ (NEGATIVE); MUCUS, URINE SMALL (NEGATIVE); NITRITE, URINE AUTO NEGATIVE (NEGATIVE); PROTEIN, URINE AUTO NEGATIVE (NEGATIVE); RBC, URINE AUTO 7 /HPF (0-3); SPECIFIC GRAVITY URINE AUTO 1.015 (1.002-1.035); SQUAMOUS EPITHELIAL CELL UR AU 1 /HPF (0-6); WBC, URINE AUTO 132 /HPF (0-3)
== END ==
LOC: M LAB REF 15:44
PROVIDERS: ATTEND Physician Assistant
DX: N39.0 Urinary tract infection, site not specified (principal); M54.9 Dorsalgia, unspecified

== ENCOUNTER → 2019-02-15 | Outpatient (CLI) | payer MEDICARE ==
[~2019-02-15] MED LIST changes: +LIDOCAINE 1% MDV 20ML VIAL As Ordered ONE
[2019-02-15 11:12] VITALS: BP 158/70
--- NOTE | 2019-02-15 17:34 | REP ---
Ultrasound-guided right thyroid biopsy The procedure was performed under the direct supervision of Dr. Moore. The patient has a history of an 8.7 x 6.8 x 0.9 mm hypoechoic nodule in the right anterior mid pole thyroid seen on a previous ultrasound dated 06/10/2018. This was biopsied on 08/12/2018, however, the specimens were unsatisfactory for evaluation. The the patient was then referred for rebiopsy. The risks and benefits of the procedure were explained to the patient and informed consent was obtained. The right thyroid nodule was localized using ultrasound guidance. The skin was prepped and draped in a sterile fashion. 1% lidocaine was used as a local anesthetic. Using ultrasound guidance six fine-needle aspirations were obtained using 25 gauge needles. The patient tolerated the procedure well and there were no immediate complications. After the appropriate amount of monitored convalescence the patient was discharged from the department. Electronically Signed by ALBINA Tidwell 02/15/2019 03:06 P Electronically Signed by Pastor Moore MD 02/15/2019 05:26 P
== END ==
LOC: M IRPRO 10:06
PROVIDERS: ATTEND Specialist
DX: E04.1 Nontoxic single thyroid nodule (principal)

== ENCOUNTER → 2019-03-05 | Outpatient (REF) | payer MEDICARE ==
[~2019-03-05] MED LIST changes: -LIDOCAINE 1% MDV 20ML VIAL As Ordered ONE
== END ==
LOC: M LAB REF 16:03
PROVIDERS: ATTEND Physician Assistant
DX: N39.0 Urinary tract infection, site not specified (principal)

== ENCOUNTER → 2019-05-20 | Outpatient (CLI) | payer MEDICARE ==
[~2019-05-20] MED LIST changes: -MECL-68 PO; +MECL1TAB31 PO; -RANI-356 PO; +RANI-397 PO; +[UNRECOGNIZED DRUG - CODE]; -[UNRECOGNIZED DRUG - CODE]; +[UNRECOGNIZED DRUG - CODE] PO; -[UNRECOGNIZED DRUG - CODE] PO
--- NOTE | 2019-05-20 14:27 | REPMRS ---
Patient History No known family history of cancer. Benign excisional biopsy of the right breast, 1990. 5 benign FNA biopsies of both breasts. Taking unspecified hormones for 35 years beginning at age 37. Digital Woman Screen Mammo: May 20, 2019 - Exam #: [id number] Bilateral CC and MLO view(s) were taken. Technologist: Richelle Heller, Technologist Prior study comparison: April 30, 2018, bilateral digital woman screen mammo performed at [facility] and [facility], [place]. FINDINGS: The breast tissue is heterogeneously dense. This may lower the sensitivity of mammography. There are widely dispersed calcifications in dense breast stroma bilaterally unchanged. Less tissue is included in the field of view for the right MLO view related to patient's small size. There is a moderate amount of heterogeneously dense fibroglandular tissue which is fairly symmetric. There is no interval development of dominant mass, architectural distortion, or grouped microcalcification typical of malignancy. There has been no change in the appearance of the mammogram from the prior studies. 3-D tomosynthesis shows no additional findings. Assessment: BI-RADS/ACR category 1 mammogram. Negative Mammogram. Recommendation Routine screening mammogram of both breasts in 1 year (for women over age 40). This patient's Lifetime Breast Cancer RIsk is estimated at 2.4 %. This mammogram was interpreted with the aid of an FDA-approved computer-aided dectection system. Electronically Signed By: Krish Moore MD 05/20/19 [id number]
== END ==
LOC: M WHC 13:18
PROVIDERS: ATTEND Family Medicine
DX: Z12.31 Encounter for screening mammogram for malignant neoplasm of breast (principal)

== ENCOUNTER → 2019-11-04 | Outpatient (REF) | payer MEDICARE ==
[~2019-11-04] MED LIST changes: +PANT40TA29; +PANT40TA29 PO; -PANT40TA3; -PANT40TA3 PO
== END ==
LOC: M SFHCADAM 08:14
PROVIDERS: ATTEND Family Medicine
DX: I72.5 Aneurysm of other precerebral arteries (principal); I11.9 Hypertensive heart disease without heart failure; E04.1 Nontoxic single thyroid nodule; E78.5 Hyperlipidemia, unspecified

== ENCOUNTER → 2019-11-04 | Outpatient (CLI) | payer MEDICARE ==
--- NOTE | 2019-11-04 09:11 | REP ---
Acute abdominal series: Three views. History: Left lower quadrant abdominal tenderness. Comparison study: September 25, 2018. Findings: Upright views of the chest and abdomen demonstrate a moderate S-shaped thoracolumbar scoliosis unchanged. The lungs are well inflated and free of infiltrate. There is no evidence of free subdiaphragmatic air. Heart is not enlarged. Supine and erect views of the abdomen show a normal bowel gas pattern with air and stool in a nondistended colon. No large or small bowel dilation is seen. Psoas margins and flank stripes are intact. No mass organomegaly or pathologic calcification is seen. Impression: Moderate thoracolumbar scoliosis and degenerative spondylosis changes again noted. Otherwise no acute abnormality. Electronically Signed by Pastor Moore MD 11/04/2019 09:03 A
== END ==
LOC: M ADAMS 08:33
PROVIDERS: ATTEND Physician Assistant
DX: R10.814 Left lower quadrant abdominal tenderness (principal); M41.35 Thoracogenic scoliosis, thoracolumbar region; M47.812 Spondylosis without myelopathy or radiculopathy, cervical region; I72.5 Aneurysm of other precerebral arteries; I11.9 Hypertensive heart disease without heart failure; E04.1 Nontoxic single thyroid nodule; E78.5 Hyperlipidemia, unspecified

== ENCOUNTER → 2020-01-03 | Outpatient (CLI) | payer MEDICARE ==
--- NOTE | 2020-01-12 07:55 | REP ---
THYROID ULTRASOUND HISTORY: Thyroid nodule. History of two negative biopsies. TECHNIQUE: Real-time sonographic evaluation of the thyroid is performed. FINDINGS: Both lobes are relatively normal in size, right lobe measuring 3.7 x 1.4 x 1.5 cm and the left lobe 3.7 x 0.8 x 1.0 cm. A hypoechoic and hyperechoic mixed echogenicity nodule is again seen in the upper pole of the right lobe measuring 10 x 6 x 8 mm essentially unchanged compared to the prior exam of 06/10/2018. There is an adjacent nonsuspicious hypoechoic nodule measuring 4 x 3 x 3 mm. No other cystic or solid nodule is seen bilaterally. IMPRESSION: Stable nodule right upper pole as discussed above with maximum diameter 10 mm. There is an adjacent nonsuspicious 4 mm hypoechoic nodule in the right lobe. [facility]
== END ==
LOC: M RAD 13:20
PROVIDERS: ATTEND Specialist
DX: E04.1 Nontoxic single thyroid nodule (principal)

== ENCOUNTER → 2020-06-30 | Outpatient (CLI) | payer MEDICARE ==
--- NOTE | 2020-06-30 12:21 | REPMRS ---
Patient History The patient states she has not had a clinical breast exam in over a year. Patient is postmenopausal. No known family history of cancer. Benign excisional biopsy of the right breast, 1991. 5 benign FNA biopsies of both breasts. Taking unspecified hormones for 35 years beginning at age 37. Digital Woman Screen Mammo: June 30, 2020 - Exam #: [id number] Bilateral MLO and CC view(s) were taken. LMO view(s) were taken of the right breast. Technologist: Vesna Winter, Technologist Prior study comparison: May 20, 2019, bilateral digital woman screen mammo performed at [facility]. April 30, 2018, bilateral digital woman screen mammo performed at [facility][1]. June 12, 2016, bilateral digital woman screen mammo, performed at [facility]. FINDINGS: The breast tissue is extremely dense which could obscure a lesion on mammography. The [place] volumetric breast density category is: D. There is an extremely dense symmetrical pattern of residual fibroglandular tissue. There has been no change in the appearance of the mammogram from the previous studies. There is no interval development of dominant mass, archetectural distortion, or grouped microcalcifications suggestive of malignancy. 3-D tomosynthesis shows no additional findings. Assessment: BI-RADS/ACR category 1 mammogram. Negative Mammogram. Recommendation Routine screening mammogram of both breasts in 1 year (for women over age 40). This patient's [facility] Lifetime Breast Cancer RIsk is estimated at 2.3 %. This mammogram was interpreted with the aid of an FDA-approved computer-aided dectection system. Electronically Signed By: Krish Moore MD 06/30/20 0348
== END ==
LOC: M WHC 10:53
PROVIDERS: ATTEND Family Medicine
DX: Z12.31 Encounter for screening mammogram for malignant neoplasm of breast (principal)

== ENCOUNTER → 2020-09-06 | Outpatient (REF) | payer MEDICARE ==
[2020-09-06 12:51] LABS: BASO # 0.1 10^3/uL (0.0-0.2); BASO % 1.1 % (0.0-1.0); EOS # 0.2 10^3/uL (0.0-0.5); EOS % 3.1 % (0.0-3.0); HEMATOCRIT 38.5 % (36.0-47.0); HEMOGLOBIN 12.5 g/dl (12.0-15.5); LYMPH # 2.3 10^3/uL (1.5-5.0); LYMPH % 35.3 % (24.0-44.0); MEAN CORPUSCULAR HEMOGLOBIN 30.7 pg (27.0-33.0); MEAN CORPUSCULAR HGB CONC 32.5 g/dl (32.0-36.5); MEAN CORPUSCULAR VOLUME 94.6 fl (80.0-96.0); MONO # 0.5 10^3/uL (0.0-0.8); MONO % 7.6 % (2.0-8.0); NEUTROPHILS # 3.4 10^3/uL (1.5-8.5); NEUTROPHILS % 52.6 % (36.0-66.0); PLATELET COUNT, AUTOMATED 262 10^3/uL (150-450); RED BLOOD COUNT 4.07 10^6/uL (4.00-5.40); WHITE BLOOD COUNT 6.5 10^3/uL (4.0-10.0)
[2020-09-06 13:01] LABS: INR 0.94; PROTHROMBIN TIME 12.8 SECONDS (12.5-14.3)
[2020-09-06 13:46] LABS: ALBUMIN 3.3 GM/DL (3.2-5.2); ALT/SGPT 19 U/L (12-78); BILIRUBIN,TOTAL 0.4 MG/DL (0.2-1.0); BLOOD UREA NITROGEN 21 MG/DL (7-18); CARBON DIOXIDE LEVEL 27 MEQ/L (21-32); CHLORIDE LEVEL 106 MEQ/L (98-107); CHOLESTEROL LEVEL 188 MG/DL (<200); CHOLESTEROL RISK RATIO 5.371 (<5); CREATININE FOR GFR 0.94 MG/DL (0.55-1.30); GLOMERULAR FILTRATION RATE > 60.0 (>39); GLUCOSE, FASTING 92 MG/DL (70-100); HDL CHOLESTEROL 35 MG/DL (>40); NON-HDL-C 153 MG/DL; POTASSIUM SERUM 4.5 MEQ/L (3.5-5.1); SODIUM LEVEL 139 MEQ/L (136-145); TOTAL PROTEIN 6.8 GM/DL (6.4-8.2); TRIGLYCERIDES LEVEL 637 MG/DL (<150)
== END ==
LOC: M SFHCADAM 07:55
PROVIDERS: ATTEND Family Medicine
DX: R23.3 Spontaneous ecchymoses (principal); E78.5 Hyperlipidemia, unspecified

== ENCOUNTER → 2020-10-12 | Outpatient (REF) | payer MEDICARE ==
[~2020-10-12] MED LIST changes: +ALLE4TAB11 PO; +ECOT81TA5 PO; +FLUTISP NARES; +NUCY50TA19 PO; +ONDA8TAB8 PO; +VALA1TAB5
[2020-10-12 13:41] LABS: FOLATE 16.9 NG/ML; FREE T4 0.91 NG/DL (0.76-1.46); THYROID STIMULATING HORMONE 2.35 uIU/ML (0.358-3.740)
== END ==
LOC: M SFHCADAM 10:35
PROVIDERS: ATTEND Physician Assistant
DX: M79.2 Neuralgia and neuritis, unspecified (principal); Z79.899 Other long term (current) drug therapy
CPT/HCPCS: 82607; 82746; 84439; 84443; 85652; G0463

== ENCOUNTER 2020-11-06 19:26 | Observation (INO) | payer MEDICARE ==
[~2020-11-06] VITALS: Ht 165.1 cm; Wt 53.6 kg
[~2020-11-06 19:26] MED LIST changes: -ALLE4TAB11 PO; -ECOT81TA5 PO; -FLUTISP NARES; -NUCY50TA19 PO; -ONDA8TAB8 PO; -VALA1TAB5
[2020-11-07] MEDS ORDERED: ONDA4TAB6 PO (00:33)
[2020-11-07] MEDS ORDERED: NUCY50TA19 PO (16:32)
[2020-11-07] MEDS ORDERED: VALA1TAB5 (16:32)
[2020-11-07] MEDS ORDERED: NS 1,000 ML IV ONE (17:40)
[2020-11-07] MEDS ORDERED: METOCLOPRAMIDE INJ 10MG/2ML VIAL (J2765 PER 1) IV ONE (17:40)
[2020-11-07 18:52] LABS: BASO # 0.1 10^3/uL (0.0-0.2); BASO % 0.6 % (0.0-1.0); EOS # 0.2 10^3/uL (0.0-0.5); EOS % 1.9 % (0.0-3.0); HEMATOCRIT 35.2 % (36.0-47.0); HEMOGLOBIN 11.1 g/dl (12.0-15.5); LYMPH # 2.1 10^3/uL (1.5-5.0); LYMPH % 20.1 % (24.0-44.0); MEAN CORPUSCULAR HEMOGLOBIN 30.7 pg (27.0-33.0); MEAN CORPUSCULAR HGB CONC 31.5 g/dl (32.0-36.5); MEAN CORPUSCULAR VOLUME 97.5 fl (80.0-96.0); MONO # 1.1 10^3/uL (0.0-0.8); MONO % 10.2 % (2.0-8.0); NEUTROPHILS # 6.9 10^3/uL (1.5-8.5); NEUTROPHILS % 65.9 % (36.0-66.0); PLATELET COUNT, AUTOMATED 376 10^3/uL (150-450); RED BLOOD COUNT 3.61 10^6/uL (4.00-5.40); WHITE BLOOD COUNT 10.4 10^3/uL (4.0-10.0)
[2020-11-07 19:08] LABS: ALBUMIN 3.2 GM/DL (3.2-5.2); BILIRUBIN,DIRECT 0.3 MG/DL (0.0-0.2); BILIRUBIN,TOTAL 1.1 MG/DL (0.2-1.0); CALCIUM LEVEL 9.5 MG/DL (8.8-10.2); CREATININE FOR GFR 1.06 MG/DL (0.55-1.30); GLOMERULAR FILTRATION RATE 53.8 (>39); POTASSIUM SERUM 4.4 MEQ/L (3.5-5.1)
[2020-11-07] MEDS: ASPIRIN 81MG ENTERIC TABLET PO SCH (21:00)
[2020-11-07] MEDS ORDERED: ONDA8TAB8 PO (21:37)
[2020-11-07] MEDS ORDERED: ECOT81TA5 PO (21:37)
[2020-11-07] MEDS ORDERED: FLUTISP NARES (21:37)
[2020-11-07] MEDS ORDERED: ALLE4TAB11 PO (21:37)
[2020-11-07] MEDS ORDERED: DIAZ2TAB PO (21:37)
[2020-11-07] MEDS ORDERED: HOME MED LIST COMPLETE! XX SCH (21:40)
[2020-11-07 21:55] LABS: RSV AMPLIFICATION NEGATIVE (NEGATIVE)
[2020-11-07] MEDS: NS 1,000 ML IV SCH (22:25)
[2020-11-07] MEDS ORDERED: ONDANSETRON 4MG/2ML VIAL IV PRN (22:25)
--- NOTE | 2020-11-07 22:39 | HPEPDOC ---
General Date of Admission 11/07/20 Date of Service: Nov 07, 2020 Attending Physician: OZ MARK MD Chief Complaint The patient is a 75-year-old female admitted with a reason for visit of Vomiting / Not Eating. Source: Patient Exam Limitations: No limitations Severity: Severe Associated Symptoms: Loss of appetite History of Present Illness Shalini Rea is a 75-year-old white female with a history of sinusitis, paroxysmal A. fib, diverticulosis, GERD, stress incontinence, anxiety who arrives with intractable nausea and vomiting after recent left knee arthroplasty. Patient was seen in no acute distress after having come to the ER yesterday with similar complaints. Patient received antiemetics and hydration and went home only to return today after continued symptoms. Patient reports she had similar presentation after having her right knee replaced as well due to her highly sensitive response to pain medication. Patient reports after this procedure having less pain medication however still antiemetics did not remedy her symptoms completely and thus, she returned. She reports her last pain medication was on Friday and describes little p.o. intake past 2 days. Pt denies fields, sinus congestion, sore throat, productive cough, sob, palpitations, chest pain, d, abdominal pain, weakness, sensory changes or syncope. Fortunately patient reports no left knee pain at rest only with ambulation currently and thus reports that she is doing well without further pain me dication. Patient will be admitted for observation for antiemetics and hydration to ensure she can tolerate p.o. Home Medications Scheduled Acebutolol HCl (Acebutolol HCl) 200 Mg Capsule, 200 MG PO QHS, (Reported) Aspirin (Ecotrin) 81 Mg Tablet.dr, 81 MG PO BID, (Reported) Conjugated Estrogens (Premarin) 0.625 Mg Tablet, 0.625 MG PO QHS, (Reported) Pantoprazole Sodium (Pantoprazole Sodium) 40 Mg Tab, 40 MG PO DAILY, (Reported) Spironolactone (Spironolactone) 25 Mg Tablet, 12.5 MG PO DAILY, (Reported) Scheduled PRN Chlorpheniramine Maleate (Chlorpheniramine Maleate) 4 Mg Tablet, 4 MG PO QHS PRN for ALLERGIES, (Reported) Diazepam (Diazepam) 2 Mg Tablet, 0.5 MG PO QHS PRN for INSOMNIA, (Reported) Fluticasone Propionate (Fluticasone Propionate) 16 Gm [place].susp, 1 SPRAY [place]AR[place] BID PRN for ALLERGIES, (Reported) Ibuprofen (Ibuprofen) 200 Mg Tablet, 200 MG PO Q6H PRN for PAIN LEVEL 1-5, (Reported) Ondansetron (Ondansetron Odt) 8 Mg Tab.rapdis, 8 MG PO Q6-8HP PRN for NAUSEA OR VOMITING, (Reported) Allergies Coded Allergies: Sulfa (Sulfonamide Antibiotics) (Verified Allergy, Severe, SWOLLEN TONGUE, 10/06/18) cefuroxime (Verified Allergy, Intermediate, HIVES, 10/06/18) ergocalciferol (vitamin D2) (Verified Allergy, Intermediate, FACIAL SWELLING, 10/06/18) cefaclor (Verified Allergy, Unknown, 09/17/18) ubidecarenone (Verified Allergy, Unknown, 09/17/18) montelukast (Verified Adverse Reaction, Intermediate, INCREASED HEART RATE , 10/06/18) morphine (Verified Adverse Reaction, Intermediate, CAUSED TROUBLE WAKING UP AFTER SURGERY, 10/06/18) tramadol (Verified Adverse Reaction, Intermediate, INCREASED HEART RATE, 10/06/18) acetaminophen (Verified Adverse Reaction, Mild, vomiting , 11/07/20) pt experienced nausea and vomiting, sweating last time she took it this week erythromycin base (Verified Adverse Reaction, Mild, STOMACH ISSUES, 10/06/18) minocycline (Verified Adverse Reaction, Mild, DIZZINESS, 10/06/18) Past Medical History Medical History Sinusitis, subdural hematoma, aortic valve impairment, A. fib status post ablation-paroxysmal A. fib, diverticulosis, GERD, stress incontinence and anxiety. Surgical History Left and right knee arthroplasty Family History Significant Family History: No pertinent family hx Motherdementia, fatherstroke, brotherosteoarthritis and diverticulitis Social History * Smoker: Denies Alcohol: Denies Drugs: denies Recent Travel/Sick Contacts: Denies: Recent travel, Recent sick contacts Pets in the home: Cat(s) (Adult cat and kitten) Psychosocial History: Anxiety Patient reports anxiety with being in the hospital; she has had a unfortunate history with a fall in the past while In hospital and she described anxiety with being admitted again A-FIB/CHADSVASC A-FIB History Current/History of A-Fib/PAF?: Yes Current PO Anticoag Therapy: No Age/Risk Factor Scoring CHADSVASC: CHADSVASC Response (Comments) Value Age Risk Factor Age >/= 75 years old 2 Gender Risk Factor Female 1 Hx of CHF No 0 Hx of HTN No 0 Hx of Stroke/TIA/or VTE No 0 Hx of Diabetes No 0 Hx of Vascular Disease No 0 Total 3 Treatment Treatment ordered: NONE Reason Anticoagulant not given: Current bleeding, Patient refusal (TAKES ECOTRIN; PT WITH HX GI BLEED AND S/P RECENT SURGERY AND NOTABLY LARGE BRUISING TO BODY COUPLED WITH STEPHEN ) Review of Systems Constitutional: Reports: Weakness, Fatigue Eyes: Denies: Pain, Vision change ENT: Denies: Head Aches, Ear Pain, Dysphagia Skin: Denies: Rash, Lesions, Breakdown Pulmonary: Denies: Dyspnea, Cough Cardiovascular: Denies: Chest Pain, Palpitations, Orthopnea, Paroxysmal Noc. Dyspnea, Lt Headedness Gastrointestinal: Reports: Nausea, Vomiting; Denies: Abdominal Pain, Diarrhea, Constipation (Dark stool in setting of iron supplement) Genitourinary: Denies: Dysuria, Frequency, Incontinence, Retention Hematologic: Reports: Bruising; Denies: Bleeding Excessively Musculoskeletal: Reports: Joint Pain (Recent left knee arthroplasty notable swelling and scar midline to knee), Other Symptoms; Denies: Neck Pain, Back Pain, Muscle Pain, Spasms Neurological: Denies: Weakness, Numbness, Change in speech, Confusion Psych: Reports: Mood Normal; Denies: Depression, Memory Issues Physical Examination General Exam: Positive: Alert, Cooperative, No Acute Distress Eye Exam: Positive: PERRLA, Conjunctiva & lids normal, EOMI; Negative: Sclera icteric ENT Exam: Positive: Atraumatic, Mucous membr. moist/pink, Pharynx Normal Neck Exam: Positive: Supple; Negative: JVD, thyromegaly Chest Exam: Positive: Clear to auscultation, Normal air movement Heart Exam: Positive: Rate Normal, Regular Rhythm, Normal S1, Normal S2; Negative: Murmurs, Rubs Telemetry: Positive: No significant arrhythmia Abdomen Exam: Positive: Normal bowel sounds, Soft; Negative: Tenderness, Hepatospenomegaly Extremity Exam: Positive: Normal pulses; Negative: Clubbing, Cyanosis, Edema Skin Exam: Positive: Nl turgor and temperature, Other skin issue (Bruising surrounding surgical site of left knee; midline surgical scar healing no dehiscence); Negative: Breakdown, Lesion Psych Exam: Positive: Mental status NL, Mood NL, Oriented x 3 Vital Signs Vital Signs Date Time Temp Pulse Resp B/P (MAP) Pulse Ox O2 Delivery O2 Flow Rate FiO2 11/07/20 20:15 140/62 (88) 11/07/20 15:56 99.9 103 18 98 Room Air Laboratory Data Labs 24H Laboratory Tests 2 11/07/20 18:35: Immature Granulocyte % (Auto) 1.3, Neutrophils (%) (Auto) 65.9, Lymphocytes (%) (Auto) 20.1L, Monocytes (%) (Auto) 10.2H, Eosinophils (%) (Auto) 1.9, Basophils (%) (Auto) 0.6, Neutrophils # (Auto) 6.9, Lymphocytes # (Auto) 2.1, Monocytes # (Auto) 1.1H, Eosinophils # (Auto) 0.2, Basophils # (Auto) 0.1, Nucleated Red Blood Cells % (auto) 0.0, Anion Gap 7L, Glomerular Filtration Rate 53.8, Calcium Level 9.5, Total Bilirubin 1.1H, Direct Bilirubin 0.3H, Aspartate Amino Transf (AST/SGOT) 22, Alanine Aminotransferase (ALT/SGPT) 31, Alkaline Phosphatase 80, Total Protein 7.0, Albumin 3.2, Albumin/Globulin Ratio 0.8L 11/07/20 21:01: CBC/BMP Laboratory Tests 11/07/20 18:35 RAD Interpretation STUDY: CXR Rad Actions: Report Reviewed RAD Interpretation: Normal Assessment/Plan 1. Intractable nausea vomiting, in setting of recent pain medication use. Monitor patient, monitor intake and output. Reassuring to note patient had similar presentation when her right knee was replaced. Plan for scheduled antiemetics and fluids. Clear liquid diet with plans to advance as tolerated. Sitter any other underlying causes for nausea vomiting: Patient without trauma to head, chest x-ray nonacute. Will check UA although patient without dysuria complaints. Patient does have a history of diverticulitis however without any abdominal pain or tenderness during clinical exam and patient with no complaints of diarrhea. Of note, patient also taking iron supplementation with patient poor p.o. this may be coupling with the GI stress. 2. Leukocytosis: WBC 10.4 today yesterday was 13.9 improvement. Likely reactive. Monitor patient for worsening signs symptoms and elevated infectious markers. 3. Status post left knee arthroplasty: Monitor patient monitor site for any signs symptoms of infection. Ice and site care. Symptom and support management. 4. Anxiety: Monitor patient, monitor mood, encourage nonpharmacologic methods to manage. As needed antianxiety for breakthrough anxiety. DVT: SCDs CODE STATUS: Full code Dispo: Home once patient tolerating p.o., hopefully by tomorrow Plan / VTE VTE Prophylaxis Ordered?: Yes MARIA T HAWLEY NP Nov 07, 2020 21:43
[2020-11-07 23:22] LABS: APPEARANCE, URINE CLEAR (CLEAR); BACTERIA, URINE AUTO NEGATIVE (NEGATIVE); BILIRUBIN, URINE AUTO NEGATIVE (NEGATIVE); BLOOD, URINE BLOOD 1+ (NEGATIVE); COLOR, URINE YELLOW (YELLOW); GLUCOSE, URINE (UA) AUTO NEGATIVE (NEGATIVE); KETONE, URINE AUTO 1+ mg/dL (NEGATIVE); LEUKOCYTE ESTERASE, URINE AUTO NEGATIVE (NEGATIVE); MUCUS, URINE SMALL (NEGATIVE); NITRITE, URINE AUTO NEGATIVE (NEGATIVE); PROTEIN, URINE AUTO NEGATIVE (NEGATIVE); RBC, URINE AUTO 6 /HPF (0-3); SPECIFIC GRAVITY URINE AUTO 1.013 (1.002-1.035); SQUAMOUS EPITHELIAL CELL UR AU 1 /HPF (0-6); WBC, URINE AUTO 3 /HPF (0-3)
[2020-11-07 23:24] LABS: MAGNESIUM LEVEL 2.2 MG/DL (1.8-2.4)
[2020-11-08] VITALS: BP 107/67
[2020-11-08] MEDS: METOCLOPRAMIDE INJ 10MG/2ML VIAL (J2765 PER 1) IV SCH ×4 (00:19→18:19)
[2020-11-08] MEDS ORDERED: diazePAM 2 MG TAB PO PRN (02:15)
[2020-11-08] MEDS ORDERED: FLUTICASONE PROP 0.05% NASAL SPRAY 16 GM (FLONASE) NARES PRN (02:15)
[2020-11-08 06:00] VITALS: BP 111/65
[2020-11-08 06:27] LABS: BASO # 0.1 10^3/uL (0.0-0.2); BASO % 0.6 % (0.0-1.0); EOS # 0.3 10^3/uL (0.0-0.5); EOS % 3.2 % (0.0-3.0); HEMATOCRIT 29.1 % (36.0-47.0); LYMPH # 1.9 10^3/uL (1.5-5.0); LYMPH % 22.7 % (24.0-44.0); MEAN CORPUSCULAR HEMOGLOBIN 31.3 pg (27.0-33.0); MEAN CORPUSCULAR HGB CONC 31.6 g/dl (32.0-36.5); MONO % 12.3 % (2.0-8.0); NEUTROPHILS # 4.9 10^3/uL (1.5-8.5); RED BLOOD COUNT 2.94 10^6/uL (4.00-5.40); WHITE BLOOD COUNT 8.2 10^3/uL (4.0-10.0)
[2020-11-08 06:28] LABS: HEMOGLOBIN 9.2 g/dl (12.0-15.5); PLATELET COUNT, AUTOMATED 258 10^3/uL (150-450)
[2020-11-08 06:35] LABS: BLOOD UREA NITROGEN 20 MG/DL (7-18); CALCIUM LEVEL 8.2 MG/DL (8.8-10.2); CARBON DIOXIDE LEVEL 23 MEQ/L (21-32); CHLORIDE LEVEL 111 MEQ/L (98-107); CREATININE FOR GFR 0.74 MG/DL (0.55-1.30); GLOMERULAR FILTRATION RATE > 60.0 (>39); GLUCOSE, FASTING 85 MG/DL (70-100); POTASSIUM SERUM 4.3 MEQ/L (3.5-5.1); SODIUM LEVEL 142 MEQ/L (136-145)
[2020-11-08] MEDS: SUCRALFATE SUSP 1GM/10ML UD PO SCH ×5 (07:30→20:36)
[2020-11-08] MEDS: PANTOPRAZOLE 40MG TAB (PROTONIX) PO SCH (08:14)
[2020-11-08] MEDS: ASPIRIN 81MG ENTERIC TABLET PO SCH ×2 (08:14→20:36)
[2020-11-08] MEDS: NS 1,000 ML IV SCH (10:56)
[2020-11-08 14:00] VITALS: BP 116/63
--- NOTE | 2020-11-08 18:26 | IPNPDOC ---
Subjective Date Seen The patient was seen on 11/08/20. Subjective Chief Complaint/HPI Mrs. Rea is a 75 year old female with atrial fib s/p ablation, diverticulosis and GERD who is here for intractable N/V following surgery with anesthesia. She was seen in the morning. She tells me she generally does not do well with anesthesia. She still has trouble keeping food down and is still nauseous. Objective Physical Examination General Exam: Positive: Alert, Cooperative Eye Exam: Positive: Conjunctiva & lids normal, EOMI; Negative: Sclera icteric ENT Exam: Positive: Atraumatic Neck Exam: Positive: Supple Chest Exam: Positive: Clear to auscultation; Negative: Rales, Rhonchi, Wheezing Heart Exam: Positive: Rate Normal, Regular Rhythm Abdomen Exam: Positive: Normal bowel sounds, Soft; Negative: Tenderness Extremity Exam: Negative: Edema Skin Exam: Positive: Other skin issue Neuro Exam: Positive: Normal Speech Psych Exam: Positive: Mental status NL, Mood NL Assessment /Plan Assessment Mrs. Rea is a 75 year old female with atrial fib s/p ablation, diverticulosis and GERD who is here for intractable N/V following surgery with anesthesia. Will need to wait for anesthesia to run it course. In the meantime, continue patient on clear liquid diet with PPI and Carafate. Plan/VTE VTE Prophylaxis Ordered?: Yes Plan 1. Intractable N/V -Recent anesthesia -Continue clear liquid diet. Advance as tolerated -Continue PPI -Add on Carafate -Supportive care 2. Leukocytosis -Most likely reactive. No fever -Resolved 3. Status post left knee arthroplasty -Supportive care and pain control 4. Anxiety -Supportive care -Diazepam as needed 5. DVT ppx -SCD and TEDs Disposition: pending improvement in nausea and ability to tolerate diet. VS, I&O, 24H, Jose Vital Signs/I&O Vital Signs Date Time Temp Pulse Resp B/P (MAP) Pulse Ox O2 Delivery O2 Flow Rate FiO2 11/08/20 14:00 99.3 94 18 116/63 (80) 99 Room Air I&O- Last 24 Hours up to 6 AM 11/08/20 06:00 Intake Total 1470 ml Balance 1470 ml Laboratory Data 24H LABS Laboratory Tests 2 11/07/20 18:34: Procalcitonin <0.05 11/07/20 18:35: Immature Granulocyte % (Auto) 1.3, Neutrophils (%) (Auto) 65.9, Lymphocytes (%) (Auto) 20.1L, Monocytes (%) (Auto) 10.2H, Eosinophils (%) (Auto) 1.9, Basophils (%) (Auto) 0.6, Neutrophils # (Auto) 6.9, Lymphocytes # (Auto) 2.1, Monocytes # (Auto) 1.1H, Eosinophils # (Auto) 0.2, Basophils # (Auto) 0.1, Nucleated Red Blood Cells % (auto) 0.0, Anion Gap 7L, Glomerular Filtration Rate 53.8, Calcium Level 9.5, Magnesium Level 2.2, Total Bilirubin 1.1H, Direct Bilirubin 0.3H, Aspartate Amino Transf (AST/SGOT) 22, Alanine Aminotransferase (ALT/SGPT) 31, Alkaline Phosphatase 80, Total Protein 7.0, Albumin 3.2, Albumin/Globulin Ratio 0.8L 11/07/20 21:01: Coronavirus (COVID-19)(PCR) NEGATIVE, Influenza Type A (RT-PCR) NEGATIVE, Influenza Type B (RT-PCR) NEGATIVE, Respiratory Syncytial Virus (PCR) NEGATIVE 11/07/20 23:08: Urine Color YELLOW, Urine Appearance CLEAR, Urine pH 6.0, Urine Specific [place] 1.013, Urine Protein NEGATIVE, Urine Glucose (Auto)(UA) NEGATIVE, Urine Ketones (Auto) 1+H, Urine Blood 1+H, Urine Nitrite NEGATIVE, Urine Bilirubin NEGATIVE, Urine Urobilinogen 4.0H, Urine Leukocyte Esterase (Auto) NEGATIVE, Urine WBC (Auto) 3, Urine RBC (Auto) 6H, Urine Hyaline Casts (Auto) 0, Urine Bacteria (Auto) NEGATIVE, Urine Squamous Epithelial Cells 1, Urine Mucus (Auto) SMALL, Urine Sperm (Auto) 11/08/20 05:22: Immature Granulocyte % (Auto) 1.2, Neutrophils (%) (Auto) 60.0, Lymphocytes (%) (Auto) 22.7L, Monocytes (%) (Auto) 12.3H, Eosinophils (%) (Auto) 3.2H, Basophils (%) (Auto) 0.6, Neutrophils # (Auto) 4.9, Lymphocytes # (Auto) 1.9, Monocytes # (Auto) 1.0H, Eosinophils # (Auto) 0.3, Basophils # (Auto) 0.1, Nucleated Red Blood Cells % (auto) 0.0, Anion Gap 8, Glomerular Filtration Rate > 60.0, Calcium Level 8.2L CBC/BMP Laboratory Tests 11/07/20 18:35 11/08/20 05:22 FELIPE NATHAN 28, 2021 18:26
[2020-11-08 19:18] LABS: HEMATOCRIT 29.7 % (36.0-47.0); HEMOGLOBIN 9.6 g/dl (12.0-15.5); MEAN CORPUSCULAR HEMOGLOBIN 31.3 pg (27.0-33.0); MEAN CORPUSCULAR HGB CONC 32.3 g/dl (32.0-36.5); MEAN CORPUSCULAR VOLUME 96.7 fl (80.0-96.0); PLATELET COUNT, AUTOMATED 305 10^3/uL (150-450); RED BLOOD COUNT 3.07 10^6/uL (4.00-5.40); WHITE BLOOD COUNT 7.2 10^3/uL (4.0-10.0)
[2020-11-08 19:50] LABS: PERCENT SATURATION 15.2 % (13.2-45.0)
[2020-11-08 22:00] VITALS: BP 130/57
[2020-11-09] MEDS: METOCLOPRAMIDE INJ 10MG/2ML VIAL (J2765 PER 1) IV SCH ×3 (00:22→12:00)
[2020-11-09] MEDS: NS 1,000 ML IV SCH (00:22)
[2020-11-09 06:00] VITALS: BP 148/75
[2020-11-09] MEDS ORDERED: IBUPROFEN 200MG TAB PO ONE (06:25)
[2020-11-09 06:28] LABS: BASO # 0.1 10^3/uL (0.0-0.2); BASO % 0.6 % (0.0-1.0); EOS # 0.4 10^3/uL (0.0-0.5); EOS % 4.4 % (0.0-3.0); HEMATOCRIT 31.3 % (36.0-47.0); LYMPH # 2.1 10^3/uL (1.5-5.0); LYMPH % 25.1 % (24.0-44.0); MEAN CORPUSCULAR HEMOGLOBIN 30.9 pg (27.0-33.0); MEAN CORPUSCULAR HGB CONC 31.9 g/dl (32.0-36.5); MEAN CORPUSCULAR VOLUME 96.6 fl (80.0-96.0); MONO % 12.6 % (2.0-8.0); NEUTROPHILS # 4.6 10^3/uL (1.5-8.5); NEUTROPHILS % 56.2 % (36.0-66.0); PLATELET COUNT, AUTOMATED 347 10^3/uL (150-450); RED BLOOD COUNT 3.24 10^6/uL (4.00-5.40); WHITE BLOOD COUNT 8.2 10^3/uL (4.0-10.0)
[2020-11-09 06:49] LABS: BLOOD UREA NITROGEN 13 MG/DL (7-18); CALCIUM LEVEL 8.7 MG/DL (8.8-10.2); CARBON DIOXIDE LEVEL 27 MEQ/L (21-32); CHLORIDE LEVEL 108 MEQ/L (98-107); CREATININE FOR GFR 0.73 MG/DL (0.55-1.30); GLOMERULAR FILTRATION RATE > 60.0 (>39); GLUCOSE, FASTING 99 MG/DL (70-100); SODIUM LEVEL 140 MEQ/L (136-145)
[2020-11-09] MEDS: SUCRALFATE SUSP 1GM/10ML UD PO SCH ×2 (07:30→12:00)
[2020-11-09] MEDS: PANTOPRAZOLE 40MG TAB (PROTONIX) PO SCH (09:00)
[2020-11-09] MEDS: ASPIRIN 81MG ENTERIC TABLET PO SCH (09:00)
--- NOTE | 2020-11-09 10:17 | REP ---
INDICATION: left knee pain. Recent surgery. COMPARISON: None. TECHNIQUE: Four views of the left knee are provided. FINDINGS: Four views of the left knee demonstrate left knee arthroplasty components in good position. There is anterior soft tissue swelling.. No fracture or subluxation is seen. . IMPRESSION: Status post left knee arthroplasty.. <Electronically signed by Krish Moore > 11/09/20 1014
--- NOTE | 2020-11-09 17:16 | DS.PDOC ---
Discharge Summary General Date of Admission Nov 07, 2020 at 22:21 Date of Discharge Nov 09, 2020 Discharge Summary PROCEDURES PERFORMED DURING STAY: None ADMITTING DIAGNOSES: 1. Intractable nausea/vomiting secondary to a anesthesia 2. Status post left knee arthroplasty 3. Anxiety DISCHARGE DIAGNOSES: 1. Intractable nausea/vomiting secondary to a anesthesia 2. Status post left knee arthroplasty 3. Anxiety COMPLICATIONS/CHIEF COMPLAINT: Intractable Nausea And Vomiting. HISTORY OF PRESENT ILLNESS: Copied from admitting provider's H&P "Shalini Rea is a 75-year-old white female with a history of sinusitis, paroxysmal A. fib, diverticulosis, GERD, stress incontinence, anxiety who arrives with intractable nausea and vomiting after recent left knee arthroplasty. Patient was seen in no acute distress after having come to the ER yesterday with similar complaints. Patient received antiemetics and hydration and went home only to return today after continued symptoms. Patient reports she had similar presentation after having her right knee replaced as well due to her highly sensitive response to pain medication. Patient reports after this procedure having less pain medication however still antiemetics did not remedy her symptoms completely and thus, she returned. She reports her last pain medication was on Friday and describes little p.o. intake past 2 days. Pt denies fields, sinus congestion, sore throat, productive cough, sob, palpitations, chest pain, d, abdominal pain, weakness, sensory changes or syncope. Fortunately patient reports no left knee pain at rest only with ambulation currently and thus reports that she is doing well without further pain medication. Patient will be admitted for observation for antiemetics and hydration to ensure she can tolerate p.o." HOSPITAL COURSE: During hospitalization, patient was put on bowel rest and started on nausea medication. Carafate was added to regimen, but she could not tolerate the smell/taste. She did not require Zofran. Today, she heard a pop from her left knee which had surgery. XR knee complete was negative and patient cleared physical therapy. Today, she tolerated a diet. She felt ready for home and was discharge home. DISCHARGE MEDICATIONS: Please see below. ALLERGIES: Please see below. PHYSICAL EXAMINATION ON DISCHARGE: VITAL SIGNS: Please see below. GENERAL: Comfortable, in no apparent distress. HEENT: EOMI, sclera clear. NECK: Supple. RESPIRATORY: Lungs clear to auscultation bilaterally, no rales, wheeze or rhonchi. CARDIOVASCULAR: Regular rate and rhythm. ABDOMEN: Soft, nontender, no guarding or rebound tenderness. Normal bowel sounds. MUSCLE SKELETAL: No pitting edema NEUROLOGICAL: CN 3-12 grossly intact, no focal deficits noted. PSYCHOLOGICAL: Normal mood and affect LABORATORY DATA: Please see below. IMAGING: Radiologist interpretation XR left knee Four views of the left knee demonstrate left knee arthroplasty components in good position. There is anterior soft tissue swelling.. No fracture or subluxation is seen PROGNOSIS: Good ACTIVITY: As tolerated. DIET: As tolerated DISCHARGE PLAN: Home with home health services DISPOSITION: Home Health Service. DISCHARGE INSTRUCTIONS: 1. Follow up with PCP in 1 week DISCHARGE CONDITION: Stable. Total time spent on discharge planning, discharge summary, medication reconciliation: 30 minutes Vital Signs/I&Os Vital Signs Date Time Temp Pulse Resp B/P (MAP) Pulse Ox O2 Delivery O2 Flow Rate FiO2 11/09/20 06:00 98.5 93 19 148/75 (99) 98 Room Air I&O- Last 24 Hours up to 6 AM 11/09/20 06:00 Intake Total 2635 ml Balance 2635 ml Laboratory Data Labs 24H Laboratory Tests 2 11/08/20 19:06: Reticulocyte # (auto) 83.8H, Nucleated Red Blood Cells % (auto) 0.0, Percent Reticulocyte Count 2.7H, Reticulocyte Hemoglobin Equivalent 31.3, Iron Level 38L, Total Iron Binding Capacity 250, Transferrin % Saturation 15.2, Ferritin 122, Vitamin B12 Level 357 11/09/20 06:08: Nucleated Red Blood Cells % (auto) 0.0, Immature Granulocyte % (Auto) 1.1, Neutrophils (%) (Auto) 56.2, Lymphocytes (%) (Auto) 25.1, Monocytes (%) (Auto) 12.6H, Eosinophils (%) (Auto) 4.4H, Basophils (%) (Auto) 0.6, Neutrophils # (Auto) 4.6, Lymphocytes # (Auto) 2.1, Monocytes # (Auto) 1.0H, Eosinophils # (Auto) 0.4, Basophils # (Auto) 0.1, Anion Gap 5L, Glomerular Filtration Rate > 60.0, Calcium Level 8.7L CBC/BMP Laboratory Tests 11/09/20 06:08 Discharge Medications Scheduled Acebutolol HCl (Acebutolol HCl) 200 Mg Capsule, 200 MG PO QHS, (Reported) Aspirin (Ecotrin) 81 Mg Tablet.dr, 81 MG PO BID, (Reported) Conjugated Estrogens (Premarin) 0.625 Mg Tablet, 0.625 MG PO QHS, (Reported) Pantoprazole Sodium (Pantoprazole Sodium) 40 Mg Tab, 40 MG PO DAILY, (Reported) Spironolactone (Spironolactone) 25 Mg Tablet, 12.5 MG PO DAILY, (Reported) Scheduled PRN Chlorpheniramine Maleate (Chlorpheniramine Maleate) 4 Mg Tablet, 4 MG PO QHS PRN for ALLERGIES, (Reported) Diazepam (Diazepam) 2 Mg Tablet, 0.5 MG PO QHS PRN for INSOMNIA, (Reported) Fluticasone Propionate (Fluticasone Propionate) 16 Gm [place].susp, 1 SPRAY NARES BID PRN for ALLERGIES, (Reported) Ibuprofen (Ibuprofen) 200 Mg Tablet, 200 MG PO Q6H PRN for PAIN LEVEL 1-5, (Reported) Ondansetron (Ondansetron Odt) 8 Mg Tab.rapdis, 8 MG PO Q6-8HP PRN for NAUSEA OR VOMITING, (Reported) Allergies Coded Allergies: Sulfa (Sulfonamide Antibiotics) (Verified Allergy, Severe, SWOLLEN TONGUE, 10/06/18) cefuroxime (Verified Allergy, Intermediate, HIVES, 10/06/18) ergocalciferol (vitamin D2) (Verified Allergy, Intermediate, FACIAL SWELLING, 10/06/18) cefaclor (Verified Allergy, Unknown, 09/17/18) ubidecarenone (Verified Allergy, Unknown, 09/17/18) montelukast (Verified Adverse Reaction, Intermediate, INCREASED HEART RATE , 10/06/18) morphine (Verified Adverse Reaction, Intermediate, CAUSED TROUBLE WAKING UP AFTER SURGERY, 10/06/18) tramadol (Verified Adverse Reaction, Intermediate, INCREASED HEART RATE, 10/06/18) acetaminophen (Verified Adverse Reaction, Mild, vomiting , 11/07/20) pt experienced nausea and vomiting, sweating last time she took it this week erythromycin base (Verified Adverse Reaction, Mild, STOMACH ISSUES, 10/06/18) minocycline (Verified Adverse Reaction, Mild, DIZZINESS, 10/06/18) FELIPE NATHAN DO Nov 09, 2020 17:16
== END 2020-11-09 13:45 | disposition home or self-care (01) ==
LOC: M ED 19:26 → M ED INP 19:27 → M ED 11-07 15:55 → UNDOADMOB 11-07 22:21 → M ED INP 11-07 22:21 → ENRESERV 11-07 23:37 → M ED 11-07 23:49 → M MS5PR 11-08 00:02 → M ED INP 11-08 00:02 → UNDODISOB 11-09 13:45
PROVIDERS: ADMIT Internal Medicine; ATTEND Internal Medicine
DX: R11.2 Nausea with vomiting, unspecified (principal); D72.829 Elevated white blood cell count, unspecified; Z96.652 Presence of left artificial knee joint; K57.90 Diverticulosis of intestine, part unspecified, without perforation or abscess without bleeding; K21.9 Gastro-esophageal reflux disease without esophagitis; F41.9 Anxiety disorder, unspecified; I48.0 Paroxysmal atrial fibrillation; Z79.899 Other long term (current) drug therapy; Z79.82 Long term (current) use of aspirin; Z88.2 Allergy status to sulfonamides; Z88.5 Allergy status to narcotic agent; Z88.8 Allergy status to other drugs, medicaments and biological substances; Z88.1 Allergy status to other antibiotic agents; M25.562 Pain in left knee
CPT/HCPCS: 36415; 71045; 73564; 80048; 80076; 81001; 82607; 82728; 83550; 83605; 83690; 83735; 84145; 85025; 85027; 85046; 85652; 86140; 87040; 87631; 96361; 96374; 97110; 97116; 97161; 99284; G0378; J2405; J2765

== ENCOUNTER 2020-11-06 19:26 | Emergency (ER) | payer MEDICARE ==
[~2020-11-06] VITALS: Ht 165.1 cm; Wt 56.6 kg
[2020-11-06 21:17] LABS: BASO # 0.1 10^3/uL (0.0-0.2); BASO % 0.4 % (0.0-1.0); EOS # 0.2 10^3/uL (0.0-0.5); EOS % 1.5 % (0.0-3.0); HEMATOCRIT 34.2 % (36.0-47.0); HEMOGLOBIN 11.2 g/dl (12.0-15.5); LYMPH # 2.4 10^3/uL (1.5-5.0); LYMPH % 17.2 % (24.0-44.0); MEAN CORPUSCULAR HEMOGLOBIN 31.3 pg (27.0-33.0); MEAN CORPUSCULAR HGB CONC 32.7 g/dl (32.0-36.5); MEAN CORPUSCULAR VOLUME 95.5 fl (80.0-96.0); MONO # 1.3 10^3/uL (0.0-0.8); MONO % 9.2 % (2.0-8.0); NEUTROPHILS # 9.8 10^3/uL (1.5-8.5); NEUTROPHILS % 70.5 % (36.0-66.0); PLATELET COUNT, AUTOMATED 278 10^3/uL (150-450); RED BLOOD COUNT 3.58 10^6/uL (4.00-5.40); WHITE BLOOD COUNT 13.9 10^3/uL (4.0-10.0)
[2020-11-06 21:46] LABS: ALBUMIN 3.1 GM/DL (3.2-5.2); BILIRUBIN,DIRECT 0.2 MG/DL (0.0-0.2); BILIRUBIN,TOTAL 0.9 MG/DL (0.2-1.0); CALCIUM LEVEL 9.2 MG/DL (8.8-10.2); CREATININE FOR GFR 1.09 MG/DL (0.55-1.30); GLOMERULAR FILTRATION RATE 52.1 (>39); TOTAL PROTEIN 7.7 GM/DL (6.4-8.2)
[2020-11-06] MEDS ORDERED: ONDANSETRON 4MG/2ML VIAL IV ONE (22:10)
[2020-11-06] MEDS ORDERED: NS 1,000 ML IV ONE (22:10)
[2020-11-06 22:36] LABS: C REACTIVE PROTEIN QUANTITATIV 15.3 MG/DL (0.00-0.30)
[2020-11-06 22:57] LABS: ERYTHROCYTE SEDIMENTATION RATE 76 mm/hr (0-30)
--- NOTE | 2020-11-07 00:16 | REPVR ---
PROCEDURE INFORMATION: Exam: XR Chest Exam date and time: 11/06/2020 10:30 PM Age: 75 years old Clinical indication: Increased wbc; Additional info: Elev wbc, tka 4 days ago TECHNIQUE: Imaging protocol: XR of the chest. Views: 1 view. COMPARISON: No relevant prior studies available. FINDINGS: Lungs: There is left basilar atelectasis. No lung consolidation or pulmonary edema is noted. Pleural spaces: Unremarkable. No pleural effusion. No pneumothorax. Heart/Mediastinum: Unremarkable. No cardiomegaly. Bones/joints: There is a mild S-shaped scoliosis of the thoracolumbar spine. The right humeral head is high riding, which can be seen with a chronic full-thickness right rotator cuff tear. Degenerative changes of the right glenohumeral joint are present. IMPRESSION: No radiographic evidence for an acute cardiopulmonary process. Electronically signed by: Baljinder Feng On 11/07/2020 00:16:00 AM
[2020-11-07] MEDS ORDERED: ONDA4TAB6 PO (00:33)
[2020-11-07 00:36] VITALS: BP 108/59
[2020-11-07] MEDS ORDERED: NUCY50TA19 PO (16:32)
[2020-11-07] MEDS ORDERED: VALA1TAB5 (16:32)
[2020-11-07] MEDS ORDERED: ALLE4TAB11 PO (21:37)
[2020-11-07] MEDS ORDERED: FLUTISP NARES (21:37)
[2020-11-07] MEDS ORDERED: ONDA8TAB8 PO (21:37)
[2020-11-07] MEDS ORDERED: DIAZ2TAB PO (21:37)
[2020-11-07] MEDS ORDERED: ECOT81TA5 PO (21:37)
== END 2020-11-07 01:00 | disposition home or self-care (01) ==
LOC: M ED 19:26
DX: R11.2 Nausea with vomiting, unspecified (principal); D72.829 Elevated white blood cell count, unspecified; Z98.890 Other specified postprocedural states; Z96.652 Presence of left artificial knee joint; I10 Essential (primary) hypertension; Z88.1 Allergy status to other antibiotic agents; Z88.2 Allergy status to sulfonamides; Z88.8 Allergy status to other drugs, medicaments and biological substances; Z79.82 Long term (current) use of aspirin; Z79.899 Other long term (current) drug therapy

== ENCOUNTER → 2020-11-30 | Outpatient (REF) | payer MEDICARE ==
[~2020-11-30] MED LIST changes: +ALLE4TAB11 PO; +ECOT81TA5 PO; +FLUTISP NARES; +NUCY50TA19 PO; +ONDA8TAB8 PO; +VALA1TAB5
[2020-11-30 17:07] LABS: HEMATOCRIT 37.4 % (36.0-47.0); MEAN CORPUSCULAR HGB CONC 32.1 g/dl (32.0-36.5); MEAN CORPUSCULAR VOLUME 96.6 fl (80.0-96.0); PLATELET COUNT, AUTOMATED 369 10^3/uL (150-450); RED BLOOD COUNT 3.87 10^6/uL (4.00-5.40)
[2020-11-30 17:29] LABS: PERCENT SATURATION 19.2 % (13.2-45.0)
[2020-11-30 17:39] LABS: ALBUMIN 3.7 GM/DL (3.2-5.2); BILIRUBIN,TOTAL 0.5 MG/DL (0.2-1.0); CALCIUM LEVEL 9.4 MG/DL (8.8-10.2); CREATININE FOR GFR 1.22 MG/DL (0.55-1.30); GLOMERULAR FILTRATION RATE 45.7 (>39); POTASSIUM SERUM 4.4 MEQ/L (3.5-5.1); TOTAL PROTEIN 7.3 GM/DL (6.4-8.2)
== END ==
LOC: M SFHCADAM 13:38
PROVIDERS: ATTEND Family Medicine
DX: R53.1 Weakness (principal); I11.9 Hypertensive heart disease without heart failure; Z86.39 Personal history of other endocrine, nutritional and metabolic disease
CPT/HCPCS: 80053; 82728; 83550; 85027; 85046; G0463

== ENCOUNTER → 2021-03-12 | Outpatient (CLI) | payer MEDICARE | LOC: M RAD 07:40 | PROVIDERS: ATTEND Family Medicine | DX: N28.1 Cyst of kidney, acquired (principal); N20.0 Calculus of kidney ==

== ENCOUNTER → 2021-05-30 | Outpatient (REF) | payer MEDICARE ==
[2021-05-30 16:36] LABS: CREATININE FOR GFR 1.16 MG/DL (0.55-1.30)
[2021-05-30 16:37] LABS: GLOMERULAR FILTRATION RATE 48.5 (>39)
== END ==
LOC: M LABDRWAD 15:59
PROVIDERS: ATTEND Psychiatry & Neurology Neurology
DX: I10 Essential (primary) hypertension (principal)

== ENCOUNTER → 2021-07-04 | Outpatient (CLI) | payer MEDICARE | LOC: M WHC 10:22 | PROVIDERS: ATTEND Family Medicine | DX: Z12.31 Encounter for screening mammogram for malignant neoplasm of breast (principal) ==

== ENCOUNTER → 2021-07-09 | Outpatient (REF) | payer MEDICARE | LOC: M SFHCADAM 16:01 | PROVIDERS: ATTEND Family Medicine | DX: R05.9 Cough, unspecified (principal) ==

== ENCOUNTER → 2021-09-21 | Outpatient (CLI) | payer MEDICARE | LOC: M WHC 10:29 | PROVIDERS: ATTEND Family Medicine | DX: E04.1 Nontoxic single thyroid nodule (principal) ==

== ENCOUNTER → 2021-11-20 | Outpatient (REF) | payer MEDICARE ==
[2021-11-20 13:32] LABS: HEMATOCRIT 38.1 % (36.0-47.0); HEMOGLOBIN 12.5 g/dl (12.0-15.5); MEAN CORPUSCULAR HEMOGLOBIN 30.1 pg (27.0-33.0); MEAN CORPUSCULAR HGB CONC 32.8 g/dl (32.0-36.5); MEAN CORPUSCULAR VOLUME 91.8 fl (80.0-96.0); PLATELET COUNT, AUTOMATED 256 10^3/uL (150-450); RED BLOOD COUNT 4.15 10^6/uL (4.00-5.40); WHITE BLOOD COUNT 6.2 10^3/uL (4.0-10.0)
[2021-11-20 14:32] LABS: ALBUMIN 3.5 GM/DL (3.2-5.2); ALT/SGPT 21 U/L (12-78); BILIRUBIN,TOTAL 0.6 MG/DL (0.2-1.0); BLOOD UREA NITROGEN 20 MG/DL (7-18); CALCIUM LEVEL 9.1 MG/DL (8.8-10.2); CARBON DIOXIDE LEVEL 22 MEQ/L (21-32); CHLORIDE LEVEL 109 MEQ/L (98-107); CHOLESTEROL LEVEL 144 MG/DL (<200); CHOLESTEROL RISK RATIO 3.891 (<5); CREATININE FOR GFR 1.16 MG/DL (0.55-1.30); FERRITIN 31 NG/ML (8-252); FREE T4 0.98 NG/DL (0.76-1.46); GLOMERULAR FILTRATION RATE 48.4 (>39); GLUCOSE, FASTING 125 MG/DL (70-100); HDL CHOLESTEROL 37 MG/DL (>40); IRON (FE) 111 UG/DL (50-170); NON-HDL-C 107 MG/DL; PERCENT SATURATION 25.3 % (13.2-45.0); POTASSIUM SERUM 4.3 MEQ/L (3.5-5.1); SODIUM LEVEL 141 MEQ/L (136-145); TOTAL IRON BINDING CAPACITY 439 UG/DL (250-450); TOTAL PROTEIN 7.1 GM/DL (6.4-8.2); TRIGLYCERIDES LEVEL 467 MG/DL (<150)
[2021-11-20 14:44] LABS: HEMOGLOBIN A1c 5.9 %
== END ==
LOC: M SFHCADAM 10:14
PROVIDERS: ATTEND Physician Assistant
DX: E04.1 Nontoxic single thyroid nodule (principal); Z86.2 Personal history of diseases of the blood and blood-forming organs and certain disorders involving the immune mechanism; E78.5 Hyperlipidemia, unspecified; I11.9 Hypertensive heart disease without heart failure

== ENCOUNTER → 2021-11-26 | Outpatient (REF) | payer MEDICARE | LOC: M SFHCADAM 12:38 | PROVIDERS: ATTEND Family Medicine | DX: R19.7 Diarrhea, unspecified (principal) ==

== ENCOUNTER → 2022-05-22 | Outpatient (CLI) | payer MEDICARE ==
[~2022-05-22] MED LIST changes: +FLUT50SP17; +FLUT50SP17 NARES; -FLUTISP; -FLUTISP NARES
== END ==
LOC: M ADAMS 15:41
PROVIDERS: ATTEND Family Medicine
DX: J22 Unspecified acute lower respiratory infection (principal)

== ENCOUNTER → 2022-07-10 | Outpatient (REF) | payer MEDICARE ==
[~2022-07-10] MED LIST changes: -FLUT50SP17; -FLUT50SP17 NARES; +FLUTISP; +FLUTISP NARES
[2022-07-10 13:29] LABS: HEMATOCRIT 41.1 % (36.0-47.0); HEMOGLOBIN 13.1 g/dl (12.0-15.5); MEAN CORPUSCULAR HEMOGLOBIN 29.8 pg (27.0-33.0); MEAN CORPUSCULAR HGB CONC 31.9 g/dl (32.0-36.5); MEAN CORPUSCULAR VOLUME 93.4 fl (80.0-96.0); PLATELET COUNT, AUTOMATED 290 10^3/uL (150-450); WHITE BLOOD COUNT 7.1 10^3/uL (4.0-10.0)
[2022-07-10 13:51] LABS: IRON (FE) 107 UG/DL (50-170); PERCENT SATURATION 26.6 % (13.2-45.0); TOTAL IRON BINDING CAPACITY 403 UG/DL (250-425)
[2022-07-10 13:54] LABS: ALBUMIN 3.6 G/DL (3.2-5.2); ALKALINE PHOSPHATASE 85 U/L (46-116); ALT/SGPT 13 U/L (7.0-40); AST/SGOT 19 U/L (<34); BILIRUBIN,TOTAL 0.5 MG/DL (0.3-1.2); BLOOD UREA NITROGEN 26 MG/DL (9-23); CALCIUM LEVEL 9.9 MG/DL (8.3-10.6); CARBON DIOXIDE LEVEL 30 MMOL/L (20-31); CHLORIDE LEVEL 102 MMOL/L (98-107); CHOLESTEROL LEVEL 204 MG/DL (<200); CHOLESTEROL RISK RATIO 5.91 (<5); CREATININE FOR GFR 1.05 MG/DL (0.55-1.30); FERRITIN 16.3 NG/ML (7.3-270.7); FREE T4 0.97 NG/DL (0.89-1.76); GLOMERULAR FILTRATION RATE 54.1 (>39); GLUCOSE, FASTING 90 MG/DL (74-106); HDL CHOLESTEROL 34.5 MG/DL (>40); NON-HDL-C 169.5 MG/DL; POTASSIUM SERUM 4.9 MMOL/L (3.5-5.1); SODIUM LEVEL 136 MMOL/L (136-145); THYROID STIMULATING HORMONE 2.764 uIU/ML (0.55-4.78); TOTAL PROTEIN 6.8 G/DL (5.7-8.2); TRIGLYCERIDES LEVEL 849 MG/DL (<150)
== END ==
LOC: M SFHCADAM 11:24
PROVIDERS: ATTEND Family Medicine
DX: E04.1 Nontoxic single thyroid nodule (principal); I11.9 Hypertensive heart disease without heart failure; E78.5 Hyperlipidemia, unspecified; D50.0 Iron deficiency anemia secondary to blood loss (chronic); Z86.2 Personal history of diseases of the blood and blood-forming organs and certain disorders involving the immune mechanism

== ENCOUNTER → 2022-08-05 | Outpatient (CLI) | payer MEDICARE ==
[~2022-08-05] MED LIST changes: +FLUT50SP17; +FLUT50SP17 NARES; -FLUTISP; -FLUTISP NARES
== END ==
LOC: M WHC 11:01
PROVIDERS: ATTEND Family Medicine
DX: Z12.31 Encounter for screening mammogram for malignant neoplasm of breast (principal)

== ENCOUNTER → 2022-10-09 | Outpatient (CLI) | payer MEDICARE | LOC: M RAD 13:12 | PROVIDERS: ATTEND Family Medicine | DX: E04.1 Nontoxic single thyroid nodule (principal) ==

== ENCOUNTER → 2023-01-13 | Outpatient (REF) | payer MEDICARE ==
[~2023-01-13] MED LIST changes: +LEVO1TAB40 PO; +MECL-209 PO; -MECL1TAB31 PO
[2023-01-14 13:40] LABS: APPEARANCE, URINE CLOUDY (CLEAR); BACTERIA, URINE AUTO 1+ (NEGATIVE); BILIRUBIN, URINE AUTO NEGATIVE (NEGATIVE); BLOOD, URINE BLOOD 1+ (NEGATIVE); CALCIUM OXALATE CRYSTALS LARGE; COLOR, URINE AMBER (YELLOW); GLUCOSE, URINE (UA) AUTO NEGATIVE (NEGATIVE); KETONE, URINE AUTO NEGATIVE (NEGATIVE); LEUKOCYTE ESTERASE, URINE AUTO 2+ (NEGATIVE); MUCUS, URINE SMALL (NEGATIVE); NITRITE, URINE AUTO POSITIVE (NEGATIVE); PROTEIN, URINE AUTO NEGATIVE (NEGATIVE); RBC, URINE AUTO 1 /HPF (0-3); SPECIFIC GRAVITY URINE AUTO 1.018 (1.002-1.035); SQUAMOUS EPITHELIAL CELL UR AU 2 /HPF (0-6); UROBILINOGEN, URINE AUTO 0.2 mg/dL (0.0-2.0); WBC, URINE AUTO 53 /HPF (0-3)
== END ==
LOC: M SFHCADAM 13:05
PROVIDERS: ATTEND Physician Assistant Medical
DX: R39.15 Urgency of urination (principal)

== ENCOUNTER 2023-01-14 07:01 | Emergency (ER) | payer MEDICARE ==
[~2023-01-14] VITALS: Ht 165.1 cm; Wt 56.0 kg
[2023-01-14 07:01] VITALS: TEMP 97.7
[~2023-01-14 07:01] MED LIST changes: -LEVO1TAB40 PO
[2023-01-14 07:56] LABS: APPEARANCE, URINE HAZY (CLEAR); BACTERIA, URINE AUTO 1+ (NEGATIVE); BILIRUBIN, URINE AUTO NEGATIVE (NEGATIVE); BLOOD, URINE BLOOD 1+ (NEGATIVE); COLOR, URINE YELLOW (YELLOW); GLUCOSE, URINE (UA) AUTO NEGATIVE (NEGATIVE); KETONE, URINE AUTO NEGATIVE (NEGATIVE); LEUKOCYTE ESTERASE, URINE AUTO 2+ (NEGATIVE); MUCUS, URINE SMALL (NEGATIVE); NITRITE, URINE AUTO NEGATIVE (NEGATIVE); PROTEIN, URINE AUTO NEGATIVE (NEGATIVE); RBC, URINE AUTO 5 /HPF (0-3); SPECIFIC GRAVITY URINE AUTO 1.014 (1.002-1.035); SQUAMOUS EPITHELIAL CELL UR AU 1 /HPF (0-6); UROBILINOGEN, URINE AUTO 0.2 mg/dL (0.0-2.0); WBC, URINE AUTO 69 /HPF (0-3)
[2023-01-14 11:51] LABS: BASO # 0.1 10^3/uL (0.0-0.2); BASO % 0.7 % (0.0-1.0); EOS # 0.2 10^3/uL (0.0-0.5); EOS % 2.5 % (0.0-3.0); HEMATOCRIT 40.5 % (36.0-47.0); HEMOGLOBIN 13.4 g/dl (12.0-15.5); LYMPH # 1.7 10^3/uL (1.5-5.0); LYMPH % 24.1 % (24.0-44.0); MEAN CORPUSCULAR HEMOGLOBIN 30.2 pg (27.0-33.0); MEAN CORPUSCULAR HGB CONC 33.1 g/dl (32.0-36.5); MEAN CORPUSCULAR VOLUME 91.4 fl (80.0-96.0); MONO # 0.6 10^3/uL (0.0-0.8); MONO % 9.1 % (2.0-8.0); NEUTROPHILS # 4.4 10^3/uL (1.5-8.5); NEUTROPHILS % 63.2 % (36.0-66.0); PLATELET COUNT, AUTOMATED 260 10^3/uL (150-450); RED BLOOD COUNT 4.43 10^6/uL (4.00-5.40); WHITE BLOOD COUNT 6.9 10^3/uL (4.0-10.0)
[2023-01-14 12:08] LABS: ERYTHROCYTE SEDIMENTATION RATE 23 mm/hr (0-30)
[2023-01-14] MEDS ORDERED: LevoFLOXacin 750 MG TABLET PO ONE (13:00)
[2023-01-14] MEDS ORDERED: LEVO1TAB40 PO ×2 (13:19→13:23)
[2023-01-14 13:34] VITALS: BP 129/73; O2SAT 99
== END 2023-01-14 13:36 | disposition home or self-care (01) ==
LOC: M ED 07:01
DX: N39.0 Urinary tract infection, site not specified (principal); I10 Essential (primary) hypertension; K58.9 Irritable bowel syndrome, unspecified; Z87.442 Personal history of urinary calculi; Z88.2 Allergy status to sulfonamides; Z88.5 Allergy status to narcotic agent; Z88.6 Allergy status to analgesic agent; Z88.1 Allergy status to other antibiotic agents; Z88.8 Allergy status to other drugs, medicaments and biological substances; Z79.899 Other long term (current) drug therapy; Z79.82 Long term (current) use of aspirin

== ENCOUNTER → 2023-01-22 | Outpatient (REF) | payer MEDICARE ==
[~2023-01-22] MED LIST changes: +LEVO1TAB40 PO; -OXYB5TAB10 PO; +OXYB5TAB11 PO
== END ==
LOC: M SFHCADAM 16:42
PROVIDERS: ATTEND Family Medicine
DX: A49.9 Bacterial infection, unspecified (principal); R39.9 Unspecified symptoms and signs involving the genitourinary system; Z16.12 Extended spectrum beta lactamase (ESBL) resistance

== ENCOUNTER → 2023-01-31 | Outpatient (REF) | payer MEDICARE ==
[2023-01-31 17:57] LABS: APPEARANCE, URINE CLEAR (CLEAR); BACTERIA, URINE AUTO NEGATIVE (NEGATIVE); BILIRUBIN, URINE AUTO NEGATIVE (NEGATIVE); BLOOD, URINE BLOOD 1+ (NEGATIVE); COLOR, URINE YELLOW (YELLOW); GLUCOSE, URINE (UA) AUTO NEGATIVE (NEGATIVE); KETONE, URINE AUTO NEGATIVE (NEGATIVE); LEUKOCYTE ESTERASE, URINE AUTO TRACE (NEGATIVE); MUCUS, URINE SMALL (NEGATIVE); NITRITE, URINE AUTO NEGATIVE (NEGATIVE); PROTEIN, URINE AUTO NEGATIVE (NEGATIVE); RBC, URINE AUTO 0 /HPF (0-3); SPECIFIC GRAVITY URINE AUTO 1.018 (1.002-1.035); SQUAMOUS EPITHELIAL CELL UR AU 1 /HPF (0-6); UROBILINOGEN, URINE AUTO 0.2 mg/dL (0.0-2.0); WBC, URINE AUTO 18 /HPF (0-3)
== END ==
LOC: M SFHCADAM 17:24
PROVIDERS: ATTEND Family Medicine
DX: R30.0 Dysuria (principal)

== ENCOUNTER → 2023-02-20 | Outpatient (REF) | payer MEDICARE ==
[2023-02-20 17:25] LABS: APPEARANCE, URINE MANUAL HAZY (CLEAR); COLOR, URINE MANUAL YELLOW (YELLOW)
[2023-02-20 17:27] LABS: BILIRUBIN, URINE MANUAL NEGATIVE (NEGATIVE); BLOOD URINE MANUAL POSITIVE (NEGATIVE); GLUCOSE, URINE (UA) MANUAL NEGATIVE (NEGATIVE); KETONE, URINE MANUAL NEGATIVE (NEGATIVE); LEUKOCYTE ESTERASE, URINE MAN POSITIVE (NEGATIVE); NITRITE, URINE MANUAL NEGATIVE (NEGATIVE); PROTEIN, URINE MANUAL NEGATIVE (NEGATIVE); UROBILINOGEN, URINE MANUAL NORMAL (NORMAL)
[2023-02-20 17:37] LABS: HYALINE CAST, URINE NONE SEEN /lpf (0-1); SQUAMOUS EPITHELIAL CELL URINE MOD AMOUNT /hpf (SMALL AMT); WBC, URINE 20-30 /hpf (0-3)
[2023-02-20 17:38] LABS: BACTERIA, URINE SMALL AMOUNT; MUCUS, URINE MOD AMOUNT (NEGATIVE); YEAST, URINE SMALL AMOUNT
== END ==
LOC: M SFHCADAM 14:53
PROVIDERS: ATTEND Family Medicine
DX: N81.10 Cystocele, unspecified (principal); Z79.899 Other long term (current) drug therapy

== ENCOUNTER → 2023-04-23 | Outpatient (REF) | payer MEDICARE ==
[~2023-04-23] MED LIST changes: -FLUT50SP17; -FLUT50SP17 NARES; +FLUTISP; +FLUTISP NARES
[2023-04-23 17:33] LABS: HEMATOCRIT 38.5 % (36.0-47.0); HEMOGLOBIN 12.7 g/dl (12.0-15.5); MEAN CORPUSCULAR HEMOGLOBIN 30.5 pg (27.0-33.0); MEAN CORPUSCULAR VOLUME 92.5 fl (80.0-96.0); PLATELET COUNT, AUTOMATED 278 10^3/uL (150-450); RED BLOOD COUNT 4.16 10^6/uL (4.00-5.40); WHITE BLOOD COUNT 9.1 10^3/uL (4.0-10.0)
[2023-04-23 17:39] LABS: APPEARANCE, URINE CLEAR (CLEAR); BACTERIA, URINE AUTO 1+ (NEGATIVE); BILIRUBIN, URINE AUTO NEGATIVE (NEGATIVE); BLOOD, URINE BLOOD 1+ (NEGATIVE); COLOR, URINE YELLOW (YELLOW); GLUCOSE, URINE (UA) AUTO NEGATIVE (NEGATIVE); KETONE, URINE AUTO NEGATIVE (NEGATIVE); LEUKOCYTE ESTERASE, URINE AUTO 1+ (NEGATIVE); MUCUS, URINE SMALL (NEGATIVE); NITRITE, URINE AUTO NEGATIVE (NEGATIVE); PROTEIN, URINE AUTO NEGATIVE (NEGATIVE); RBC, URINE AUTO 2 /HPF (0-3); SPECIFIC GRAVITY URINE AUTO 1.018 (1.002-1.035); SQUAMOUS EPITHELIAL CELL UR AU 1 /HPF (0-6); UROBILINOGEN, URINE AUTO 0.2 mg/dL (0.0-2.0); WBC, URINE AUTO 58 /HPF (0-3)
[2023-04-23 17:56] LABS: IRON (FE) 72 UG/DL (50-170); PERCENT SATURATION 19.6 % (13.2-45.0); TOTAL IRON BINDING CAPACITY 368 UG/DL (250-425)
[2023-04-23 17:57] LABS: ALBUMIN 3.4 G/DL (3.2-5.2); ALKALINE PHOSPHATASE 84 U/L (46-116); ALT/SGPT 12 U/L (7.0-40); AST/SGOT 16 U/L (<34); BILIRUBIN,TOTAL 0.4 MG/DL (0.3-1.2); BLOOD UREA NITROGEN 16 MG/DL (9-23); CARBON DIOXIDE LEVEL 27 MMOL/L (20-31); CHLORIDE LEVEL 104 MMOL/L (98-107); CHOLESTEROL LEVEL 149 MG/DL (<200); CHOLESTEROL RISK RATIO 4.18 (<5); CREATININE FOR GFR 0.83 MG/DL (0.55-1.30); GLOMERULAR FILTRATION RATE > 60.0 (>39); GLUCOSE, FASTING 140 MG/DL (74-106); HDL CHOLESTEROL 35.6 MG/DL (>40); NON-HDL-C 113.4 MG/DL; POTASSIUM SERUM 4.4 MMOL/L (3.5-5.1); SODIUM LEVEL 137 MMOL/L (136-145); THYROID STIMULATING HORMONE 3.769 uIU/ML (0.55-4.78); TOTAL PROTEIN 6.6 G/DL (5.7-8.2); TRIGLYCERIDES LEVEL 545 MG/DL (<150)
[2023-04-23 17:58] LABS: FERRITIN 17.8 NG/ML (7.3-270.7)
[2023-04-23 17:59] LABS: FREE T4 0.96 NG/DL (0.89-1.76)
== END ==
LOC: M SFHCADAM 11:28
PROVIDERS: ATTEND Family Medicine
DX: E78.5 Hyperlipidemia, unspecified (principal); E04.1 Nontoxic single thyroid nodule; Z86.2 Personal history of diseases of the blood and blood-forming organs and certain disorders involving the immune mechanism; I11.9 Hypertensive heart disease without heart failure; D50.0 Iron deficiency anemia secondary to blood loss (chronic); K57.92 Diverticulitis of intestine, part unspecified, without perforation or abscess without bleeding; Z79.899 Other long term (current) drug therapy

== ENCOUNTER → 2023-05-12 | Outpatient (REF) | payer MEDICARE ==
[2023-05-12 16:20] LABS: BASO # 0.1 10^3/uL (0.0-0.2); BASO % 0.8 % (0.0-1.0); EOS # 0.2 10^3/uL (0.0-0.5); EOS % 3.1 % (0.0-3.0); HEMATOCRIT 39.6 % (36.0-47.0); HEMOGLOBIN 12.9 g/dl (12.0-15.5); LYMPH # 2.5 10^3/uL (1.5-5.0); LYMPH % 33.4 % (24.0-44.0); MEAN CORPUSCULAR HEMOGLOBIN 30.7 pg (27.0-33.0); MEAN CORPUSCULAR HGB CONC 32.6 g/dl (32.0-36.5); MEAN CORPUSCULAR VOLUME 94.3 fl (80.0-96.0); MONO # 0.7 10^3/uL (0.0-0.8); MONO % 9.2 % (2.0-8.0); NEUTROPHILS # 3.9 10^3/uL (1.5-8.5); NEUTROPHILS % 53.2 % (36.0-66.0); PLATELET COUNT, AUTOMATED 324 10^3/uL (150-450); WHITE BLOOD COUNT 7.4 10^3/uL (4.0-10.0)
[2023-05-12 16:37] LABS: CALCIUM LEVEL 9.4 MG/DL (8.3-10.6); GLOMERULAR FILTRATION RATE 57.2 (>39); POTASSIUM SERUM 4.4 MMOL/L (3.5-5.1)
== END ==
LOC: M SFHCADAM 14:09
PROVIDERS: ATTEND Physician Assistant
DX: K57.92 Diverticulitis of intestine, part unspecified, without perforation or abscess without bleeding (principal)

== ENCOUNTER → 2023-05-21 | Outpatient (REF) | payer MEDICARE | LOC: M SFHCWAGY 12:49 | PROVIDERS: ATTEND Specialist | DX: N39.0 Urinary tract infection, site not specified (principal) ==

== ENCOUNTER → 2023-08-08 | Outpatient (CLI) | payer MEDICARE ==
[~2023-08-08] MED LIST changes: -OXYB5TAB11 PO; +OXYB5TAB14 PO
== END ==
LOC: M WHC 08:54
PROVIDERS: ATTEND Family Medicine
DX: Z12.31 Encounter for screening mammogram for malignant neoplasm of breast (principal); Z13.820 Encounter for screening for osteoporosis; Z78.0 Asymptomatic menopausal state

== ENCOUNTER → 2023-10-13 | Outpatient (REF) | payer MEDICARE ==
[~2023-10-13] MED LIST changes: +ONDA-282 PO; +ONDA-284 PO; -ONDA4TAB6 PO; -ONDA8TAB8 PO
[2023-10-13 13:28] LABS: BASO # 0.1 10^3/uL (0.0-0.2); BASO % 1.1 % (0.0-1.0); CALCIUM LEVEL 9.5 MG/DL (8.3-10.6); CREATININE FOR GFR 1.1 MG/DL (0.55-1.30); EOS # 0.3 10^3/uL (0.0-0.5); GLOMERULAR FILTRATION RATE 51.1 (>39); HEMATOCRIT 38.4 % (36.0-47.0); HEMOGLOBIN 12.6 g/dl (12.0-15.5); LYMPH # 2.1 10^3/uL (1.5-5.0); LYMPH % 31.6 % (24.0-44.0); MAGNESIUM LEVEL 1.8 MG/DL (1.8-2.4); MEAN CORPUSCULAR HEMOGLOBIN 30.6 pg (27.0-33.0); MEAN CORPUSCULAR HGB CONC 32.8 g/dl (32.0-36.5); MEAN CORPUSCULAR VOLUME 93.2 fl (80.0-96.0); MONO # 0.5 10^3/uL (0.0-0.8); MONO % 8.1 % (2.0-8.0); NEUTROPHILS # 3.6 10^3/uL (1.5-8.5); NEUTROPHILS % 53.7 % (36.0-66.0); PLATELET COUNT, AUTOMATED 291 10^3/uL (150-450); POTASSIUM SERUM 4.6 MMOL/L (3.5-5.1); RED BLOOD COUNT 4.12 10^6/uL (4.00-5.40); WHITE BLOOD COUNT 6.6 10^3/uL (4.0-10.0)
== END ==
LOC: M SFHCADAM 10:26
PROVIDERS: ATTEND Physician Assistant
DX: K57.92 Diverticulitis of intestine, part unspecified, without perforation or abscess without bleeding (principal)

== ENCOUNTER → 2023-12-11 | Outpatient (REF) | payer MEDICARE ==
[2023-12-11 18:41] LABS: APPEARANCE, URINE HAZY (CLEAR); BACTERIA, URINE AUTO NEGATIVE (NEGATIVE); BILIRUBIN, URINE AUTO NEGATIVE (NEGATIVE); BLOOD, URINE BLOOD 1+ (NEGATIVE); COLOR, URINE YELLOW (YELLOW); GLUCOSE, URINE (UA) AUTO NEGATIVE (NEGATIVE); KETONE, URINE AUTO NEGATIVE (NEGATIVE); LEUKOCYTE ESTERASE, URINE AUTO TRACE (NEGATIVE); MUCUS, URINE SMALL (NEGATIVE); NITRITE, URINE AUTO NEGATIVE (NEGATIVE); PROTEIN, URINE AUTO NEGATIVE (NEGATIVE); RBC, URINE AUTO 15 /HPF (0-3); SPECIFIC GRAVITY URINE AUTO 1.019 (1.002-1.035); SQUAMOUS EPITHELIAL CELL UR AU 1 /HPF (0-6); UROBILINOGEN, URINE AUTO 0.2 mg/dL (0.0-2.0); WBC, URINE AUTO 9 /HPF (0-3)
== END ==
LOC: M SFHCADAM 17:01
PROVIDERS: ATTEND Physician Assistant
DX: R35.0 Frequency of micturition (principal)

== ENCOUNTER → 2023-12-23 | Outpatient (REF) | payer MEDICARE ==
[2023-12-23 18:41] LABS: APPEARANCE, URINE CLOUDY (CLEAR); BACTERIA, URINE AUTO NEGATIVE (NEGATIVE); BILIRUBIN, URINE AUTO NEGATIVE (NEGATIVE); BLOOD, URINE BLOOD 2+ (NEGATIVE); COLOR, URINE YELLOW (YELLOW); GLUCOSE, URINE (UA) AUTO NEGATIVE (NEGATIVE); KETONE, URINE AUTO NEGATIVE (NEGATIVE); LEUKOCYTE ESTERASE, URINE AUTO 3+ (NEGATIVE); NITRITE, URINE AUTO NEGATIVE (NEGATIVE); PROTEIN, URINE AUTO 1+ mg/dL (NEGATIVE); RBC, URINE AUTO 12 /HPF (0-3); SPECIFIC GRAVITY URINE AUTO 1.016 (1.002-1.035); SQUAMOUS EPITHELIAL CELL UR AU 1 /HPF (0-6); UROBILINOGEN, URINE AUTO 0.2 mg/dL (0.0-2.0); WBC, URINE AUTO TNTC /HPF (0-3)
== END ==
LOC: M SFHCADAM 13:06
PROVIDERS: ATTEND Family Medicine
DX: R30.0 Dysuria (principal)

== ENCOUNTER → 2024-01-16 | Outpatient (CLI) | payer MEDICARE | LOC: M RAD 13:13 | PROVIDERS: ATTEND Family Medicine | DX: E04.1 Nontoxic single thyroid nodule (principal) ==

== ENCOUNTER → 2024-01-22 | Outpatient (REF) | payer MEDICARE ==
[2024-01-22 14:03] LABS: APPEARANCE, URINE CLEAR (CLEAR); BACTERIA, URINE AUTO NEGATIVE (NEGATIVE); BILIRUBIN, URINE AUTO NEGATIVE (NEGATIVE); BLOOD, URINE BLOOD 1+ (NEGATIVE); COLOR, URINE YELLOW (YELLOW); GLUCOSE, URINE (UA) AUTO NEGATIVE (NEGATIVE); KETONE, URINE AUTO NEGATIVE (NEGATIVE); LEUKOCYTE ESTERASE, URINE AUTO 1+ (NEGATIVE); MUCUS, URINE SMALL (NEGATIVE); NITRITE, URINE AUTO NEGATIVE (NEGATIVE); PROTEIN, URINE AUTO NEGATIVE (NEGATIVE); RBC, URINE AUTO 2 /HPF (0-3); SPECIFIC GRAVITY URINE AUTO 1.017 (1.002-1.035); SQUAMOUS EPITHELIAL CELL UR AU 1 /HPF (0-6); UROBILINOGEN, URINE AUTO 0.2 mg/dL (0.0-2.0); WBC, URINE AUTO 16 /HPF (0-3)
== END ==
LOC: M SFHCADAM 08:18
PROVIDERS: ATTEND Family Medicine
DX: N39.0 Urinary tract infection, site not specified (principal)

== ENCOUNTER 2024-03-06 07:55 | Emergency (ER) | payer MEDICARE ==
[~2024-03-06] VITALS: Ht 165.1 cm; Wt 52.7 kg
[2024-03-06] MEDS ORDERED: NIRM1TAB13 (08:11)
[2024-03-06] MEDS ORDERED: ONDA-83 (08:11)
[2024-03-06] MEDS ORDERED: AMOX500C (08:11)
[2024-03-06] MEDS: NS 500 ML IV ONE (09:03)
[2024-03-06 09:04] LABS: BASO % 0.3 % (0.0-1.0); EOS # 0.2 10^3/uL (0.0-0.5); EOS % 2.9 % (0.0-3.0); HEMATOCRIT 40.7 % (36.0-47.0); HEMOGLOBIN 13.7 g/dl (12.0-15.5); LYMPH # 1.7 10^3/uL (1.5-5.0); LYMPH % 28.5 % (24.0-44.0); MEAN CORPUSCULAR HEMOGLOBIN 30.5 pg (27.0-33.0); MEAN CORPUSCULAR HGB CONC 33.7 g/dl (32.0-36.5); MEAN CORPUSCULAR VOLUME 90.6 fl (80.0-96.0); MONO # 0.5 10^3/uL (0.0-0.8); NEUTROPHILS # 3.5 10^3/uL (1.5-8.5); NEUTROPHILS % 58.6 % (36.0-66.0); PLATELET COUNT, AUTOMATED 243 10^3/uL (150-450); RED BLOOD COUNT 4.49 10^6/uL (4.00-5.40); WHITE BLOOD COUNT 5.9 10^3/uL (4.0-10.0)
[2024-03-06 09:26] LABS: CALCIUM LEVEL 8.9 MG/DL (8.3-10.6); CREATININE FOR GFR 1.62 MG/DL (0.55-1.30); GLOMERULAR FILTRATION RATE 32.7 (>39); MAGNESIUM LEVEL 1.7 MG/DL (1.8-2.4); POTASSIUM SERUM 4.3 MMOL/L (3.5-5.1)
[2024-03-06] MEDS: NS 1,000 ML IV ONE (11:06)
[2024-03-06] MEDS: MAGNESIUM OXIDE 400MG TAB (MAG-OX) PO ONE (11:06)
[2024-03-06 12:48] VITALS: BP 143/65; TEMP 97.6; O2SAT 95
== END 2024-03-06 12:50 | disposition home or self-care (01) ==
LOC: M ED 07:55
DX: E86.0 Dehydration (principal); N39.0 Urinary tract infection, site not specified; E83.42 Hypomagnesemia; N17.9 Acute kidney failure, unspecified; R11.2 Nausea with vomiting, unspecified; I45.10 Unspecified right bundle-branch block; K58.9 Irritable bowel syndrome, unspecified; F41.9 Anxiety disorder, unspecified; Z88.1 Allergy status to other antibiotic agents; Z88.2 Allergy status to sulfonamides; Z88.5 Allergy status to narcotic agent; Z88.6 Allergy status to analgesic agent; Z88.8 Allergy status to other drugs, medicaments and biological substances; Z79.82 Long term (current) use of aspirin; Z79.2 Long term (current) use of antibiotics; Z79.83 Long term (current) use of bisphosphonates; Z79.899 Other long term (current) drug therapy

== ENCOUNTER → 2024-03-19 | Outpatient (REF) | payer MEDICARE ==
[~2024-03-19] MED LIST changes: +AMOX500C; +NIRM1TAB13; +ONDA-83
[2024-03-19 18:06] LABS: HEMATOCRIT 37.2 % (36.0-47.0); MEAN CORPUSCULAR HEMOGLOBIN 30.2 pg (27.0-33.0); MEAN CORPUSCULAR HGB CONC 32.3 g/dl (32.0-36.5); MEAN CORPUSCULAR VOLUME 93.7 fl (80.0-96.0); PLATELET COUNT, AUTOMATED 352 10^3/uL (150-450); RED BLOOD COUNT 3.97 10^6/uL (4.00-5.40); WHITE BLOOD COUNT 8.8 10^3/uL (4.0-10.0)
[2024-03-19 18:29] LABS: CALCIUM LEVEL 9.9 MG/DL (8.3-10.6); CREATININE FOR GFR 1.11 MG/DL (0.55-1.30); GLOMERULAR FILTRATION RATE 50.6 (>39); POTASSIUM SERUM 4.2 MMOL/L (3.5-5.1)
== END ==
LOC: M SFHCADAM 13:41
PROVIDERS: ATTEND Family Medicine
DX: N17.9 Acute kidney failure, unspecified (principal); N39.0 Urinary tract infection, site not specified; U07.1 COVID-19

== ENCOUNTER → 2024-04-20 | Outpatient (REF) | payer MEDICARE ==
[2024-04-21 13:05] LABS: APPEARANCE, URINE HAZY (CLEAR); BACTERIA, URINE AUTO NEGATIVE (NEGATIVE); BILIRUBIN, URINE AUTO NEGATIVE (NEGATIVE); BLOOD, URINE BLOOD 1+ (NEGATIVE); CALCIUM OXALATE CRYSTALS MODERATE; COLOR, URINE YELLOW (YELLOW); GLUCOSE, URINE (UA) AUTO NEGATIVE (NEGATIVE); KETONE, URINE AUTO NEGATIVE (NEGATIVE); LEUKOCYTE ESTERASE, URINE AUTO NEGATIVE (NEGATIVE); MUCUS, URINE SMALL (NEGATIVE); NITRITE, URINE AUTO NEGATIVE (NEGATIVE); PROTEIN, URINE AUTO NEGATIVE (NEGATIVE); RBC, URINE AUTO 2 /HPF (0-3); SPECIFIC GRAVITY URINE AUTO 1.019 (1.002-1.035); SQUAMOUS EPITHELIAL CELL UR AU 3 /HPF (0-6); UROBILINOGEN, URINE AUTO 0.2 mg/dL (0.0-2.0); WBC, URINE AUTO 14 /HPF (0-3); YEAST LIKE CELL URINE AUTO SMALL
== END ==
LOC: M LABDRWAD 12:03
PROVIDERS: ATTEND Physician Assistant
DX: R35.0 Frequency of micturition (principal)

== ENCOUNTER → 2024-05-07 | Outpatient (REF) | payer MEDICARE | LOC: M SFHCPLAZ 17:06 | DX: J06.9 Acute upper respiratory infection, unspecified (principal) ==

== ENCOUNTER → 2024-06-08 | Outpatient (REF) | payer MEDICARE ==
[2024-06-08 17:48] LABS: APPEARANCE, URINE HAZY (CLEAR); BACTERIA, URINE AUTO 1+ (NEGATIVE); BILIRUBIN, URINE AUTO NEGATIVE (NEGATIVE); BLOOD, URINE BLOOD 1+ (NEGATIVE); COLOR, URINE YELLOW (YELLOW); GLUCOSE, URINE (UA) AUTO NEGATIVE (NEGATIVE); KETONE, URINE AUTO NEGATIVE (NEGATIVE); LEUKOCYTE ESTERASE, URINE AUTO TRACE (NEGATIVE); MUCUS, URINE SMALL (NEGATIVE); NITRITE, URINE AUTO NEGATIVE (NEGATIVE); PROTEIN, URINE AUTO NEGATIVE (NEGATIVE); RBC, URINE AUTO 2 /HPF (0-3); SPECIFIC GRAVITY URINE AUTO 1.019 (1.002-1.035); SQUAMOUS EPITHELIAL CELL UR AU 1 /HPF (0-6); UROBILINOGEN, URINE AUTO 0.2 mg/dL (0.0-2.0); WBC, URINE AUTO 22 /HPF (0-3); YEAST LIKE CELL URINE AUTO SMALL
[2024-06-08 18:07] LABS: THYROID STIMULATING HORMONE 3.288 uIU/ML (0.55-4.78)
[2024-06-08 18:08] LABS: ALBUMIN 3.6 G/DL (3.2-5.2); BILIRUBIN,TOTAL 0.4 MG/DL (0.3-1.2); CALCIUM LEVEL 9.4 MG/DL (8.3-10.6); CHOLESTEROL RISK RATIO 3.79 (<5); CREATININE FOR GFR 1.06 MG/DL (0.55-1.30); GLOMERULAR FILTRATION RATE 53.4 (>39); HDL CHOLESTEROL 40.1 MG/DL (>40); LDL CHOLESTEROL 39.9 MG/DL (<100); NON-HDL-C 111.9 MG/DL; POTASSIUM SERUM 4.5 MMOL/L (3.5-5.1); TOTAL PROTEIN 7.2 G/DL (5.7-8.2)
[2024-06-08 18:09] LABS: FREE T4 1.1 NG/DL (0.89-1.76); HEMATOCRIT 39.2 % (36.0-47.0); HEMOGLOBIN 12.5 g/dl (12.0-15.5); MEAN CORPUSCULAR HEMOGLOBIN 29.7 pg (27.0-33.0); MEAN CORPUSCULAR HGB CONC 31.9 g/dl (32.0-36.5); MEAN CORPUSCULAR VOLUME 93.1 fl (80.0-96.0); PLATELET COUNT, AUTOMATED 298 10^3/uL (150-450); RED BLOOD COUNT 4.21 10^6/uL (4.00-5.40); WHITE BLOOD COUNT 7.9 10^3/uL (4.0-10.0)
== END ==
LOC: M SFHCADAM 11:50
PROVIDERS: ATTEND Family Medicine
DX: E04.1 Nontoxic single thyroid nodule (principal); Z13.1 Encounter for screening for diabetes mellitus; N39.0 Urinary tract infection, site not specified; Z98.890 Other specified postprocedural states; I11.9 Hypertensive heart disease without heart failure; E78.5 Hyperlipidemia, unspecified

== ENCOUNTER → 2024-06-28 | Outpatient (REF) | payer MEDICARE | LOC: M SFHCADAM 11:44 | PROVIDERS: ATTEND Family Medicine | DX: R09.81 Nasal congestion (principal) ==

== ENCOUNTER 2024-07-07 11:48 | Emergency (ER) | payer MEDICARE ==
[~2024-07-07] VITALS: Ht 165.1 cm; Wt 56.8 kg
[2024-07-07 12:25] LABS: BASO % 0.6 % (0.0-1.0); EOS # 0.2 10^3/uL (0.0-0.5); EOS % 2.7 % (0.0-3.0); HEMATOCRIT 38.3 % (36.0-47.0); HEMOGLOBIN 12.9 g/dl (12.0-15.5); LYMPH # 2.4 10^3/uL (1.5-5.0); LYMPH % 33.9 % (24.0-44.0); MEAN CORPUSCULAR HEMOGLOBIN 30.7 pg (27.0-33.0); MEAN CORPUSCULAR HGB CONC 33.7 g/dl (32.0-36.5); MEAN CORPUSCULAR VOLUME 91.2 fl (80.0-96.0); MONO # 0.6 10^3/uL (0.0-0.8); MONO % 8.8 % (2.0-8.0); NEUTROPHILS # 3.8 10^3/uL (1.5-8.5); NEUTROPHILS % 53.7 % (36.0-66.0); PLATELET COUNT, AUTOMATED 251 10^3/uL (150-450)
[2024-07-07 12:59] LABS: ALBUMIN 3.6 G/DL (3.2-5.2); BILIRUBIN,TOTAL 0.6 MG/DL (0.3-1.2); CALCIUM LEVEL 9.6 MG/DL (8.3-10.6); CREATININE FOR GFR 0.99 MG/DL (0.55-1.30); GLOMERULAR FILTRATION RATE 57.6 (>39); POTASSIUM SERUM 4.1 MMOL/L (3.5-5.1); TOTAL PROTEIN 7.1 G/DL (5.7-8.2)
[2024-07-07] MEDS: MECLIZINE 12.5 MG TAB PO ONE (13:00)
[2024-07-07] MEDS: ONDANSETRON 4MG 2ML VIAL IV ONE (13:00)
[2024-07-07] MEDS ORDERED: Vestibular PT XX (15:43)
[2024-07-07 15:46] VITALS: BP 160/86
[2024-07-07 15:48] VITALS: TEMP 98.8; O2SAT 99
== END 2024-07-07 15:53 | disposition home or self-care (01) ==
LOC: M ED 11:48
DX: H81.4 Vertigo of central origin (principal); I10 Essential (primary) hypertension; E78.5 Hyperlipidemia, unspecified; Z87.442 Personal history of urinary calculi; K58.9 Irritable bowel syndrome, unspecified; F41.9 Anxiety disorder, unspecified; Z88.2 Allergy status to sulfonamides; Z88.6 Allergy status to analgesic agent; Z88.1 Allergy status to other antibiotic agents; Z88.8 Allergy status to other drugs, medicaments and biological substances; Z79.2 Long term (current) use of antibiotics; Z79.83 Long term (current) use of bisphosphonates; Z79.82 Long term (current) use of aspirin; Z79.899 Other long term (current) drug therapy
CPT/HCPCS: 70450; 80053; 85025; 93005; 96374; 99284; J2405

== ENCOUNTER → 2024-08-11 | Outpatient (CLI) | payer MEDICARE ==
[~2024-08-11] MED LIST changes: +Vestibular PT XX
== END ==
LOC: M WHC 15:21
PROVIDERS: ATTEND Family Medicine
DX: Z12.31 Encounter for screening mammogram for malignant neoplasm of breast (principal); R92.343 Mammographic extreme density, bilateral breasts

== ENCOUNTER → 2024-11-23 | Outpatient (REF) | payer MEDICARE ==
[2024-11-24 13:38] LABS: APPEARANCE, URINE HAZY (CLEAR); BACTERIA, URINE AUTO 1+ (NEGATIVE); BILIRUBIN, URINE AUTO NEGATIVE (NEGATIVE); BLOOD, URINE BLOOD 1+ (NEGATIVE); GLUCOSE, URINE (UA) AUTO NEGATIVE (NEGATIVE); KETONE, URINE AUTO NEGATIVE (NEGATIVE); LEUKOCYTE ESTERASE, URINE AUTO 2+ (NEGATIVE); MUCUS, URINE SMALL (NEGATIVE); NITRITE, URINE AUTO NEGATIVE (NEGATIVE); PROTEIN, URINE AUTO NEGATIVE (NEGATIVE); RBC, URINE AUTO 1 /HPF (0-3); SPECIFIC GRAVITY URINE AUTO 1.016 (1.002-1.035); SQUAMOUS EPITHELIAL CELL UR AU 1 /HPF (0-6); UROBILINOGEN, URINE AUTO 0.2 mg/dL (0.0-2.0); WBC, URINE AUTO 58 /HPF (0-3)
== END ==
LOC: M SFHCADAM 14:51
PROVIDERS: ATTEND Family Medicine
DX: R30.0 Dysuria (principal)

== ENCOUNTER 2024-12-10 18:15 | Emergency (ER) | payer MEDICARE ==
[~2024-12-10] VITALS: Ht 165.1 cm; Wt 56.4 kg
[2024-12-10 20:43] LABS: KETONE, URINE AUTO RFX NEGATIVE (NEGATIVE); LEUKOCYTE ESTERASE UR AUTO RFX NEGATIVE (NEGATIVE); MUCUS, URINE RFX SMALL (NEGATIVE); NITRITE, URINE AUTO RFX NEGATIVE (NEGATIVE); RBC, URINE AUTO RFX 2 /HPF (0-3); SQUAM EPITHELIAL CELL UR AURFX 2 /HPF (0-6)
[2024-12-10 20:52] LABS: PLATELET COUNT, AUTOMATED 250 10^3/uL (150-450)
[2024-12-10 21:04] LABS: ALT/SGPT 20 U/L (7.0-40); AST/SGOT 50 U/L (<34); CALCIUM LEVEL 9.2 MG/DL (8.3-10.6); CARBON DIOXIDE LEVEL 26 MMOL/L (20-31); CHLORIDE LEVEL 103 MMOL/L (98-107); CREATININE FOR GFR 0.83 MG/DL (0.55-1.30); GLOMERULAR FILTRATION RATE 71.7 (>39); POTASSIUM SERUM 4.9 MMOL/L (3.5-5.1); SODIUM LEVEL 141 MMOL/L (136-145)
[2024-12-10 21:15] LABS: WBC, URINE AUTO RFX 16 /HPF (0-3)
[2024-12-10 21:30] LABS: ATYPICAL LYMPH 3 % (0-5); BASOPHILS 1 % (0-1); EOSINOPHILS 2 % (0-3); LYMPHOCYTES 36 % (16-44); MONOCYTES 4 % (0-5); NEUTROPHILS 54 % (28-66)
[2024-12-10 21:31] LABS: PLATELET ESTIMATE NORMAL (NORMAL)
[2024-12-10 22:48] VITALS: BP 149/87; TEMP 97.6; O2SAT 99
== END 2024-12-10 22:51 | disposition home or self-care (01) ==
LOC: M ED 18:15
DX: N20.0 Calculus of kidney (principal); N28.1 Cyst of kidney, acquired; K21.9 Gastro-esophageal reflux disease without esophagitis; H81.4 Vertigo of central origin; K57.30 Diverticulosis of large intestine without perforation or abscess without bleeding; Z87.442 Personal history of urinary calculi; Z79.2 Long term (current) use of antibiotics; Z79.82 Long term (current) use of aspirin; Z79.52 Long term (current) use of systemic steroids; Z79.899 Other long term (current) drug therapy; Z88.1 Allergy status to other antibiotic agents; Z88.2 Allergy status to sulfonamides; Z88.5 Allergy status to narcotic agent; Z88.8 Allergy status to other drugs, medicaments and biological substances

== ENCOUNTER → 2025-01-14 | Outpatient (CLI) | payer MEDICARE | LOC: M WHC 10:52 | PROVIDERS: ATTEND Surgery | DX: N63.11 Unspecified lump in the right breast, upper outer quadrant (principal); R92.331 Mammographic heterogeneous density, right breast | CPT/HCPCS: 76642; 77065; G0279 ==

== ENCOUNTER → 2025-02-09 | Outpatient (REF) | payer MEDICARE ==
[2025-02-09 13:42] LABS: PLATELET COUNT, AUTOMATED 286 10^3/uL (150-450)
[2025-02-09 13:44] LABS: ALT/SGPT 16 U/L (7.0-40); AST/SGOT 20 U/L (<34); CALCIUM LEVEL 9.8 MG/DL (8.3-10.6); CARBON DIOXIDE LEVEL 28 MMOL/L (20-31); CHLORIDE LEVEL 105 MMOL/L (98-107); CHOLESTEROL LEVEL 192 MG/DL (<200); CHOLESTEROL RISK RATIO 6.00 (<5); CREATININE FOR GFR 0.96 MG/DL (0.55-1.30); GLOMERULAR FILTRATION RATE 60.2 (>39); NON-HDL-C 160.0 MG/DL; POTASSIUM SERUM 4.4 MMOL/L (3.5-5.1); SODIUM LEVEL 140 MMOL/L (136-145); TRIGLYCERIDES LEVEL 846 MG/DL (<150)
[2025-02-09 13:46] LABS: FREE T4 1.05 NG/DL (0.89-1.76)
== END ==
LOC: M SFHCADAM 07:54
PROVIDERS: ATTEND Family Medicine
DX: D50.0 Iron deficiency anemia secondary to blood loss (chronic) (principal); E04.1 Nontoxic single thyroid nodule; I11.9 Hypertensive heart disease without heart failure; E78.5 Hyperlipidemia, unspecified; R39.9 Unspecified symptoms and signs involving the genitourinary system

== ENCOUNTER → 2025-03-22 | Outpatient (CLI) | payer MEDICARE | LOC: M RAD 14:27 | PROVIDERS: ATTEND Family Medicine | DX: E04.1 Nontoxic single thyroid nodule (principal) ==

== ENCOUNTER → 2025-03-25 | Outpatient (REF) | payer MEDICARE | LOC: M SFHCADAM 13:18 | PROVIDERS: ATTEND Family Medicine | DX: N39.0 Urinary tract infection, site not specified (principal) ==